=== PATIENT | female | born 1940 | race Caucasian/White ===

== ENCOUNTER 2018-02-14 15:25 | Inpatient (IN) | payer MEDICARE, BC ==
--- OUTSIDE RECORDS SUMMARY | 2018-02-14 15:51 | XMS REPORT ---
:1940 External Reference #:[id number] Author Organization [facility] Address [address] [address] Phone [phone] Care Team Providers Name Role Phone Lizbeth Doshi MD Primary Care Physician Unavailable Payers Type Date Identification Numbers Payment Provider Subscriber Medicare Primary Policy Number: [id number] Medicare Kathi Magana PayID: [id number] [address] [place] [address] Medigap Part B Effective: 2013 Policy Number: BS Facets Kathi Magana [id number] PayID: [id number] [address] [address] [place] [address] Problems Date Description Provider Status Onset: 08/03/2016 Paroxysmal atrial fibrillation Jonel Ugalde M.D., [facility] , Active FASNC Onset: 07/09/2015 Essential hypertension Jonel Ugalde M.D., [facility], Active FASNC Onset: 07/09/2015 Chest pain Jonel Ugalde M.D., [facility], Active FASNC Onset: 11/06/2013 Dyspnea Jonel Ugalde M.D., [facility], Active FASNC Onset: 11/06/2013 Atrial fibrillation Jonel Ugalde M.D., [facility], Active FASNC Family History Date Family Member(s) Problem(s) Comments General Diabetes General Hypertension General Heart Disease General Stroke General Cancer General Rheumatoid Arthritis Social History Type Date Description Comments Marital Status Lives With Alone 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 [employer] Cigarette Use Former Cigarette Smoker 3 Packs 40 years Daily Cigarette Use Quit - Age 56 ETOH Use Denies alcohol use Smoking Patient is a former smoker quit in 1996 Recreational Drug Use Never Used Drugs Daily Caffeine Does Not Consume Caffeine Exercise Type/Frequency Exercises regularly Allergies, Adverse Reactions, Alerts Date Description Reaction Status Severity Comments 11/06/2013 Augmentin Cramps in stomach active per patient 08/03/2016 Levaquin active moderate, abdominal discomfort Medications Medication Date Status Form Strength Qnty SIG Indications Ordering Provider Nebulizer 01/26 Active Kit 1unit 1 unit J47.1 Cecile Kit/Tubing/Mout s nebulization Yina, hpiece every 4- 6 MD hours as needed Acapella 01/26 Active Misc use as J47.1 directed MD Yina Oxygen 01/26 Active Misc 1unit please use R09.02 s o2 at 3l/min Yina, during MD exertion, pls provide pt with portable o2 concentrator Warfarin Sodium Active 3mg 1 by mouth Glenda, daily as tavon Patel MD adjusted by Dr. Doshi Combivent Active Aerosol 20-100mcg 2 puffs 4 Unknown Respimat /0000 /Act times daily prn Ventolin HFA Active Aerosol 108(90Bas 2 puffs by Unknown e) mouth four mcg/Act times a day as needed Fluticasone Active Suspension 50mcg/Act 2 sprays Unknown each nostril daily as needed Advair Diskus Active 2 puffs Unknown twice a day Omeprazole Active Capsules DR 40mg 1 by mouth every day Bisoprolol Active Tablets 10mg Glenda Lizbeth Ayala MD Digoxin Active Tablets 125mcg 1 by mouth Glenda, daily Lizbeth Ayala MD Spironolactone Active Tablets 25mg 1 by mouth Glenda, daily Lizbeth Ayala MD Diltiazem HCL Active Caps ER 360mg Take One Unknown ER 24HR Capsule By Mouth One Time Daily Torsemide Active Tablets 20mg 1 by mouth daily Sodium Chloride Active Tablets 1gm 1 by mouth once a day Hydrocodone-Miller Active Tablets 5-325mg 1-2 by mouth keiry Doshiinophen / daily as Lizbeth Ayala needed Multivitamin Active Tablets Adlt 50+ once a day Unknown Adults 50+ /0000 Doxycycline 01/26 Hx Capsules 100mg 20cap 1 tablet by J44.1 Cecile Monohydrate s mouth every Yina, - 12 hours 02/05 Prednisone 01/26 Hx Tablets 10mg 30tab 30mg daily J44.1 Cecile /2017 s for 1 week, Yina, - 20mg daily 02/05 for 1 week, 10 mg daily for 1 week Keflex 02/11 Hx Capsules 500mg 9caps 1 by mouth Catarino three times D. Parag, - a day for 3 M.D. Sotalol HCL 02/11 Hx Tablets 160mg 180ta 1 tab by Jonel bs mouth twice Mosquera - per day Aftab, 01/25 M.D., FAC, JUAN PABLO Norvasc 01/14 Hx Tablets 2.5mg 90tab Take one 427.31 s tablet per Mosquera - day 01/14 M.D., FAC, JUAN PABLO Lisinopril 11/06 Hx Tablets 40mg 90tab 1/2 tablet s by mouth Mosquera - every day Ugalde, 12/28 M.D., FAC, JUAN PABLO Sotalol HCL 05/07 Hx Tablets 120mg 180ta 1 tab by bs mouth twice Mosquera - a day Ugalde02/11 M.D., FAC, JUAN PABLO Lisinopril Hx Tablets 20mg 1 po qd Unknown /0000 - 11/06 Aspirin Ec Hx Tablets [address] 81mg 100ta 1 po qd Unknown / bs - 01/[address] 40mg 30cap 1 po qd Unknown /0000 s - 08/02 Calcium Hx Tablets 600mg 1 po bid Unknown /0000 - 07/27 Flovent HFA Hx Aerosol 110mcg/Ac 3unit 2 puffs Unknown / t s twice daily - 10/11 Multivitamins Hx Capsules 1 by mouth Unknown /0000 every day - 01/25 Ranitidine HCL Hx Capsules 300mg 1 cap by Unknown /0000 mouth every - night 12/28 Losartan Hx Tablets 100mg 1 by mouth Unknown Potassium /0000 every day - 03/06 Amlodipine Hx Tablets 10mg 1 by mouth Unknown Besylate /0000 every day - 01/25 Jantoven Hx Tablets 3mg 1 tab by Unknown /0000 mouth in in - the morning 02/[address] 81mg 1 by mouth Unknown /0000 every day - 02/05 Vitamin D-3 Hx Capsules 1000Unit 1 by mouth Unknown /0000 every day - 02/05 Medications Administered in Office Medication Date Status Form Strength Qnty SIG Indications Ordering Provider Inj, Administered Injection Jonel Mosquera Regadenoson, 017 Ugalde, 0.1 MG M.D., FACC, FASNC Technetium TC Administered Injection Jonel Mosquera 99M 017 Ugalde, Tetrofosmin, M.D., FACC, Per Unit Dose FASNC Up To 40 Millicuries Inj, Administered Injection Jonel Mosquera Regadenoson, 015 Ugalde, 0.1 MG M.D., FACC, FASNC Technetium TC Administered Injection Jonel Mosquera 99M 015 Ugalde, Tetrofosmin, M.D., FACC, Per Unit Dose FASNC Up To 40 Millicuries Vital Signs Date Vital Result Comment 02/06/2018 Height 67 inches 5'7" Weight 135.00 lb BP Systolic 114 mmHg BP Diastolic 62 mmHg Respiratory Rate 20 /min Body Temperature 97.9 F Pain Level 4 BMI (Body Mass Index) 21.1 kg/m2 01/26/2018 Height 67 inches 5'7" Weight 135.00 lb per pt, at 3 weeks ago Heart Rate 92 /min BP Systolic Sitting 128 mmHg Rue reg cuff BP Diastolic Sitting 74 mmHg Rue reg cuff Respiratory Rate 16 /min O2 % BldC Oximetry 93 % On Ra BMI (Body Mass Index) 21.1 kg/m2 Neck Circumference in inches 14 03/14/2017 Height 67 inches 5'7" Weight 161.00 lb with shoes Heart Rate 84 /min reg with ectopy BP Systolic Sitting 130 mmHg Lue reg cuff BP Diastolic Sitting 70 mmHg Lue reg cuff BP Systolic Standing 124 mmHg Lue reg cuff BP Diastolic Standing 70 mmHg Lue reg cuff Respiratory Rate 14 /min BMI (Body Mass Index) 25.2 kg/m2 Ejection Fraction 60-65% 03/01/2017-echo 12/29/2016 Height 67 inches 5'7" 5'7 Weight 159.00 lb with shoes Heart Rate 80 /min BP Systolic Sitting 176 mmHg Lue reg cuff BP Diastolic Sitting 78 mmHg Lue reg cuff BP Systolic Standing 156 mmHg Lue reg cuff BP Diastolic Standing 76 mmHg Lue reg cuff Respiratory Rate 18 /min pt feels SOB BMI (Body Mass Index) 24.9 kg/m2 Ejection Fraction 60-65% echo 02/20/15 08/03/2016 Height 67 inches 5'7" 5'7 Weight 158.00 lb with shoes Heart Rate 86 /min BP Systolic Sitting 144 mmHg reg cuff Rue BP Diastolic Sitting 80 mmHg reg cuff Rue BP Systolic Standing 144 mmHg " " BP Diastolic Standing 72 mmHg " " Respiratory Rate 16 /min BMI (Body Mass Index) 24.7 kg/m2 Ejection Fraction 60-65% echo 02/20/15 07/28/2015 Height 67 inches 5'7 Weight 177.50 lb with shoes Heart Rate 82 /min BP Systolic Sitting 140 mmHg Ra lg cuff BP Diastolic Sitting 76 mmHg Ra lg cuff BP Systolic Standing 136 mmHg Ra lg cuff BP Diastolic Standing 70 mmHg Ra lg cuff Respiratory Rate 17 /min BMI (Body Mass Index) 27.8 kg/m2 Ejection Fraction 60-65% date 02/20/15 ECHO 07/09/2015 Height 67 inches 5'7" 5 Weight 177.00 lb Heart Rate 76 /min BP Systolic Sitting 138 mmHg left arm, reg cuff BP Diastolic Sitting 84 mmHg left arm, reg cuff BP Systolic Standing 136 mmHg left arm, reg cuff BP Diastolic Standing 78 mmHg left arm, reg cuff Respiratory Rate 16 /min BMI (Body Mass Index) 27.7 kg/m2 Ejection Fraction 60-65% 02/20/15 02/25/2015 Height 67 inches 5'7" 5 Weight 182.00 lb w/shoes Heart Rate 60 /min BP Systolic 138 mmHg LA reg cuff BP Diastolic 74 mmHg LA reg cuff BMI (Body Mass Index) 28.5 kg/m2 Ejection Fraction 60-65 echo 02/20/15 02/18/2015 Height 67 inches 5 Weight 183.00 lb Heart Rate 60 /min BP Systolic Sitting 142 mmHg right arm, reg cuff BP Diastolic Sitting 70 mmHg right arm, reg cuff BP Systolic Standing 140 mmHg right arm, reg cuff BP Diastolic Standing 68 mmHg right arm, reg cuff Respiratory Rate 20 /min BMI (Body Mass Index) 28.7 kg/m2 Ejection Fraction 62% 10/23/13 01/24/2015 Height 67 inches 5'7" Weight 183.00 lb Heart Rate 56 /min BP Systolic Sitting 194 mmHg LA reg cuff BP Diastolic Sitting 94 mmHg LA reg cuff BP Systolic Standing 172 mmHg LA BP Diastolic Standing 80 mmHg LA Respiratory Rate 14 /min BMI (Body Mass Index) 28.7 kg/m2 01/14/2015 Height 67 inches 5'7" Weight 183.00 lb no shoes Heart Rate 56 /min BP Systolic Sitting 162 mmHg Ra, reg cuff BP Diastolic Sitting 74 mmHg Ra, reg cuff BP Systolic Standing 154 mmHg Ra BP Diastolic Standing 78 mmHg Ra Respiratory Rate 16 /min BMI (Body Mass Index) 28.7 kg/m2 01/14/2014 Height 66.25 inches 5'6.25" Weight 178.00 lb Heart Rate 70 /min sitting/ 72 standing BP Systolic Sitting 148 mmHg BP Diastolic Sitting 84 mmHg BP Systolic Standing 154 mmHg BP Diastolic Standing 86 mmHg Respiratory Rate 18 /min BMI (Body Mass Index) 28.5 kg/m2 11/06/2013 Height 66.25 inches 5'6.25" Weight 176.00 lb Heart Rate 66 /min BP Systolic Sitting 174 mmHg left arm, reg cuff BP Diastolic Sitting 90 mmHg left arm, reg cuff BP Systolic Standing 156 mmHg left arm, reg cuff BP Diastolic Standing 84 mmHg left arm, reg cuff Respiratory Rate 16 /min BMI (Body Mass Index) 28.2 kg/m2 Results Test Date Test Result H/L Range Note Laboratory test 09/09/2016 Non-Primary Special Educator Interface SEE RESULT BELOW 1 finding Order Laboratory test 02/18/2015 Troponin I 0.03 ng/mL High <0.03 2, 3 finding Basic Metabolic 02/18/2015 Sodium 135 mmol/L 133-145 2 Panel Potassium 4.8 mmol/L 3.5-5.0 2 Chloride 99 mmol/L Low 101-111 2 Co2 Carbon Dioxide 29 mmol/L 22-32 2 Anion Gap 7 mmol/L 2-11 2 Glucose 96 mg/dL 70-100 2 Blood Urea Nitrogen 16 mg/dL 6-24 2 Creatinine 0.75 mg/dL 0.51-0.95 2 BUN/Creatinine Ratio 21.3 High 8-20 2 Calcium 9.2 mg/dL 8.6-10.3 2 Egfr Non- 75.3 >60 2 Egfr 96.9 >60 2, 4 CBC Auto Diff 02/05/2015 White Blood Count 8.6 10^3/uL 4.8-10.8 Red Blood Count 4.65 10^6/uL 4.0-5.4 Hemoglobin 14.5 g/dL 12.0-16.0 Hematocrit 43 % 35-47 Mean Corpuscular Volume 93 fL 80-97 Mean Corpuscular Hemoglobin 31 pg 27-31 Mean Corpuscular HGB Conc 33 g/dL 31-36 Red Cell Distribution Width 14 % 10.5-15 Platelet Count 285 10^3/uL 150-450 Mean Platelet Volume 9 um3 7.4-10.4 Abs Neutrophils 5.6 10^3/uL 1.5-7.7 Abs Lymphocytes 1.8 10^3/uL 1.0-4.8 Abs Monocytes 1.0 10^3/uL High 0-0.8 Abs Eosinophils 0.1 10^3/uL 0-0.6 Abs Basophils 0.1 10^3/uL 0-0.2 Abs Nucleated RBC 0 10^3/uL Granulocyte % 65.6 % 38-83 Lymphocyte % 21.2 % Low 25-47 Monocyte % 11.4 % High 1-9 Eosinophil % 1.2 % 0-6 Basophil % 0.6 % 0-2 Nucleated Red Blood Cells % 0 Inr/Protime 02/05/2015 Inr 3.26 High 0.78-1.07 Pre Cath Panel 02/05/2015 Activated Partial 45.8 seconds High 26.0-36.3 Thrombo Time Basic Metabolic Panel 02/05/2015 Sodium 135 mmol/L 133-145 Potassium 4.5 mmol/L 3.5-5.0 Chloride 100 mmol/L Low 101-111 Co2 Carbon Dioxide 31 mmol/L 22-32 Anion Gap 4 mmol/L 2-11 Glucose 83 mg/dL 70-100 Blood Urea Nitrogen 14 mg/dL 6-24 Creatinine 0.69 mg/dL 0.51-0.95 BUN/Creatinine Ratio 20.3 High 8-20 Calcium 9.1 mg/dL 8.6-10.3 Egfr Non- 82.9 >60 Egfr 106.7 >60 5 Basic Metabolic Panel 11/13/2013 Sodium 136 mmol/L 133-145 Potassium 4.4 mmol/L 3.5-5.0 Chloride 101 mmol/L 101-111 Co2 Carbon Dioxide 29.0 mmol/L 22-32 Anion Gap 6.0 mmol/L 2-11 Glucose 74 mg/dL 70-100 Blood Urea Nitrogen 14 mg/dL 6-24 Creatinine 0.70 mg/dL 0.50-1.40 BUN/Creatinine Ratio 20.0 8-20 Calcium 9.4 mg/dL 8.1-9.9 Egfr Non- 81.8 >60 Egfr 105.2 >60 6 Inr/Protime 11/13/2013 Inr 2.64 High 0.85-1.06 1 SEE RESULT BELOW Name: KATHI MAGANA : [address]: Abdoul Esteves MD Acct: [id number] Unit: [id number] AGE: 76 Location: THYROID Re09/09/16 SEX: F Status: REG REF SPEC: [id number] NATALI: 09/09/16-914 [facility] DR: Martin Augustin MD REQ: [id number] RECD: 09/09/16-999 STATUS: JUSTINE YAO DR: Abdoul Doshi MD _ ORDERED: FN ASP DEEP, FNA IMMEDIATE S FINAL DIAGNOSIS Thyroid, left inferior, Ultrasound guided, fine needle aspiration: Benign thyroid nodule-involutional (Reading class II). The specimen demonstrates abundant watery proteinaceous fluid, a modest amount of benign appearing follicular epithelium arranged in uniform sheets, medium sized follicles and only occasional small groups. Abundant pigmented and non-pigmented macrophages are seen in the background. No features of papillary carcinoma are seen. In this clinical setting the risk of malignancy is less than 3%. Clinical management of this thyroid nodule should be based on clinical and radiographic features as well as the above findings. THYROID LEFT - US GUIDED FINE NEEDLE ASPIRATION CLINICAL HISTORY Left inferior pole- 1.9x 1.6x 1.6cm CONTINUED ON NEXT PAGE * ML=Testing performed at Main Lab DEPARTMENT OF PATHOLOGY, [address] [place] [address] Kristofer Ferguson M.D. Director [facility] # [id number] RUN DATE: 09/09/16 [facility] LAB LIVE PAGE 2 Patient: KATHI MAGANA [id number] (Continued) IMMEDIATE INTERPRETATION (Continued) IMMEDIATE INTERPRETATION Pass 1-inadequate Pass 2-adequate GROSS DESCRIPTION 8- alcohol fixed slide(s) 2 - passes Signed (signature on file) Kristofer Ferguson MD 0948 END OF REPORT * ML=Testing performed at Main Lab DEPARTMENT OF PATHOLOGY, [address] [place] [address] Kristofer Ferguson M.D. Director [facility] # [id number] 2 today 3 Reference Range and Interpretation: TnI (ng/mL) Interpretation Less Than 0.03 ng/mL Not supportive of diagnosis of DC 0.03 - 0.50 ng/mL Indeterminate: suggest serial studies if clinically indicated. Greater than 0.5 ng/mL Consistent with diagnosis of DC 4 Because ethnic data is not always readily available, this report includes an eGFR for both -Americans and non- Americans. The National Kidney Disease Education Program (NKDEP) does not endorse the use of the MDRD equation for patients that are not between the ages of 18 and 70, are , have extremes of body size, muscle mass, or nutritional status, or are non- or non-. According to the National Kidney Foundation, irrespective of diagnosis, the stage of the disease is based on the level of kidney function: Stage Description GFR(mL/min/1.73 m(2)) 1 Kidney damage with normal or decreased GFR 90 2 Kidney damage with mild decrease in GFR 60-89 3 Moderate decrease in GFR 30-59 4 Severe decrease in GFR 15-29 5 Kidney failure <15 (or dialysis) 5 Because ethnic data is not always readily available, this report includes an eGFR for both -Americans and non- Americans. The National Kidney Disease Education Program (NKDEP) does not endorse the use of the MDRD equation for patients that are not between the ages of 18 and 70, are , have extremes of body size, muscle mass, or nutritional status, or are non- or non-. According to the National Kidney Foundation, irrespective of diagnosis, the stage of the disease is based on the level of kidney function: Stage Description GFR(mL/min/1.73 m(2)) 1 Kidney damage with normal or decreased GFR 90 2 Kidney damage with mild decrease in GFR 60-89 3 Moderate decrease in GFR 30-59 4 Severe decrease in GFR 15-29 5 Kidney failure <15 (or dialysis) 6 Because ethnic data is not always readily available, this report includes an eGFR for both -Americans and non- Americans. The National Kidney Disease Education Program (NKDEP) does not endorse the use of the MDRD equation for patients that are not between the ages of 18 and 70, are , have extremes of body size, muscle mass, or nutritional status, or are non- or non-. According to the National Kidney Foundation, irrespective of diagnosis, the stage of the disease is based on the level of kidney function: Stage Description GFR(mL/min/1.73 m(2)) 1 Kidney damage with normal or decreased GFR 90 2 Kidney damage with mild decrease in GFR 60-89 3 Moderate decrease in GFR 30-59 4 Severe decrease in GFR 15-29 5 Kidney failure <15 (or dialysis) Procedures Date CPT Code Description Status 03/07/2017 97282 Stress Test Completed 03/07/2017 54137 Myocardial Perfusion Imaging Tomographic (Spect) Completed Multiple Studies 03/01/2017 16468 ECHO Transthoracic, Real-Time 2D With Doppler And Color Completed Flow 12/29/2016 02147 EKG Tracing & Interpretation Completed 10/12/2016 84000 Pace Maker Eval W/Iterative Adjment Dual Lead Completed 08/03/2016 55635 EKG Tracing & Interpretation Completed 04/02/2016 74873 Pace Maker Eval W/Iterative Adjment Dual Lead Completed 09/25/2015 93697 Pace Maker Eval W/Iterative Adjment Dual Lead Completed 07/21/2015 44037 Stress Test Completed 07/21/2015 31323 Myocardial Perfusion Imaging Tomographic (Spect) Completed Multiple Studies 03/20/2015 00216 Pace Maker Eval W/Iterative Adjment Dual Lead Completed 02/25/2015 56450 EKG Tracing & Interpretation Completed 02/20/2015 06325 ECHO Transthoracic, Real-Time 2D With Doppler And Color Completed Flow 02/12/2015 67558 EKG, Interpretation Only Completed 02/11/2015 00061 Interrogation Device Eval In Person W/DR Completed Analysis,Single,Dual,Mul 02/11/2015 79962 EKG, Interpretation Only Completed 02/10/2015 95785 EKG, Interpretation Only Completed 02/10/2015 24200 EKG, Interpretation Only Completed 02/10/2015 44273 Perm Pacemaker Av Sequential Atrial And Ventricular Completed 01/14/2015 26054 EKG Tracing & Interpretation Completed 12/04/2013 Mammogram Completed 11/06/2013 73198 EKG Tracing & Interpretation Completed 10/23/2013 17738 ECHO Transthoracic, Real-Time 2D With Doppler And Color Completed Flow Encounters Type Date Location Provider CPT E/M Dx Office Visit 01/26/2018 [place] [address] J44.1 3:00[facility] J90 J47.1 R09.02 Office Visit 03/14/2017 11:45a [facility] [place], 42089 R07.9 Blood Bank Attendant M.Niesha., FACC, FASNC Office Visit 12/29/2016 8:45a [facility] Jonel Ugalde, 36566 I48.0 Blood Bank Attendant Neel.Rufino, FACC, FASNC R07.9 Office Visit 08/03/2016 2:30p [facility] Jonel Ugalde, 80760 I48.0 Blood Bank Attendant M.Rufino, FACC, FASNC Z95.0 Office Visit 07/28/2015 12:15p [facility] Jonel Ugalde, 96348 R07.9 Blood Bank Attendant At [facility].Rufino, FACC, FASNC Office Visit 07/09/2015 11:45a [facility] Jonel Ugalde, 07995 786.50 Blood Bank Attendant At [facility].Rufino, FACC, FASNC 401.9 Office Visit 02/18/2015 1:00p [facility] Catarino Tuttle 11792 427.31 [facility] 786.05 786.50 Office Visit 01/24/2015 2:30p [facility] Catarino Tuttle, 17756 427.31 Luis Alberto Glasgow 427.81 Office Visit 01/14/2015 1:45p [facility] Jonel Ugalde, 76158 427.31 Luis Alberto [place], FAC, FASAR Office Visit 01/14/2014 11:30a [facility] Jonel Ugalde, 66419 427.31 Luis Alberto Glasgow, FAC, FASAR Office Visit 11/06/2013 1:45p [facility] [place], 98836 427.31 [facility] At [facility] Myah, FAC, FASAR 786.05 Plan of Care Future Appointment(s):05/08/2018 1:45 pm - Zacarias Abernathy M.D. at [facility]03/01/2018 11:40 am - Ica Pacer Schedule at [facility]02/20/2018 1:00 pm - Cecile Bran MD at [facility]02/06/2018 - Zacarias Abernathy M.D.S72.001A Fracture of unsp part of neck of right femur, initNew Therapy:Physical XyjalwgX52.641 Presence of right artificial hip joint
--- OUTSIDE RECORDS SUMMARY | 2018-02-14 15:52 | XMS REPORT ---
:1940 External Reference #:[id number] Author Organization [employer] Address [address] [address] Phone [phone] Care Team Providers Name Role Phone Lizbeth Doshi MD Primary Care Physician Unavailable Payers Type Date Identification Numbers Payment Provider Subscriber Medicare Primary Policy Number: [id number] Medicare Kathi Magana PayID: [id number] [address] [place] [address] Medigap Part B Effective: 2013 Policy Number: BS Facets Kathi Magana [id number] PayID: [id number] [address] [address] [place] [address] Problems Date Description Provider Status Onset: 08/03/2016 Paroxysmal atrial fibrillation Jonel Ugalde M.D., [facility] , Active FASNC Onset: 07/09/2015 Essential hypertension Jonel Ugalde M.D., [facility], Active FASNC Onset: 07/09/2015 Chest pain Jonel Ugalde M.D., [facility], Active FASNC Onset: 11/06/2013 Dyspnea Jonel Ugalde M.D., [facility], Active FASNC Onset: 11/06/2013 Atrial fibrillation Jonel Ugalde M.D., [facility], Active FASNC Social History Type Date Description Comments Marital Status Lives With Alone 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 [employer] Cigarette Use Former Cigarette Smoker 3 Packs 40 years Daily Cigarette Use Quit - Age 56 ETOH Use Denies alcohol use Smoking Patient is a former smoker quit in 1996 Recreational Drug Use Never Used Drugs Daily Caffeine Does Not Consume Caffeine Exercise Type/Frequency Exercises rarely Allergies, Adverse Reactions, Alerts Date Description Reaction Status Severity Comments 11/06/2013 Augmentin Cramps in stomach active per patient 08/03/2016 Levaquin active moderate, abdominal discomfort Medications Medication Date Status Form Strength Qnty SIG Indications Ordering Provider Nebulizer 01/26 Active Kit 1unit 1 unit J47.1 Cecile Kit/Tubing/Mout s nebulization Yina hpiece every 4- 6 MD hours as needed Acapella 01/26 Active Misc use as J47.1 Cecile directed MD Yina Doxycycline 01/26 Active Capsules 100mg 20cap 1 tablet by J44.1 Cecile Monohydrate s mouth every Yina, 12 hours Prednisone 01/26 Active Tablets 10mg 30tab 30mg daily J44.1 Cecile s for 1 week, Yina, 20mg daily MD for 1 week, 10 mg daily for 1 week Oxygen 01/26 Active Misc 1unit please use R09.02 s o2 at 3l/min Yina, during MD exertion, pls provide pt with portable o2 concentrator Warfarin Sodium Active 3mg 1 by mouth Glenda, daily as tavon Patel MD adjusted by Dr. Doshi Combivent Active Aerosol 20-100mcg 2 puffs 4 Unknown Respimat /0000 /Act times daily prn Ventolin HFA Active Aerosol 108(90Bas 2 puffs by Unknown /0000 e) mouth four mcg/Act times a day as needed Fluticasone Active Suspension 50mcg/Act 2 sprays Unknown Propionate each nostril daily as needed Advair Diskus Active 2 puffs Unknown /0000 twice a day Omeprazole Active Capsules DR 40mg 1 by mouth Unknown / every day Bisoprolol Active Tablets 10mg Glenda Lizbeth Ayala MD Digoxin Active Tablets 125mcg 1 by mouth Glenda, / daily Lizbeth Ayala MD Spironolactone Active Tablets 25mg 1 by mouth Glenda, daily Lizbeth Ayala MD Diltiazem HCL Active Caps ER 360mg Take One Unknown ER 24HR Capsule By Mouth One Time Daily Torsemide Active Tablets 20mg 1 by mouth Unknown / daily Sodium Chloride Active Tablets 1gm 1 by mouth Unknown once a day Hydrocodone-Miller Active Tablets 5-325mg 1-2 by mouth keiry Doshiinophen daily as Lizbeth Ayala, needed Kestacy 02/11 Hx Capsules 500mg 9caps 1 by mouth Catarino three times D. Brand, - a day for 3 M.D. Sotalol HCL 02/11 Hx Tablets 160mg 180ta 1 tab by Jonel bs mouth twice Mosquera - per day Ugalde, 01/25 M.D., FAC, JUAN PABLO Norvasc 01/14 Hx Tablets 2.5mg 90tab Take one 427.31 s tablet per Mosquera - day Ugalde, 01/14 M.D., FAC, JUAN PABLO Lisinopril 11/06 Hx Tablets 40mg 90tab 1/2 tablet s by mouth Mosquera - every day Ugalde, 12/28 M.D., FAC, JUAN PABLO Sotalol HCL 05/07 Hx Tablets 120mg 180ta 1 tab by bs mouth twice Mosquera - a day Ugalde, 02/11 M.D., [facility], JUAN PABLO Lisinopril Hx Tablets 20mg 1 po qd Unknown / - 11/06 Aspirin Ec Hx Tablets DR 81mg 100ta 1 po qd Unknown / bs - 01/[address] 40mg 30cap 1 po qd Unknown / s - 08/02 Calcium Hx Tablets 600mg 1 po bid Unknown /0000 - 07/27 Flovent HFA Hx Aerosol 110mcg/Ac 3unit 2 puffs Unknown t s twice daily - 10/11 Multivitamins Hx Capsules 1 by mouth Unknown / every day - 01/25 Ranitidine HCL Hx Capsules 300mg 1 cap by Unknown /0000 mouth every - night 12/28 Losartan Hx Tablets 100mg 1 by mouth Unknown Potassium /0000 every day - 03/06 Amlodipine 00/00 Hx Tablets 10mg 1 by mouth Unknown Besylate /0000 every day - 01/25 Medications Administered in Office Medication Date Status Form Strength Qnty SIG Indications Ordering Provider Inj, Administered Injection Jonel Mosquera Regadenoson, 017 Ugalde, 0.1 MG M.D., FACC, FASNC Technetium TC Administered Injection Jonel Mosquera 99M 017 Aftab Tetrofosmin MLizethD., FACC, Per Unit Dose FASNC Up To 40 Millicuries Inj, Administered Injection Jonel Mosquera Regadenoson, 015 Ugalde, 0.1 MG M.D., FACC, FASNC Technetium TC Administered Injection Jonel Mosquera 99M 015 Ugalde, Tetrofosmin, M.D., FACC, Per Unit Dose FASNC Up To 40 Millicuries Vital Signs Date Vital Result Comment 01/26/2018 Height 67 inches 5'7" Weight 135.00 lb per pt, at drLizeth 3 weeks ago Heart Rate 92 /min [...] Result H/L Range Note Laboratory test 09/09/2016 Non-Ruby Developer Interface SEE RESULT BELOW 1 finding Order [...] [address]: Abdoul Esteves MD Acct: [id number] Unit: [id number] AGE: 76 Location: THYROID Re09/09/16 SEX: F Status: REG REF SPEC: [id number] NATALI: 09/09/[address] [facility] [address]: Martin Augustin MD REQ: [id number] RECD: 09/09/16 STATUS: JUSTINE YAO DR: Abdoul Doshi MD _ ORDERED: FN ASP DEEP, FNA IMMEDIATE S FINAL DIAGNOSIS Thyroid, left inferior, Ultrasound guided, fine needle aspiration: Benign thyroid nodule-involutional ([employer] class II). The specimen demonstrates abundant watery [...] performed at Main Lab DEPARTMENT OF PATHOLOGY, [address] [place] [address] Kristofer Ferguson M.D. Director JOCELYN # [id number] RUN DATE: 09/09/16 [facility] LAB LIVE PAGE 2 Patient: KATHI MAGANA Carina [id number] (Continued) IMMEDIATE INTERPRETATION (Continued) IMMEDIATE INTERPRETATION Pass 1-inadequate Pass 2-adequate GROSS DESCRIPTION 8- alcohol fixed slide(s) 2 - passes Signed (signature on file) Kristofer Ferguson MD [id number] END OF REPORT * ML=Testing performed at Main Lab DEPARTMENT OF PATHOLOGY, [facility] [place] [address] Kristofer Ferguson M.D. Director JOCELYN # [id number] 2 today 3 Reference Range and Interpretation: TnI (ng/mL) Interpretation Less Than 0.03 ng/mL Not supportive of diagnosis of [place] 0.03 - 0.50 ng/mL Indeterminate: suggest serial studies if clinically indicated. Greater than 0.5 ng/mL Consistent with diagnosis of [place] 4 Because ethnic data is not always [...] Procedures Date CPT Code Description Status 03/07/2017 17144 Stress Test Completed 03/07/2017 33152 Myocardial Perfusion Imaging Tomographic (Spect) Completed Multiple Studies 03/01/2017 33050 ECHO Transthoracic, Real-Time 2D With Doppler And Color Completed Flow 12/29/2016 07501 EKG Tracing & Interpretation Completed 10/12/2016 14714 Pace Maker Eval W/Iterative Adjment Dual Lead Completed 08/03/2016 05630 EKG Tracing & Interpretation Completed 04/02/2016 02526 Pace Maker Eval W/Iterative Adjment Dual Lead Completed 09/25/2015 47244 Pace Maker Eval W/Iterative Adjment Dual Lead Completed 07/21/2015 98332 Stress Test Completed 07/21/2015 06466 Myocardial Perfusion Imaging Tomographic (Spect) Completed Multiple Studies 03/20/2015 13447 Pace Maker Eval W/Iterative Adjment Dual Lead Completed 02/25/2015 14763 EKG Tracing & Interpretation Completed 02/20/2015 02638 ECHO Transthoracic, Real-Time 2D With Doppler And Color Completed Flow 02/12/2015 84807 EKG, Interpretation Only Completed 02/11/2015 41298 Interrogation Device Eval In Person W/DR Completed Analysis,Single,Dual,Mul 02/11/2015 14658 EKG, Interpretation Only Completed 02/10/2015 14732 EKG, Interpretation Only Completed 02/10/2015 63566 EKG, Interpretation Only Completed 02/10/2015 50732 Perm Pacemaker Av Sequential Atrial And Ventricular Completed 01/14/2015 35791 EKG Tracing & Interpretation Completed 12/04/2013 Mammogram Completed 11/06/2013 56751 EKG Tracing & Interpretation Completed 10/23/2013 49647 ECHO Transthoracic, Real-Time 2D With Doppler And Color Completed Flow Encounters Type Date Location Provider CPT E/M Dx Office Visit 03/14/2017 [facility] Jonel Ugalde, 16884 R07.9 11:45a Luis Alberto Shaikh.Rufino, [facility], FASDC Office Visit 12/29/2016 [facility] Ugal[facility], 06000 I48.0 8:45a Stitch Bonding Machine Operator Neel.Rufino, [facility], FASNC R07.9 Office Visit 08/03/2016 2:30p [facility] Jonel Ugalde, 30203 I48.0 [facility] M.Rufino, [facility], FASDC Z95.0 Office Visit 07/28/2015 12:15p [facility] Jonel Ugalde, 84431 R07.9 [facility], [facility] Office Visit 07/09/2015 11:45a [facility] Jonel Ugalde, 71204 786.50 [facility], [facility] 401.9 Office Visit 02/18/2015 1:00p [facility] Catarino Tuttle, 78445 427.31 [facility] At [facility] 786.05 786.50 Office Visit 01/24/2015 2:30p [facility] Catarino Tuttle, 34721 427.31 [facility].Rufino 427.81 Office Visit 01/14/2015 1:45p [facility] Joenl Ugalde, 82370 427.31 [facility] Neel.Rufino, [facility], FASDC Office Visit 01/14/2014 11:30a [facility] Jonel Ugalde, 03499 427.31 [facility] Myah, [facility], FASDC Office Visit 11/06/2013 1:45p [facility] Jonel Ugalde, 73686 427.31 [facility] At [facility], [facility], [facility] 786.05 Plan of Care Future Appointment(s):02/20/2018 1:00 pm - Cecile Bran MD at [facility]02/06/2018 2:00 pm - Zac[facility] Abern[facility]/2018 - Cecile Bran MDJ44.1 Chronic obstructive pulmonary disease w (acute) exacerbationNew Medication:Doxycycline Monohydrate 100 mgPrednisone 10 mgFollow up:3 qcddaT87 Pleural effusion, not elsewhere classifiedNew Xrays:Chest PA & Lat 2 VWSJ47.1 Bronchiectasis with (acute) exacerbationNew Medication:Nebulizer Kit/Tubing/PodhqhpkrrWrnyaemgD68.02 HypoxemiaNew Medication:Oxygen
[2018-02-14] MEDS ORDERED: Nitroglycerin TAB 0.4 MG* 0.4 MG TAB SL ONE (16:33)
[2018-02-14] MEDS ORDERED: Albuterol/Ipratropium NEB.SOL* Albuterol 2.5 MG/Ipratropium 0.5 MG 3 ML INH ONE (16:33)
[2018-02-14] MEDS ORDERED: Aspirin 81 mg CHEW TAB* 81 MG TAB.CHEW PO ONE (16:33)
--- NOTE | 2018-02-14 16:39 | RAD ---
Indication: Chest pain. Single frontal view of the chest performed at 1615 hours was reviewed. Comparison is made with previous exam dated January 26, 2018. Chronic pleural changes are noted. Peribronchial thickening is noted. There is suggestion of left basilar airspace disease which May represent left lower lobe pneumonia. Pacemaker leads are in place. IMPRESSION: There may BE early airspace disease in the left lower lobe which may represent pneumonia. Chronic interstitial disease is present with chronic pleural changes. IMPRESSION: NO ACTIVE CARDIOPULMONARY DISEASE IS NOTED.
[2018-02-14 16:54] LABS: INR 2.32 (0.77-1.02)
[2018-02-14 17:00] LABS: ABS Basophils 0 10^3/ul (0-0.2); ABS Eosinophils 0.1 10^3/ul (0-0.6); ABS Lymphocytes 1.2 10^3/ul (1.0-4.8); ABS Monocytes 1.3 10^3/ul (0-0.8); ABS Neutrophils 14.6 10^3/ul (1.5-7.7); ABS Nucleated RBC 0 10^3/ul; Eosinophil % 0.6 % (0-6); Hematocrit 37 % (35-47); Hemoglobin 12.7 g/dl (12.0-16.0); Lymphocyte % 7.2 % (25-47); Mean Corpuscular HGB Conc 34 g/dl (31-36); Mean Corpuscular Hemoglobin 30 pg (27-31); Mean Corpuscular Volume 89 fL (80-97); Mean Platelet Volume 8.1 um3 (7.4-10.4); Nucleated Red Blood Cells % 0; Platelet Count 355 10^3/ul (150-450); Red Blood Count 4.18 10^6/ul (4.0-5.4); Red Cell Distribution Width 15 % (10.5-15); White Blood Count 17.3 10^3/ul (3.5-10.8)
[2018-02-14 17:01] LABS: EGFR Non-African American 100.5 (>60)
[2018-02-14] MEDS ORDERED: Iohexol 350* (CONTRAST) 500 ML MDV IV ONE (17:36)
[2018-02-14] MEDS ORDERED: Ondansetron INJ* 2 MG/ML VIAL IV PRN (18:17)
[2018-02-14] MEDS ORDERED: Acetaminophen TAB* 325 MG PO PRN (18:17)
[2018-02-14] MEDS ORDERED: Albuterol 2.5 MG/3 ML NEB.SOL* (0.083%) INH PRN (18:22)
[2018-02-14] MEDS ORDERED: Albuterol HFA INHALER* 8 gm MDI INH PRN (18:23)
[2018-02-14] MEDS ORDERED: HYDROcodone/ACETAMIN 5-325 MG* 1 TAB PO PRN (18:24)
[2018-02-14] MEDS ORDERED: NS 0.9% 1000 ML* 1,000 ML IV SCH (18:30)
[2018-02-14] MEDS ORDERED: Lidocaine 2% VISCOUS* 15 ML UDC PO ONE (18:32)
[2018-02-14] MEDS ORDERED: Al Hydrox/Mg Hydrox/Simet LIQ* 30 ML UDC PO ONE (18:32)
--- NOTE | 2018-02-14 18:58 | RAD ---
Indication: Shortness of breath, chest pain status post right lower lobectomy. Contrast: Administered 80.0 ml of OMNIPAQUE 350 mg/ml CTA of the chest performed after IV contrast administration. Coronal and sagittal reconstructed images were obtained. Comparison is made with previous exam dated January 16, 2016. The pulmonary arterial tree is well opacified. There are no evidence of filling defects present to suggest pulmonary embolus. There are enlarged lymph nodes in the mediastinum. Pretracheal adenopathy measuring up to 10 mm is noted. Left hilar adenopathy measuring up to 18 mm is noted. Subcarinal lymphadenopathy measuring up to 3.2 cm. Bilateral hilar adenopathy measuring up to 15 mm on the right and 12 mm on the left. There is left pleural effusion noted. The trachea and major bronchi appear patent. Dilated bronchiectasis with mucus plugging is noted in the periphery of the right lower lobe. Scarring is noted in the anterior lingula. No alveolar consolidation is noted. IMPRESSION: No evidence of pulmonary embolus is noted. There is increasing mediastinal adenopathy when compared to previous exam. Correlation is suggested. Possibility of sarcoid or lymphoma should be considered. Dilated bronchiectasis with peripheral mucous plugging in the lower lobes bilaterally.. Spiculated density in the left anterior upper lobe is likely postinflammatory and follow-up exam is suggested.
[2018-02-14] MEDS: Sodium Chloride TAB* 1 GM PO SCH (20:03)
[2018-02-14] MEDS: Mometasone/Formoter 100/5 MDI INH SCH (21:33)
--- NOTE | 2018-02-14 21:34 | HP ---
CC: Dr. Doshi* HISTORY AND PHYSICAL: DATE OF ADMISSION: 02/14/18 PRIMARY CARE PROVIDER: Dr. Doshi. ATTENDING PHYSICIAN WHILE IN THE HOSPITAL: Lizbeth South MD* (report dictated by Paul Jiménez NP). CHIEF COMPLAINT: Chest pain. HISTORY OF PRESENT ILLNESS: Mrs. Magana is a 77-year-old female patient coming into the ED today with complaints of chest discomfort since actually Tuesday. She states she has recently been following with Dr. Bran due to a history of significant COPD. In addition to this, also recent thoracentesis done in October back in [place] of this year and frequent pneumonias. She carries a history of COPD. 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 She has been recently seen by Dr. Bran, was felt to have a COPD exacerbation, was started on medications. In addition to this, also started on presumably hypertonic saline. The patient states she took a dose of the hypertonic saline on the Tuesday and she had a burning chest pressure discomfort in the epigastric area that felt similar to when she took her sodium pills for her hyponatremia. She said the pain had been got better. She took her another dose on Tuesday, then the pain came right back and she has had the discomfort ever since then on Tuesday pretty severe. She states it has actually gone now. She describes it as a burning discomfort. She states it was nonexertional. She said she did not feel anymore short of breath and she states her breathing has improved. She still is coughing up sputum that is greenish colored, but she has finished her antibiotics and continuing her steroid taper per the directions of Dr. Bran. She states that she has not had a new nausea or vomiting. Of note, she was recently admitted into initially hospital in [place] for a hip fracture. She was down there for her brother's wake and services. She broke her hip there, was admitted to the hospital, initially found to be hyponatremic, also found to have pneumonia, this was treated some and the hip was fixed. Three weeks after in rehab, she was short of breath again, coughing, she went back, ultimately had a thoracentesis. They drained off about 2 L according to the patient. Dr. Bran's note says that they drained off about a liter and a half , and ultimately did not grow back anything, and she had been following with Dr. Bran for this. She has seen the patient once. The patient though today is coming back to the hospital because of chest pain. There has been again no recent fevers reported and she states her breathing is feeling better, but the chest pain was concerning. PAST MEDICAL HISTORY: Significant for: 1. 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 2. AFib. 3. COPD. 4. GERD. 5. Chronic pain. 6. CHF. 7. History of lung abscess. 8. Thoracentesis recently for pleural effusion. 9. Hypertension. PAST SURGICAL HISTORY: 1. She has had a hip fracture with a status post ORIF. 2. Wedge resection. 3. Pacemaker placement. 4. Parathyroid surgery. 5. Cataract extraction. 6. Ablation. MEDICATIONS: Home meds include: 1. Prednisone 10 mg daily. She is on this for 2 more days. 2. Sodium chloride 1 g p.o. b.i.d. 3. Arvin 1 to 2 tablets p.o. daily as needed. 4. Demadex 20 mg daily. 5. Diltiazem 360 mg daily. 6. Aldactone 25 mg daily. 7. Digoxin 0.125 mg p.o. daily. 8. Warfarin 3 mg daily. 9. Zebeta 20 mg daily. 10. Prilosec 20 mg daily. 11. Advair 1 puff inhaled b.i.d. 12. Ventolin 1 puff inhaled every 6 hours as needed. 13. Combivent 2 puffs inhaled q.i.d. as needed. ALLERGIES TO MEDICATIONS: Include AUGMENTIN and LEVAQUIN. FAMILY HISTORY: Her mother had a history of [place]. Father had a history of breast cancer. SOCIAL HISTORY: She is a former smoker. She quit about 20 years ago. She was a 3- pack a day smoker. She does not drink alcohol. Surrogate decision maker is her son, Geo. REVIEW OF SYSTEMS: There is no documented fever. She denies any significant weight change. There is no double vision. She denies having any ear discharge. She denied having any rhinorrhea. There is no sore throat. No thyroid enlargement. Chest pain per my HPI. There is no abdominal pain. There is no nausea. There is no vomiting. There is no dysuria, no frequency. There is no seizure, no loss of consciousness, no pruritus, and no skin ulcerations. Review of 14 systems completed, all others negative. PHYSICAL EXAMINATION GENERAL: At this time, Mrs. Magana is a 77-year-old female patient. She is sitting in the ED stretcher. She does not appear to be in any acute distress. VITAL SIGNS: Blood pressure 113/56, pulse 67, respirations 20, O2 saturation 99 %, temperature 97.8. HEENT: Head: Atraumatic, normocephalic. Eyes: EOMs are intact. Sclerae anicteric, not pale. Throat: Oral mucosa appears to be dry. No oropharyngeal erythema. NECK: Supple. LUNGS: Diminished in the bases. She had no wheezes, no rales or rhonchi at this point. There was some crackles in the left base. She had equal diaphragmatic expansion. HEART: Sounds S1, S2. Regular rate and rhythm. No murmurs, rubs, or gallops. ABDOMEN: Soft, flat, nontender. Bowel sounds were present. EXTREMITIES: Pulses were 2+ throughout. She is moving all 4 extremities with 5 /5 strength. She had no peripheral edema. NEUROLOGIC: The patient is awake. She is alert. She is oriented x3. Tongue midline. Coal Conveyor Operator were equal. She had no gross focal deficits. SKIN: Grossly intact. DIAGNOSTIC STUDIES/LAB DATA: WBC of 17.3, RBC of 4.18, hemoglobin 12.7, hematocrit 31.7, platelet count of 355. The INR was 2.32, the PTT was 32.6. The sodium was 123 and her last sodium was 133. According to the patient, she was in the 120s in [place]. Next, she had a bicarb of 33, BUN 12, creatinine 0.58, glucose 101, lactate 1.6, calcium 8.9. Total bili 0.4, AST 19, ALT 14, alk phos 45. Troponin 0.01. Albumin of 3.2. She did have an EKG obtained today. EKG today shows AFib with ventricular paced complexes. She appears to have a left bundle-branch block underlying her p[place] rhythm. Last EKG from 3 years ago appears that the last EKGs were all paced. No recent EKG for comparison. She did have a stress test done about a year ago, which was negative. She had a chest x-ray obtained today again, impression: No active cardiopulmonary disease. Old medical records were reviewed. ASSESSMENT AND PLAN: Mrs. Magana is a 77-year-old female patient coming into the emergency department today with complaints of chest discomfort. We were asked to evaluate for admission. She will be admitted under observation status for: 1. Chest pain. At this point again the chest pain is atypical, it has been going on constantly since Tuesday and initial troponin was negative, which is reassuring. I am going to get 2 more troponins and EKG in the morning. I do think she deserves a stress test. Her CHA score is 3 and I ordered a Lexiscan stress test for her. We will place her on telemetry. I will start aspirin therapy, was given here in the ED. We will continue to follow. 2. History of atrial fibrillation. Continue with her rate controlling agents. I am checking her digoxin level and we will continue her warfarin. 3. History of atrial thrombus. Again, continue her warfarin. 4. Leukocytosis. This is probably secondary to the prednisone, but I am panculturing her. If she spikes a fever, I will start antibiotics. 5. History of chronic obstructive pulmonary disease. She does not appear to be in exacerbation at this point. I will continue her meds as prescribed. 6. Gastroesophageal reflux disease. Continue PPI therapy. I suspect the pain she had today is probably related to gastroesophageal reflux disease. I will give her a GI cocktail. 7. Chronic pain. Continue meds as prescribed. 8. History of congestive heart failure. I am going to hold her diuretics. We will diurese as needed. 9. Hyponatremia. I suspect this is probably from medications. In addition to this, she does appear to be mildly dehydrated. I am going to give her normal saline at 100 an hour. I will repeat the BNP at midnight to night just to follow this to make sure she is correcting appropriately. 10. Recent thoracentesis with lung abscess. She can continue to follow with Dr. Bran. We are getting a CTA of the chest to reevaluate. Also because of the hyponatremia, we are going to make sure she does not have a mass effect. 11. Hyponatremia. I am checking urinalysis, serum osmol, TSH, and cortisol. 12. Hypertension. Continue meds as prescribed. 13. DVT prophylaxis: Her INR is therapeutic, so we will continue with her warfarin. 14. Code status: She wishes to be a full code. 15. Fluids, electrolytes, nutrition: She can have a heart-healthy diet. TIME SPENT: On admission was 60 minutes, greater than half the time was spent face- to-face with the patient obtaining my history and physical, other half of the time was spent going over the plan of care with the patient and implementing the plan of care. I discussed the plan of care with my attending, Dr. South; she is in agreement. PAUL JIMÉNEZ NP ADDENDUM TO HISTORY AND PHYSICAL: I did just review the CTA chest results on Mrs. Magana and it does appear that the patient has no evidence of PE, but there is increasing mediastinal adenopathy when compared to previous exam. In addition to this, possibility of sarcoid or other formation should be considered and there is dilated bronchiectasis with peripheral mucus plugging in the lower lobes bilaterally. There is a spiculated density in the left anterior lobe, likely postinflammatory and followup exam is suggested. Due to the CTA findings, I am going to go ahead and cancel the stress test as her symptoms were atypical for acute coronary syndrome. I do think that we should probably touch base with Pulmonology in the morning as the patient may need bronchoscope. We may need to get biopsy of this lymph node to rule out underlying malignancy. At this point, I am holding off on a stress test in the patient. She had a stress test in February 2017 just about a year ago that was negative. Three troponins have been negative thus far and the symptoms are now resolved. I will repeat the EKG and again I will cancel the stress test for the time being to further work up the adenopathy and this lung density for the time being. PAUL JIMÉNEZ NP [id number]/CPS #: [id number] #: [id number] [facility] CENTERNiesha
--- NOTE | 2018-02-14 22:33 | HP ---
HISTORY AND PHYSICAL: ADDENDUM: I did just review the CTA chest results on Mrs. Magana and it does appear that the patient has no evidence of PE, but there is increasing mediastinal adenopathy when compared to previous exam . In addition to this, possibility of sarcoid or other formation should be considered and there is d ilated bronchiectasis with peripheral mucus plugging in the lower lobes bilaterally. There is a spic ulated density in the left anterior lobe, likely postinflammatory and followup exam is suggested. Du e to the CTA findings, I am going to go ahead and cancel the stress test as her symptoms were atypica l for acute coronary syndrome. I do think that we should probably touch base with Pulmonology in the morning as the patient may need bronchoscope. We may need to get biopsy of this lymph node to rule out underlying malignancy. At this point, I am holding off on a stress test in the patient. She had a stress test in February 2017 just about a year ago that was negative. Three troponins have been negati ve thus far and the symptoms are now resolved. I will repeat the EKG and again I will cancel the str ess test for the time being to further work up the adenopathy and this lung density for the time orin saravia TYRA MANLEY, ELSIE [id number]/[facility] #: [id number]
[2018-02-15 01:16] LABS: EGFR Non-African American 82.3 (>60)
[2018-02-15] MEDS: Mometasone/Formoter 100/5 MDI INH SCH ×2 (08:29→20:40)
[2018-02-15] MEDS ORDERED: guaiFENesin ER TAB 600 MG PO SCH (09:00)
[2018-02-15] MEDS ORDERED: Bisoprolol TAB* 5 MG PO SCH (09:00)
[2018-02-15] MEDS: Omeprazole CAP* 20 MG PO SCH (10:05)
[2018-02-15] MEDS: Diltiazem CD CAP* 180 MG PO SCH (10:05)
[2018-02-15] MEDS: Digoxin TAB* 0.125 MG PO SCH (10:06)
[2018-02-15] MEDS: Sodium Chloride TAB* 1 GM PO SCH ×2 (10:08→20:39)
[2018-02-15] MEDS: Aspirin 81 mg CHEW TAB* 81 MG TAB.CHEW PO SCH (10:08)
[2018-02-15] MEDS: predniSONE TAB* 10 MG PO SCH (10:08)
[2018-02-15 10:46] LABS: ABS Basophils 0.1 10^3/ul (0-0.2); ABS Eosinophils 0.1 10^3/ul (0-0.6); ABS Lymphocytes 0.8 10^3/ul (1.0-4.8); ABS Monocytes 1.2 10^3/ul (0-0.8); ABS Neutrophils 12.1 10^3/ul (1.5-7.7); ABS Nucleated RBC 0 10^3/ul; Eosinophil % 0.5 % (0-6); Hematocrit 37 % (35-47); Hemoglobin 12.3 g/dl (12.0-16.0); Lymphocyte % 5.3 % (25-47); Mean Corpuscular HGB Conc 33 g/dl (31-36); Mean Corpuscular Hemoglobin 30 pg (27-31); Mean Corpuscular Volume 90 fL (80-97); Mean Platelet Volume 7.5 um3 (7.4-10.4); Nucleated Red Blood Cells % 0; Platelet Count 351 10^3/ul (150-450); Red Blood Count 4.11 10^6/ul (4.0-5.4); Red Cell Distribution Width 16 % (10.5-15); White Blood Count 14.2 10^3/ul (3.5-10.8)
[2018-02-15 11:05] LABS: EGFR Non-African American 104.7 (>60)
--- NOTE | 2018-02-15 15:14 | PN ---
Subjective Date of Service: 02/15/18 Interval History: No more chest pain. She coughed for a week, ? if unusual for her. Cough was productive of dark sputum. Objective Active Medications: Acetaminophen (Tylenol Tab*) 650 mg PO Q4H PRN PRN Reason: FEVER/PAIN Hydrocodone Bitart/Acetaminophen ([place] 5-325 Tab*) 1 tab PO DAILY PRN PRN Reason: PAIN Albuterol (Ventolin 2.5 Mg/3 Ml Neb.Marni*) 2.5 mg INH Q2H PRN PRN Reason: SOB/WHEEZING Albuterol (Ventolin Hfa Inhaler*) 1 puff INH Q6H PRN PRN Reason: SOB/WHEEZING Aspirin (Aspirin 81 Mg Chew Tab*) 81 mg PO DAILY [facility] Last Admin: 02/15/18 10:08 Dose: 81 mg Bisoprolol Fumarate (Zebeta Tab*) 20 mg PO DAILY [facility] Last Admin: 02/15/18 10:06 Dose: 20 mg Demeclocycline HCl (Declomycin Tab*) 150 mg PO TID [facility] Digoxin (Lanoxin Tab*) 0.125 mg PO DAILY [facility] Last Admin: 02/15/18 10:06 Dose: 0.125 mg Diltiazem HCl (Cardizem Cd Cap*) 360 mg PO DAILY [facility] Last Admin: 02/15/18 10:05 Dose: 360 mg Guaifenesin (Mucinex*) 600 mg PO BID [facility] Last Admin: 02/15/18 10:06 Dose: 600 mg Mometasone Furoate/Formoterol Fumar (Dulera 100/5 Mdi*) 2 puff INH BID [facility] Last Admin: 02/15/18 08:29 Dose: 2 puff Omeprazole (Prilosec Cap*) 20 mg PO DAILY [facility] Last Admin: 02/15/18 10:05 Dose: 20 mg Ondansetron HCl (Zofran Inj*) 4 mg IV Q6H PRN PRN Reason: NAUSEA Prednisone (Deltasone Tab*) 10 mg PO DAILY [facility] Stop: 02/16/18 09:00 Last Admin: 02/15/18 10:08 Dose: 10 mg Sodium Chloride (Sodium Chloride Tab*) 1 gm PO BID [facility] Last Admin: 02/15/18 10:08 Dose: 1 gm Warfarin Sodium (Coumadin Tab(*)) 3 mg PO DAILY@1700 [facility] PRN Reason: Protocol Vital Signs - 8 hr 02/15/18 02/15/18 02/15/18 07:18 08:00 08:20 Temperature 97.9 F Pulse Rate 74 95 Respiratory 20 16 84 Rate Blood Pressure 116/37 (mmHg) O2 Sat by Pulse 100 20 Oximetry 02/15/18 02/15/18 02/15/18 08:23 10:06 11:03 Temperature 99.4 F Pulse Rate 84 100 78 Respiratory 20 20 Rate Blood Pressure 103/41 (mmHg) O2 Sat by Pulse 95 99 Oximetry 02/15/18 13:48 Temperature 98.4 F Pulse Rate 68 Respiratory Rate Blood Pressure 102/39 (mmHg) O2 Sat by Pulse 99 Oximetry Oxygen Devices in Use Now: Nasal Cannula Appearance: Alert, sitting up in bed. In good spirits. Tachypneic but otherwise looks comfortable. Eyes: No Scleral Icterus Neck: NL Appearance and Movements; NL JVP, No Thyroid Enlargement, Masses Respiratory: Symmetrical Chest Expansion and Respiratory Effort, Clear to Percussion, - - diminished BS BL Cardiovascular: NL Sounds; No Murmurs; No JVD, RRR, No Edema, - Extremities: No Edema, No Clubbing, Cyanosis, - Skin: No Rash or Ulcers, No Nodules or Sclerosis, - Neurological: Alert and Oriented x 3, NL Sensation Result Diagrams: 02/15/18 10:27 02/15/18 10:27 Microbiology and Other Data: Microbiology 02/14/18 20:10 Legionella Urinary Antigen - Final Urine Negative Legionella Antigen Streptococcus pneumoniae Ag Screen - Final Negative S. pneumo Antigen 02/14/18 18:50 Influenza Types A,B Antigen (MILLIE) - Final Nasopharyngeal Specimen received for Influenza A/B Molecular testing Assess/Plan/Problems-Billing Assessment: - Patient Problems (1) Chest pain Current Visit: Yes Status: Acute Code(s): R07.9 - CHEST PAIN, UNSPECIFIED SNOMED Code(s): 62399508 Comment: Atypical, but pt limited in her exercise capacity by advanced COPD. Chemical stress test 02/16. (2) Mediastinal adenopathy Current Visit: Yes Status: Acute Code(s): R59.0 - LOCALIZED ENLARGED LYMPH NODES SNOMED Code(s): 79952381 Comment: Dr. Bran to evaluate this as well as the lung nodule. (3) Hyponatremia Current Visit: Yes Status: Acute Code(s): E87.1 - HYPO-OSMOLALITY AND HYPONATREMIA SNOMED Code(s): 08276221 Comment: Patient does not seem to be a high-volume drinker. I advised her to moderate her fluid intake. Strict I&O's requested. Start demeclocycline, 2 doses 02/15. BMP 02/16. Avoid diuretic for now unless edema is significant ( none at all 02/15). Sister afraid of stopping the NaCl tablets. (4) COPD (chronic obstructive pulmonary disease) Current Visit: No Status: Chronic Code(s): J44.9 - CHRONIC OBSTRUCTIVE PULMONARY DISEASE, UNSPECIFIED SNOMED Code(s): 65221420 Comment: Continue nebulized meds, mometasone/formoterol, prednisone. (5) Atrial fibrillation Current Visit: Yes Status: Acute Code(s): I48.91 - UNSPECIFIED ATRIAL FIBRILLATION SNOMED Code(s): 54445732 Comment: Continue warfarin, diltiazem. INR 02/16. (6) Hypertension Current Visit: No Status: Chronic Code(s): I10 - ESSENTIAL (PRIMARY) HYPERTENSION SNOMED Code(s): 86290311 Comment: Reduce bisoprolol to 10 mg start 02/16.
[2018-02-15] MEDS: Demeclocycline TAB* 150 MG PO SCH ×2 (16:17→20:39)
[2018-02-15] MEDS ORDERED: Acetylcysteine INHALATION SOL* 200 MG/ML NEB.SOLN 10 ML INH PRN (16:19)
[2018-02-15] MEDS: Warfarin TAB(*) 3 MG PO SCH (17:01)
[2018-02-15] MEDS: NS 0.9% 1000 ML* 1,000 ML IV SCH (18:05)
[2018-02-15] MEDS: Albuterol/Ipratropium NEB.SOL* Albuterol 2.5 MG/Ipratropium 0.5 MG 3 ML INH SCH (18:14)
[2018-02-15] MEDS: Sodium Chloride(INHALANT) 3%* 4 ML NEB.SOLN INH SCH ×4 (18:14→23:56)
--- NOTE | 2018-02-15 19:10 | CONS ---
PULMONARY CONSULTATION REPORT: DATE OF CONSULT: 02/15/18 CONSULTATION REQUESTED BY: Dr. Nicole. REASON FOR CONSULT: Evaluation of abnormal CT chest. HISTORY OF PRESENT ILLNESS: The patient is a 77-year-old female with history of bronchiectasis, COPD, known to me from recent outpatient evaluation. The patient was recently admitted to hospital in [place], was treated for pneumonia and acute COPD exacerbation. The patient also was treated for hyponatremia. She is on hydrochlorothiazide that might be causing hyponatremia. SIADH was also considered. The patient has pleural effusion on the left side, had thoracentesis with removal of 1.5 L of dark yellow fluid, cytology showed atypical cells; however, were not enough cells to ascertain the diagnosis. Cells were considered to be of neuroendocrine origin. The patient continued to have significant cough and sputum production and worsening dyspnea on exertion. She was recently started on saline nebulization with improvement in symptoms, has felt her best until past 3 to 4 days when she started having chest pain retrosternally radiating to the back of the throat. The patient attributed symptoms to heartburn. Symptoms were not improving and she was concerned and brought in to the emergency room for further evaluation of chest pain. The patient was seen and examined at bedside today. The patient reports slight improvement in chest discomfort. The patient continues to have significant cough and sputum production. The patient had CT scan of the chest. I have personally reviewed CT scan of the chest images. The patient noted to have significant mediastinal and hilar adenopathy, significantly increased from prior CT from June of last year. The patient also noted to have bronchiectasis bilaterally with mucus plugging. The patient also noted to have spiculated mass in left lung that is hazy and unclear if infectious or inflammatory or neoplastic. The patient is on O2 supplementation at 3 L per minute, which is at her baseline. She did have elevated white count. Does not have significant hypercapnia. Troponins are within normal limits. The patient was started on neb treatments. The patient was also started on GERD therapy. The patient is scheduled to have stress test tomorrow. The patient was also continued on low-dose prednisone. 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 2. AFib. 3. COPD. 4. GERD. 5. Chronic pain. 6. CHF. 7. History of lung abscess, status post wedge resection in 2011. 8. Recent thoracentesis in [place], some atypical cells of neuroendocrine origin were seen. 9. Hypertension. PAST SURGICAL HISTORY: 1. Hip fracture, status post ORIF. 2. Wedge resection. 3. Pacemaker placement. 4. Parathyroid surgery. 5. Cataract extraction. 6. Ablation. MEDICATIONS: 1. Prednisone 10 mg daily. 2. Sodium chloride tablet 1 g b.i.d. 3. [place] 1 to 2 tablets as needed. 4. Demadex 20 mg daily. 5. Diltiazem 360 mg. 6. Aldactone 25 mg. 7. Digoxin 0.125 mg. 8. Warfarin 3 mg. 9. Zebeta 20 mg. 10. Prilosec 20 mg daily. 11. Advair 1 puff b.i.d. 12. Ventolin 1 puff q.6 hours. 13. Combivent 2 puffs four times a day. ALLERGIES: AUGMENTIN and LEVAQUIN. FAMILY HISTORY: Mother with [place]. Father with breast cancer. SOCIAL HISTORY: Former smoker, quit 20 years ago, 3-tkmk-ovc-day smoker prior to that. Does not drink alcohol. REVIEW OF SYSTEMS: All 14 systems reviewed and as per HPI. PHYSICAL EXAM: The patient in bed, in no apparent distress, coughing intermittently during the interview. Vital Signs: Temperature 98.1, heart rate 67 beats per minute, respiratory rate 20 per minute, O2 sat 99% on 3 L, blood pressure 100/50. HEENT: Pupils are equal and reactive to light, mucous membranes moist. Lungs: Diminished air entry bilaterally, crackles in bases. Cardiovascular: S1, S2 present and regular. Abdomen: Soft, nontender, nondistended. Bowel sounds present. Extremities: Normal range of motion. Skin: No rash or bruises. Neuro: No focal deficits. DIAGNOSTIC STUDIES/LAB DATA: WBC count 14.2, hemoglobin 12.3, hematocrit 37, platelet count 351. Sodium 125, potassium 4.1, chloride 87, bicarb 32, BUN 12, creatinine 0.56. Troponins within normal limits. Influenza A and B negative. CT scan of the chest performed on admission was personally reviewed by me - emphysematous changes bilaterally, bronchiectasis bilaterally with inspissated mucus. The patient with significantly enlarged mediastinal and hilar nodes, subcarinal node is significantly enlarged. The patient with small left pleural effusion. The patient also with nonspecific spiculated density in the left lung. IMPRESSION AND RECOMMENDATIONS: 77-year-old female with significant smoking history with history of bronchiectasis with recurrent pneumonias, evidence of hyponatremia, Syndrome of inappropriate secretion of antidiuretic hormone is a possibility with evidence of significant mediastinal and hilar adenopathy and spiculated lung nodule concerning for malignancy, the patient had atypical cells on thoracentesis performed in [place] recently. Given significant mediastinal adenopathy, small cell is in the differential. Syndrome of inappropriate secretion of antidiuretic hormone is also commonly seen in small cell lung cancer. The patient will need bronchoscopy, EBUS for evaluation of lymph nodes. Procedure was discussed in detail with the patient. Associated risks and benefits were thoroughly explained. The patient is agreeable to the procedure. The patient to have a stress test tomorrow for evaluation of chest pain. Management of hyponatremia- strict I's and O's, fluid restriction, diuretic is being held. The patient to be started on demeclocycline for syndrome of inappropriate secretion of antidiuretic hormone. She is currently taking salt tablets. The patient still has significant mucus plugging and thick phlegm. The patient having significant heartburn with saline nebulizations, ordered Mucomyst nebulization. The patient has history of atrial fibrillation, is on diltiazem, digoxin, and Coumadin, rate controlled currently. The patient is high risk for general anesthesia; however, given the mediastinal adenopathy, she will definitively benefit from the procedure. The patient understands the risks associated with her procedure. Will arrange procedure as out patient Thank you for allowing me to participate in the care of your patient. Will follow up with you. [id number]/[facility] #: [id number] ELVIS
[2018-02-15] MEDS: Nystatin SUSPENSION* 100000 UNITS/ML 5 ML UDC PO SCH (20:39)
[2018-02-15] MEDS: guaiFENesin ER TAB 600 MG PO SCH (20:39)
[2018-02-16] MEDS: Sodium Chloride(INHALANT) 3%* 4 ML NEB.SOLN INH SCH ×4 (01:39→18:38)
[2018-02-16] MEDS: Albuterol/Ipratropium NEB.SOL* Albuterol 2.5 MG/Ipratropium 0.5 MG 3 ML INH SCH ×4 (01:40→18:38)
[2018-02-16] MEDS ORDERED: Sodium Chloride(INHALANT) 3%* 4 ML NEB.SOLN INH SCH ×2 (03:09→04:00)
[2018-02-16 06:35] LABS: INR 1.37 (0.77-1.02)
[2018-02-16] MEDS: NS 0.9% 1000 ML* 1,000 ML IV SCH (07:46)
[2018-02-16] MEDS: Mometasone/Formoter 100/5 MDI INH SCH ×3 (08:39→20:35)
[2018-02-16] MEDS: Bisoprolol TAB* 5 MG PO SCH (09:21)
[2018-02-16] MEDS: Demeclocycline TAB* 150 MG PO SCH ×4 (09:31→20:36)
[2018-02-16] MEDS: Diltiazem CD CAP* 180 MG PO SCH (09:31)
[2018-02-16] MEDS: Aspirin 81 mg CHEW TAB* 81 MG TAB.CHEW PO SCH (09:31)
[2018-02-16] MEDS: guaiFENesin ER TAB 600 MG PO SCH ×2 (09:31→20:36)
[2018-02-16] MEDS: Omeprazole CAP* 20 MG PO SCH (09:31)
[2018-02-16] MEDS: predniSONE TAB* 10 MG PO SCH (09:31)
[2018-02-16] MEDS: Digoxin TAB* 0.125 MG PO SCH (09:31)
[2018-02-16] MEDS: Sodium Chloride TAB* 1 GM PO SCH ×2 (09:31→20:36)
[2018-02-16] MEDS: Nystatin SUSPENSION* 100000 UNITS/ML 5 ML UDC PO SCH ×4 (09:32→20:36)
[2018-02-16] MEDS ORDERED: Regadenoson* 0.4 MG/5 ML SYRINGE ONE (11:27)
[2018-02-16] MEDS ORDERED: Aminophylline IV* 25 MG/ML 10 ML VIAL ONE (11:28)
--- NOTE | 2018-02-16 13:48 | ED ---
Chun Pardo Stephanie, scribed for Eduardo Hooper MD on 02/14/18 at 1635 . HPI Chest Pain - HPI Summary HPI Summary: The pt is a 77 y/o F presenting to the ED with c/o chest pain that began on 02/10. The pt states she had epigastric burning last night. Symptoms include productive cough with green sputum. She took Tylenol and was able to sleep a few hours throughout the night. The pt states she received a nebulizer treatment on 02/10/18 and one hour after the treatment she developed CP and heart burn. The pain radiates into her neck and lower jaw. Her CP has been constant since onset. The pt is getting over a recent bout of PNA. Her pain is rated as a 2 in severity. The pain is described as a burning sensation. The pt just finished taking doxycycline. - History of Current Complaint Chief Complaint: EDChestPainROMI Time Seen by Provider: 02/14/18 15:38 Hx Obtained From: Patient Onset/Duration: Started Days Ago - 4, Still Present Timing: Constant Current Severity: Mild Pain Intensity: 2 Pain Scale Used: 0-10 Numeric Chest Pain Location: Diffuse Chest Pain Radiates: Yes Chest Pain Radiates To:: Jaw, Neck Character: Burning Aggravating Factor(s): Deep Breaths Alleviating Factor(s): Nothing Associated Signs and Symptoms: Positive: Productive Cough - Allergy/Home Medications Allergies/Adverse Reactions: Allergies Allergy/AdvReac Type Severity Reaction Status Date / Time amoxicillin Allergy Stomach Verified 02/14/18 16:47 Cramps clavulanic acid Allergy Stomach Verified 02/14/18 16:47 Cramps levofloxacin Allergy GI Upset Verified 02/14/18 16:47 Home Medications: Home Medications Albuterol HFA INHALER* [Ventolin HFA Inhaler*] 1 puff INH Q6H PRN 02/14/18 [ History Confirmed 02/14/18] Albuterol/Ipratropium RESP(NF) [Combivent Respimat(NF)] 2 puff INH QID PRN 02/14 [History Confirmed 02/14/18] Bisoprolol TAB* [Zebeta TAB*] 20 mg PO DAILY 02/14/18 [History Confirmed ] Digoxin TAB* [Lanoxin TAB*] 0.125 mg PO DAILY 02/14/18 [History Confirmed ] Diltiazem CD CAP* [Cardizem CD CAP*] 360 mg PO DAILY 02/14/18 [History Confirmed 02/14/18] Fluticasone-Salmeterol 100-50* [Advair Diskus 100-50*] 1 puff INH BID 02/14/18 [ History Confirmed 02/14/18] HYDROcodone/ACETAMIN 5-325 MG* [[place] 5-325 TAB*] 1 - 2 tab PO DAILY PRN [History Confirmed 02/14/18] Omeprazole CAP* [Prilosec CAP* 20 MG] 20 mg PO DAILY 02/14/18 [History Confirmed 02/14/18] Sodium Chloride TAB* 1 gm PO BID 02/14/18 [History Confirmed 02/14/18] Spironolactone TAB* [Aldactone TAB*] 25 mg PO DAILY 02/14/18 [History Confirmed 02/14/18] Torsemide TAB* [Demadex*] 20 mg PO DAILY 02/14/18 [History Confirmed 02/14/18] Warfarin TAB(*) [Coumadin TAB(*)] 3 mg PO DAILY 02/14/18 [History Confirmed ] predniSONE TAB* [Deltasone TAB*] 10 mg PO DAILY 02/14/18 [History Confirmed ] PMH/Surg Hx/FS Hx/Imm Hx Endocrine/Hematology History: Reports: Other Endocrine/Hematological Disorders - hyperparathyroidism Denies: Hx Diabetes, Hx Systemic Lupus Erythematosus, Hx Anemia Cardiovascular History: Reports: Hx Pacemaker/ICD Denies: Hx Congestive Heart Failure, Hx Hypertension Respiratory History: Reports: Hx Asthma, Hx Chronic Obstructive Pulmonary Disease (COPD) GI History: Denies: Hx Jaundice History: Denies: Hx Renal Disease Musculoskeletal History: Reports: Hx Osteoporosis Denies: Hx Rheumatoid Arthritis Sensory History: Reports: Hx Contacts or Glasses, Hx Hearing Aid Opthamlomology History: Reports: Hx Contacts or Glasses Neurological History: Reports: Hx Headaches, Hx Migraine - Cancer History Hx Chemotherapy: No Hx Radiation Therapy: No - Surgical History Surgery Procedure, Year, and Place: Right lower lobectomy, 01/2002, [facility]. Parathyroidectomy, 07/2002, [facility]. DVT in left arm removed, 2011, [employer] in [place] Infectious Disease History: Denies: Traveled Outside the [place] in Last 30 Days - Family History Known Family History: Negative: Renal Disease - Social History Occupation: Retired Lives: With Family Alcohol Use: Rare Hx Substance Use: No Substance Use Type: Reports: None Hx Tobacco Use: Yes Smoking Status (MU): Former Smoker Review of Systems Negative: Fever, Chills Negative: Erythema Negative: Sore Throat Positive: Chest Pain Positive: Cough. Negative: Shortness Of Breath Negative: Abdominal Pain, Vomiting, Nausea Negative: dysuria, hematuria Negative: Myalgia, Edema Skin: Negative - dizziness Negative: Rash All Other Systems Reviewed And Are Negative: Yes Physical Exam - Summary Physical Exam Summary: Constitutional: Well-developed, Well-nourished, Alert. (-) Distressed Skin: Warm, Dry HENT: Normocephalic; Atraumatic Eyes: Conjunctiva normal Neck: Musculoskeletal ROM normal neck. (-) JVD, (-) Stridor, (-) Tracheal deviation Cardio: Rhythm regular, rate normal, Heart sounds normal; Intact distal pulses; The pedal pulses are 2+ and symmetric. Radial pulses are 2+ and symmetric. (-) Murmur Pulmonary/Chest wall: Effort normal. (-) Respiratory distress, (-) Wheezes, bi- basilar rales Abd: Soft, (-) Tenderness, (-) Distension, (-) Guarding, (-) Rebound Musculoskeletal: (-) Edema Lymph: (-) Cervical adenopathy Neuro: Alert, Oriented x3 Psych: Mood and affect Normal Triage Information Reviewed: Yes Vital Signs On Initial Exam: Initial Vitals Temp Pulse Resp BP Pulse Ox 97.8 F 69 24 136/68 98 02/14/18 16:04 02/14/18 16:04 02/14/18 16:04 02/14/18 16:04 02/14/18 16:04 Vital Signs Reviewed: Yes Diagnostics - Vital Signs Vital Signs Temp Pulse Resp BP Pulse Ox 02/14/18 16:04 97.8 F 69 24 136/68 98 - Laboratory Result Diagrams: 02/14/18 16:28 02/14/18 16:28 Lab Statement: Any lab studies that have been ordered have been reviewed, and results considered in the medical decision making process. - Radiology CXR Xray Interpretation: Positive (See Comments) Radiology Interpretation Completed By: ED Physician - Bi-basilar infiltrates, Radiologist - There may BE early airspace disease in the left lower lobe which may represent pneumonia. Chronic interstitial disease is present with chronic pleural changes. NO ACTIVE CARDIOPULMONARY DISEASE IS NOTED. - EKG 15:25 Cardiac Rate: NL EKG Interpretation: Paced, 80 BPM Re-Evaluation - Re-Evaluation First Eval Re-Evaluation Time: 17:18 Change: Unchanged - No change with nitro. Chest Pain Course/Dx - Course Course Of Treatment: At 17:15, the pt was accepted by Dr. South into the hospital. - Diagnoses Provider Diagnoses: Chest pain, unspecified - Provider Notifications Discussed Care Of Patient With: Lizbeth South Time Discussed With Above Provider: 17:15 Instructed by Provider To: Admit As Inpatient Discharge - Sign-Out/Discharge Documenting (check all that apply): Discharge/Admit/Transfer - Admit - Discharge Plan Condition: Stable Disposition: ADMITTED TO [facility] Referrals: Lizbeth Lorenzo MD [Primary Care Provider] - The documentation as recorded by the Chun teresa Stephanie accurately reflects the service I personally performed and the decisions made by , Eduardo Hooper MD.
--- NOTE | 2018-02-16 14:22 | RAD ---
Indication: Chest pain. Myocardial perfusion scan was performed utilizing 1 day protocol. 10.8 mCi of technetium 99m tetrofosmin was injected for the rest portion of the study. Pharmacological stress was applied and 25.7 mCi of technetium 99m tetrofosmin was injected for the stress portion of the study. There is inferior wall defect which likely corrects on the attenuation correction images. There is no definite fixed or reversible perfusion defect identified. The ejection fraction at stress is 82%. Evaluation of wall motion demonstrates no focal wall motion abnormality. There is a left pleural effusion noted. The transit ischemic dilatation ratio is 1.33. The exact significance of this in a background of normal EKG is unclear. IMPRESSION: Inferior wall defect which appears to correct on the attenuation correction images on both rest and stress images. T.I.D. is 1.33 suggestive of transient ischemic dilatation, although exact clinical significance of this with a normal EKG is unknown. ASSESSMENT: Low risk Based on imaging criteria from ACC/AHA 2002 Guideline Update for the Management of Patients With Chronic Stable Angina Table 23. Noninvasive Risk Stratification.
--- NOTE | 2018-02-16 14:48 | PN ---
Subjective Date of Service: 02/16/18 Interval History: Still some chest/neck discomfort at times. Some dark sputum. Overall feels better. Objective Active Medications: Acetaminophen (Tylenol Tab*) 650 mg PO Q4H PRN PRN Reason: FEVER/PAIN Hydrocodone Bitart/Acetaminophen (Moore 5-325 Tab*) 1 tab PO DAILY PRN PRN Reason: PAIN Last Admin: 02/16/18 13:24 Dose: 1 tab Acetylcysteine (Mucomyst Inhalation Marni*) 400 mg INH [id number] AWAKE PRN PRN Reason: CONGESTION Albuterol (Ventolin Hfa Inhaler*) 1 puff INH Q6H PRN PRN Reason: SOB/WHEEZING Albuterol/Ipratropium (Duoneb (Albuterol 2.5 Mg/Ipratropium 0.5 Mg)) 1 neb INH [id number] AWAKE [facility] Last Admin: 02/16/18 13:20 Dose: 1 neb Aspirin (Aspirin 81 Mg Chew Tab*) 81 mg PO DAILY [facility] Last Admin: 02/16/18 09:31 Dose: 81 mg Bisoprolol Fumarate (Zebeta Tab*) 10 mg PO DAILY [facility] Last Admin: 02/16/18 09:21 Dose: Not Given Demeclocycline HCl (Declomycin Tab*) 300 mg PO TID [facility] Digoxin (Lanoxin Tab*) 0.125 mg PO DAILY [facility] Last Admin: 02/16/18 09:31 Dose: 0.125 mg Diltiazem HCl (Cardizem Cd Cap*) 360 mg PO DAILY [facility] Last Admin: 02/16/18 09:31 Dose: 360 mg Guaifenesin (Mucinex*) 1,200 mg PO BID [facility] Last Admin: 02/16/18 09:31 Dose: 1,200 mg Mometasone Furoate/Formoterol Fumar (Dulera 100/5 Mdi*) 2 puff INH BID [facility] Last Admin: 02/16/18 08:39 Dose: 2 puff Nystatin (Nystatin Suspension*) 200,000 units PO QID [facility] Last Admin: 02/16/18 09:32 Dose: 200,000 units Omeprazole (Prilosec Cap*) 20 mg PO DAILY [facility] Last Admin: 02/16/18 09:31 Dose: 20 mg Ondansetron HCl (Zofran Inj*) 4 mg IV Q6H PRN PRN Reason: NAUSEA Sodium Chloride (Sodium Chloride Tab*) 1 gm PO BID [facility] Last Admin: 02/16/18 09:31 Dose: 1 gm Sodium Chloride (Sodium Chloride(Inhalant) 3%*) 3 ml INH [id number] AWAKE [facility] Last Admin: 02/16/18 13:20 Dose: Not Given Warfarin Sodium (Coumadin Tab(*)) 3 mg PO DAILY@1700 [facility] PRN Reason: Protocol Last Admin: 02/15/18 17:01 Dose: 3 mg Vital Signs - 8 hr 02/16/18 02/16/18 02/16/18 08:00 08:31 09:31 Temperature 98.1 F Pulse Rate 66 88 80 Respiratory 20 Rate Blood Pressure 111/46 (mmHg) O2 Sat by Pulse 100 Oximetry 02/16/18 02/16/18 13:20 13:24 Temperature Pulse Rate 88 Respiratory 18 Rate Blood Pressure (mmHg) O2 Sat by Pulse Oximetry Oxygen Devices in Use Now: Nasal Cannula Appearance: Alert, partly up in bed. In good spirits. Looks comfortable. No cough during my visit. Eyes: No Scleral Icterus Neck: NL Appearance and Movements; NL JVP, No Thyroid Enlargement, Masses Respiratory: Symmetrical Chest Expansion and Respiratory Effort, Clear to Auscultation, - - Mild rhonchi BL, diminished BS BL Cardiovascular: NL Sounds; No Murmurs; No JVD, RRR, No Edema, - Extremities: No Edema, No Clubbing, Cyanosis, - Skin: No Rash or Ulcers, No Nodules or Sclerosis, - Neurological: Alert and Oriented x 3, NL Sensation Result Diagrams: 02/15/18 10:27 02/16/18 05:49 Microbiology and Other Data: Microbiology 02/14/18 20:10 Legionella Urinary Antigen - Final Urine Negative Legionella Antigen Streptococcus pneumoniae Ag Screen - Final Negative S. pneumo Antigen 02/14/18 18:50 Influenza Types A,B Antigen (MILLIE) - Final Nasopharyngeal Specimen received for Influenza A/B Molecular testing Assess/Plan/Problems-Billing Assessment: - Patient Problems (1) Chest pain Current Visit: Yes Status: Acute Code(s): R07.9 - CHEST PAIN, UNSPECIFIED SNOMED Code(s): 22886884 Comment: Atypical, but pt limited in her exercise capacity by advanced COPD. Chemical stress test 02/16 was negativ. D/C tele. (2) Mediastinal adenopathy Current Visit: Yes Status: Acute Code(s): R59.0 - LOCALIZED ENLARGED LYMPH NODES SNOMED Code(s): 64388031 Comment: Dr. Bran will do outpt bronchoscopy to evauate this and the lung nodule. (3) Hyponatremia Current Visit: Yes Status: Acute Code(s): E87.1 - HYPO-OSMOLALITY AND HYPONATREMIA SNOMED Code(s): 93192809 Comment: Patient does not seem to be a high-volume drinker. I advised her to moderate her fluid intake. Strict I&O's requested. Start demeclocycline, 2 doses 02/15. BMP 02/16. Avoid diuretic for now unless edema is significant ( none at all 02/15). Sister afraid of stopping the NaCl tablets. Increase demeclocycline to 300 mg tid (extra 150 mg 02/16 to make 2 doses at 300 mg that day), BMP 02/17, should repeat on 02/20. (4) COPD (chronic obstructive pulmonary disease) Current Visit: No Status: Chronic Code(s): J44.9 - CHRONIC OBSTRUCTIVE PULMONARY DISEASE, UNSPECIFIED SNOMED Code(s): 24272059 Comment: Continue nebulized meds, mometasone/formoterol. Finished prednisone. (5) Atrial fibrillation Current Visit: Yes Status: Acute Code(s): I48.91 - UNSPECIFIED ATRIAL FIBRILLATION SNOMED Code(s): 63226024 Comment: Continue warfarin, diltiazem. INR 02/17. (6) Hypertension Current Visit: No Status: Chronic Code(s): I10 - ESSENTIAL (PRIMARY) HYPERTENSION SNOMED Code(s): 01509889 Comment: Reduce bisoprolol to 10 mg start 02/16.
[2018-02-16] MEDS ORDERED: Demeclocycline TAB* 150 MG PO ONE (15:00)
[2018-02-16] MEDS: Warfarin TAB(*) 3 MG PO SCH (17:20)
--- NOTE | 2018-02-16 18:14 | PN ---
Progress Note - Progress Note Date of Service: 02/16/18 - Pulm f/u note Note: Pt seen and examined at bedside. pt reprots feelign better today. Is able to expectorate phleghm with nebs and mucomyst. had stress test today Active Medications Generic Name Dose Route Start Last Admin Trade Name Freq PRN Reason Stop Dose Admin Acetaminophen 650 mg 02/14/18 18:17 Tylenol Tab* PO Q4H PRN FEVER/PAIN Hydrocodone Bitart/Acetaminophen 1 tab 02/14/18 18:24 02/16/18 13:24 Lawley 5-325 Tab* PO 1 tab DAILY PRN Administration PAIN Acetylcysteine 400 mg 02/15/18 16:19 Mucomyst Inhalation Marni* INH [id number] AWAKE PRN CONGESTION Albuterol 1 puff 02/14/18 18:23 Ventolin Hfa Inhaler* INH Q6H PRN SOB/WHEEZING Albuterol/Ipratropium 1 neb 02/15/18 19:00 02/16/18 13:20 Duoneb (Albuterol 2.5 Mg/Ipratropium 0.5 Mg) INH 1 neb [id number] AWAKE [facility] Administration Aspirin 81 mg 02/15/18 09:00 02/16/18 09:31 Aspirin 81 Mg Chew Tab* PO 81 mg DAILY [facility] Administration Bisoprolol Fumarate 10 mg 02/15/18 15:25 02/16/18 09:21 Zebeta Tab* PO Not Given DAILY [facility] Demeclocycline HCl 300 mg 02/16/18 15:00 02/16/18 14:49 Declomycin Tab* PO 300 mg TID [facility] Administration Digoxin 0.125 mg 02/15/18 09:00 02/16/18 09:31 Lanoxin Tab* PO 0.125 mg DAILY [facility] Administration Diltiazem HCl 360 mg 02/15/18 09:00 02/16/18 09:31 Cardizem Cd Cap* PO 360 mg DAILY [facility] Administration Guaifenesin 1,200 mg 02/15/18 17:43 02/16/18 09:31 Mucinex* PO 1,200 mg BID [facility] Administration Mometasone Furoate/Formoterol Fumar 2 puff 02/14/18 21:00 02/16/18 08:39 Dulera 100/5 Mdi* INH 2 puff BID [facility] Administration Nystatin 200,000 units 02/15/18 21:00 02/16/18 14:51 Nystatin Suspension* PO 200,000 units QID [facility] Administration Omeprazole 20 mg 02/15/18 09:00 02/16/18 09:31 Prilosec Cap* PO 20 mg DAILY [facility] Administration Ondansetron HCl 4 mg 02/14/18 18:17 Zofran Inj* IV Q6H PRN NAUSEA Sodium Chloride 1 gm 02/14/18 21:00 02/16/18 09:31 Sodium Chloride Tab* PO 1 gm BID [facility] Administration Sodium Chloride 3 ml 02/16/18 07:00 02/16/18 13:20 Sodium Chloride(Inhalant) 3%* INH Not Given [id number] AWAKE [facility] Warfarin Sodium 3 mg 02/15/18 17:00 02/16/18 17:20 Coumadin Tab(*) PO 3 mg DAILY@1700 [facility] Administration Protocol Vital Signs Temp Pulse Resp BP Pulse Ox 97.3 F 68 20 110/51 100 02/16/18 15:59 02/16/18 15:59 02/16/18 16:08 02/16/18 15:59 02/16/18 15:59 O/E: Pt in NAD, thin female HEENT: PERRLA, No JVD Lungs: Diminished air entry b/l, scaterred wheeze+ CVS: S1, S2+, regular Abd: Soft, BS+, NT Ext: Normal ROM Skin: No rash or bruise Neuro: No focal defecits Laboratory Results - last 24 hr 02/16/18 02/16/18 05:49 05:49 INR (Anticoag Therapy) 1.37 H Sodium 122 L Potassium 3.6 Chloride 89 L Carbon Dioxide 27 Anion Gap 6 BUN 12 Creatinine 0.39 L Est GFR ( Amer) 204.4 Est GFR (Non-Af Amer) 159.0 BUN/Creatinine Ratio 30.8 H Glucose 94 Calcium 8.4 L I/R: 77 y o f former smoker with signficant smoking history with h/o COPD, recent PNA, pl effusion s/p thoracentesis, few atypical cells noted, who was a/ f evaluation of chest pain and tightness CT chest showed worsening mediastinal and hilar adenopathy, spiculated left lung density, bronchiectasis, mucus plugging and emphysematous changes Pt was started on mucomyst, hypersal nebs with mobilization of mucus She has been compliant with flutter usage Stress test didnot show concern for ischemia Overall feeling better today Scheduled for bronchoscopy/EBUS 03/01 @1 pm Procedure and associated complications were reviewed Pt to hold coumadin 3 days prior to procedure Pt to be d/norma home tomorrow
[2018-02-17] MEDS: Sodium Chloride(INHALANT) 3%* 4 ML NEB.SOLN INH SCH ×3 (01:43→12:49)
[2018-02-17] MEDS: Albuterol/Ipratropium NEB.SOL* Albuterol 2.5 MG/Ipratropium 0.5 MG 3 ML INH SCH ×3 (01:43→13:01)
[2018-02-17] MEDS: Mometasone/Formoter 100/5 MDI INH SCH ×2 (06:10→07:16)
[2018-02-17 06:34] LABS: INR 1.7 (0.77-1.02)
[2018-02-17 06:40] LABS: EGFR Non-African American 134.8 (>60)
[2018-02-17] MEDS: Demeclocycline TAB* 150 MG PO SCH (08:41)
[2018-02-17] MEDS: guaiFENesin ER TAB 600 MG PO SCH (08:42)
[2018-02-17] MEDS: Sodium Chloride TAB* 1 GM PO SCH (08:42)
[2018-02-17] MEDS: Omeprazole CAP* 20 MG PO SCH (08:42)
[2018-02-17] MEDS: Bisoprolol TAB* 5 MG PO SCH (08:43)
[2018-02-17] MEDS: Diltiazem CD CAP* 180 MG PO SCH (08:43)
[2018-02-17] MEDS: Nystatin SUSPENSION* 100000 UNITS/ML 5 ML UDC PO SCH (08:44)
[2018-02-17] MEDS: Digoxin TAB* 0.125 MG PO SCH (08:44)
[2018-02-17] MEDS: Aspirin 81 mg CHEW TAB* 81 MG TAB.CHEW PO SCH (08:46)
[2018-02-17 12:45] VITALS: BP 104/56
== END 2018-02-17 14:06 | disposition home or self-care (01) | DRG 313 ==
LOC: ED 15:25 → MEDTELE 17:42 → OBSVTOIN 02-16 16:49
PROVIDERS: ADMIT Internal Medicine; ATTEND Internal Medicine
DX: R07.89 Other chest pain (principal); E22.2 Syndrome of inappropriate secretion of antidiuretic hormone; J44.9 Chronic obstructive pulmonary disease, unspecified; M81.0 Age-related osteoporosis without current pathological fracture; G43.909 Migraine, unspecified, not intractable, without status migrainosus; K21.9 Gastro-esophageal reflux disease without esophagitis; G89.29 Other chronic pain; D72.829 Elevated white blood cell count, unspecified; I11.0 Hypertensive heart disease with heart failure; I48.91 Unspecified atrial fibrillation; I50.9 Heart failure, unspecified; J47.9 Bronchiectasis, uncomplicated; T17.990A Other foreign object in respiratory tract, part unspecified in causing asphyxiation, initial encounter; R59.0 Localized enlarged lymph nodes; E89.2 Postprocedural hypoparathyroidism; R91.1 Solitary pulmonary nodule; Z88.1 Allergy status to other antibiotic agents; Z97.4 Presence of external hearing-aid; Z84.1 Family history of disorders of kidney and ureter; Z87.891 Personal history of nicotine dependence; Z82.49 Family history of ischemic heart disease and other diseases of the circulatory system; Z72.89 Other problems related to lifestyle; Z86.718 Personal history of other venous thrombosis and embolism; Z98.49 Cataract extraction status, unspecified eye; Z95.0 Presence of cardiac pacemaker; Z80.3 Family history of malignant neoplasm of breast; Z99.81 Dependence on supplemental oxygen
CPT/HCPCS: 36415; 71045; 71275; 78452; 80048; 80053; 80061; 80162; 82164; 82533; 83036; 83605; 83930; 83935; 84300; 84443; 84484; 85025; 85610; 85730; 87040; 87502; 87899; 93005; 93017; 94640; 94760; 99284; A9270-GY; A9502; G0378; J0280; J2785; J7512; Q9967

== ENCOUNTER 2018-02-22 12:52 | Inpatient (IN) | payer MEDICARE, BC ==
[2018-02-22] MEDS ORDERED: Furosemide IV* 10 MG/ML 10 ML VIAL (100 MG) IV ONE (13:26)
[2018-02-22] MEDS ORDERED: Diltiazem DRIP* 100 MG/100 ML ADDV.BAG IVPB ONE (13:26)
[2018-02-22] MEDS ORDERED: Diltiazem IV* 5 MG/ML 5 ML VIAL (for loading dose/IV Push) (25 MG) IV SLOW PU ONE (13:26)
[2018-02-22 13:59] LABS: INR 2.22 (0.77-1.02)
[2018-02-22 14:03] LABS: ABS Basophils 0.1 10^3/ul (0-0.2); ABS Eosinophils 0.1 10^3/ul (0-0.6); ABS Lymphocytes 0.9 10^3/ul (1.0-4.8); ABS Monocytes 1.2 10^3/ul (0-0.8); ABS Neutrophils 9.6 10^3/ul (1.5-7.7); ABS Nucleated RBC 0 10^3/ul; Eosinophil % 0.6 % (0-6); Hematocrit 37 % (35-47); Hemoglobin 12.2 g/dl (12.0-16.0); Lymphocyte % 7.9 % (25-47); Mean Corpuscular HGB Conc 33 g/dl (31-36); Mean Corpuscular Hemoglobin 30 pg (27-31); Mean Corpuscular Volume 90 fL (80-97); Mean Platelet Volume 7.5 um3 (7.4-10.4); Nucleated Red Blood Cells % 0; Platelet Count 424 10^3/ul (150-450); Red Blood Count 4.08 10^6/ul (4.0-5.4); Red Cell Distribution Width 16 % (10.5-15); White Blood Count 11.8 10^3/ul (3.5-10.8)
--- NOTE | 2018-02-22 14:03 | RAD ---
HISTORY: Shortness of breath COMPARISONS: February 14, 2013 VIEWS: 4: Frontal dual-energy and lateral views of the chest. FINDINGS: CARDIOMEDIASTINAL SILHOUETTE: The cardiomediastinal silhouette is normal. MELISSA: The melissa are normal. PLEURA: There are small bilateral pleural effusions. LUNG PARENCHYMA: There is hyperinflation with flattening of the diaphragm and expansion of the AP diameter of the chest. There are subpleural fibrotic changes. ABDOMEN: The upper abdomen is clear. There is no subphrenic gas. BONES AND SOFT TISSUES: There is diffuse osteopenia. Degenerative changes are noted. OTHER: A left-sided pacemaker is noted. IMPRESSION: 1. COPD WITH ASSOCIATED FIBROTIC CHANGES. 2. SMALL BILATERAL PLEURAL EFFUSIONS.
[2018-02-22 14:11] LABS: EGFR Non-African American 93.1 (>60)
[2018-02-22] MEDS ORDERED: predniSONE TAB* 20 MG PO ONE (14:32)
[2018-02-22] MEDS ORDERED: Azithromycin IV(*) 500 MG in NS 0.9% 250 ML* 250 ML IVPB ONE (14:34)
[2018-02-22] MEDS ORDERED: Albuterol/Ipratropium NEB.SOL* Albuterol 2.5 MG/Ipratropium 0.5 MG 3 ML INH PRN (16:25)
[2018-02-22] MEDS ORDERED: Magnesium Sulfate IV* 3 GM in NS 0.9% 100 ML* 100 ML IVPB ONE (16:51)
[2018-02-22] MEDS ORDERED: NS 0.9% 100 ML* 100 ML ONE (17:23)
--- NOTE | 2018-02-22 18:25 | ED ---
Ramon Pardo Angela, scribed for Judson Acosta MD on 02/22/18 at 1331 . Shortness of Breath - HPI Summary HPI Summary: This pt is a 77 y/o female presenting [place] [facility] c/o SOB and weight gain for one week now. She additionally describes productive cough with mucous-y sputum. Pt reports she was admitted to [facility] last Tuesday (02/14/18) and was taken off Lasix due to hyponatremia. She states she went to her PCP's office (Dr. Lorenzo) and noticed she had gained weight, from 128 lbs to 145 lbs, in a couple of days. She reports her PCP prescribed 2 days of Lasix. Today she denies chest pain. Pt states her oxygen is usually 94-95% on 3 L of O2 at home. Today pt presented to the ED saturating at 86% on 3 L of O2. She had a stress test last week, which resulted normal. Pt is a former smoker. PMHx includes atrial fibrillation, COPD, lymph nodes in lungs. Pt is currently on Digoxin. Allergies to Augmentin and Levaquin. - History of Current Complaint Chief Complaint: EDShortnessOfBreath Time Seen by Provider: 02/22/18 13:14 Hx Obtained From: Patient Onset/Duration: Lasting Days, Still Present Timing: Constant Current Severity: Moderate Dyspnea At: Rest Aggrevating Factors: Nothing Alleviating Factors: Other - more oxygen Associated Signs & Symptoms: Cough (Productive), Edema - Allergy/Home Medications Allergies/Adverse Reactions: Allergies Allergy/AdvReac Type Severity Reaction Status Date / Time amoxicillin Allergy Stomach Verified 02/14/18 16:47 Cramps clavulanic acid Allergy Stomach Verified 02/14/18 16:47 Cramps levofloxacin Allergy GI Upset Verified 02/14/18 16:47 PMH/Surg Hx/FS Hx/Imm Hx Endocrine/Hematology History: Reports: Other Endocrine/Hematological Disorders - hyperparathyroidism Denies: Hx Diabetes, Hx Systemic Lupus Erythematosus, Hx Anemia Cardiovascular History: Reports: Hx Angina, Hx Pacemaker/ICD Denies: Hx Congestive Heart Failure, Hx Hypertension Respiratory History: Reports: Hx Asthma, Hx Chronic Obstructive Pulmonary Disease (COPD) GI History: Denies: Hx Jaundice History: Denies: Hx Renal Disease Musculoskeletal History: Reports: Hx Osteoporosis Denies: Hx Rheumatoid Arthritis Sensory History: Reports: Hx Contacts or Glasses, Hx Hearing Aid Opthamlomology History: Reports: Hx Contacts or Glasses Neurological History: Reports: Hx Headaches, Hx Migraine - Cancer History Hx Chemotherapy: No Hx Radiation Therapy: No - Surgical History Surgery Procedure, Year, and Place: Right [place], [place], [facility], 07/2002, [facility] DVT in left arm removed, 2011, [facility] [place] Infectious Disease History: No Infectious Disease History: Denies: Traveled Outside the [place] in Last 30 Days - Family History Known Family History: Negative: Renal Disease - Social History Alcohol Use: Rare Hx Substance Use: No Substance Use Type: Reports: None Hx Tobacco Use: Yes Smoking Status (MU): Former Smoker Review of Systems Constitutional: Other - weight gain Negative: Fever Negative: Chest Pain Positive: Shortness Of Breath, Cough Positive: Edema Skin: Negative Neurological: Negative All Other Systems Reviewed And Are Negative: Yes Physical Exam - Summary Physical Exam Summary: Appearance: Well appearing, no pain distress Skin: warm, dry, reflects adequate perfusion Head/face: normal Eyes: EOMI, JAYLON ENT: tacky mucous membranes Neck: supple, non-tender. No JVD. Respiratory: a little diminished at the bases. Cardiovascular: Irregularly irregular and tachycardic, pulses symmetrical Abdomen: non-tender, soft Bowel: present Musculoskeletal: strength/ROM intact. 2+ lower extremity pitting edema bilaterally. Neuro: normal, sensory motor intact, A&Ox3 Triage Information Reviewed: Yes Vital Signs On Initial Exam: Initial Vitals Temp Pulse Resp BP Pulse Ox 98.1 F 105 18 117/49 84 02/22/18 13:00 02/22/18 13:00 02/22/18 13:00 02/22/18 13:00 02/22/18 13:00 Vital Signs Reviewed: Yes Diagnostics - Vital Signs Vital Signs Temp Pulse Resp BP Pulse Ox 02/22/18 13:20 89 26 99 02/22/18 13:00 98.1 F 105 18 117/49 84 - Laboratory Lab Results: Lab Results 02/22/18 02/22/18 02/22/18 Range/Units 13:36 13:36 13:36 WBC 11.8 H (3.5-10.8) 10^3/ul RBC 4.08 (4.0-5.4) 10^6/ul Hgb 12.2 (12.0-16.0) g/dl Hct 37 (35-47) % MCV 90 (80-97) fL MCH 30 (27-31) pg MCHC 33 (31-36) g/dl RDW 16 H (10.5-15) % Plt Count 424 (150-450) 10^3/ul MPV 7.5 (7.4-10.4) um3 Neut % (Auto) 80.9 (38-83) % Lymph % (Auto) 7.9 L (25-47) % Ogle % (Auto) 10.1 H (0-7) % Eos % (Auto) 0.6 (0-6) % Baso % (Auto) 0.5 (0-2) % Absolute Neuts (auto) 9.6 H (1.5-7.7) 10^3/ul Absolute Lymphs (auto) 0.9 L (1.0-4.8) 10^3/ul Absolute Monos (auto) 1.2 H (0-0.8) 10^3/ul Absolute Eos (auto) 0.1 (0-0.6) 10^3/ul Absolute Basos (auto) 0.1 (0-0.2) 10^3/ul Absolute Nucleated RBC 0 10^3/ul Nucleated RBC % 0 INR (Anticoag Therapy) 2.22 H (0.77-1.02) Sodium 132 L (139-145) mmol/L Potassium 3.7 (3.5-5.0) mmol/L Chloride 91 L (101-111) mmol/L Carbon Dioxide 32 (22-32) mmol/L Anion Gap 9 (2-11) mmol/L BUN 10 (6-24) mg/dL Creatinine 0.62 (0.51-0.95) mg/dL Est GFR ( Amer) 119.7 (>60) Est GFR (Non-Af Amer) 93.1 (>60) BUN/Creatinine Ratio 16.1 (8-20) Glucose 111 H (70-100) mg/dL Lactic Acid (0.5-2.0) mmol/L Calcium 9.1 (8.6-10.3) mg/dL Magnesium 1.5 L (1.9-2.7) mg/dL Total Bilirubin 0.40 (0.2-1.0) mg/dL AST 22 (13-39) U/L ALT 14 (7-52) U/L Alkaline Phosphatase 50 (34-104) U/L Troponin I 0.00 (<0.04) ng/mL B-Natriuretic Peptide ( - 100) pg/mL Total Protein 7.1 (6.4-8.9) g/dL Albumin 3.1 L (3.2-5.2) g/dL Globulin 4.0 (2-4) g/dL Albumin/Globulin Ratio 0.8 L (1-3) TSH 0.42 (0.34-5.60) mcIU/mL Digoxin 0.9 (0.8-2.0) ng/ml 02/22/18 02/22/18 Range/Units 13:36 13:36 WBC (3.5-10.8) 10^3/ul RBC (4.0-5.4) 10^6/ul Hgb (12.0-16.0) g/dl Hct (35-47) % MCV (80-97) fL MCH (27-31) pg MCHC (31-36) g/dl RDW (10.5-15) % Plt Count (150-450) 10^3/ul MPV (7.4-10.4) um3 Neut % (Auto) (38-83) % Lymph % (Auto) (25-47) % Ogle % (Auto) (0-7) % Eos % (Auto) (0-6) % Baso % (Auto) (0-2) % Absolute Neuts (auto) (1.5-7.7) 10^3/ul Absolute Lymphs (auto) (1.0-4.8) 10^3/ul Absolute Monos (auto) (0-0.8) 10^3/ul Absolute Eos (auto) (0-0.6) 10^3/ul Absolute Basos (auto) (0-0.2) 10^3/ul Absolute Nucleated RBC 10^3/ul Nucleated RBC % INR (Anticoag Therapy) (0.77-1.02) Sodium (139-145) mmol/L Potassium (3.5-5.0) mmol/L Chloride (101-111) mmol/L Carbon Dioxide (22-32) mmol/L Anion Gap (2-11) mmol/L BUN (6-24) mg/dL Creatinine (0.51-0.95) mg/dL Est GFR ( Amer) (>60) Est GFR (Non-Af Amer) (>60) BUN/Creatinine Ratio (8-20) Glucose (70-100) mg/dL Lactic Acid 1.5 (0.5-2.0) mmol/L Calcium (8.6-10.3) mg/dL Magnesium (1.9-2.7) mg/dL Total Bilirubin (0.2-1.0) mg/dL AST (13-39) U/L ALT (7-52) U/L Alkaline Phosphatase (34-104) U/L Troponin I (<0.04) ng/mL B-Natriuretic Peptide 153 H ( - 100) pg/mL Total Protein (6.4-8.9) g/dL Albumin (3.2-5.2) g/dL Globulin (2-4) g/dL Albumin/Globulin Ratio (1-3) TSH (0.34-5.60) mcIU/mL Digoxin (0.8-2.0) ng/ml Result Diagrams: 02/22/18 13:36 02/22/18 13:36 Lab Statement: Any lab studies that have been ordered have been reviewed, and results considered in the medical decision making process. - Radiology Chest XR Xray Interpretation: Positive (See Comments) - IMPRESSION: 1. COPD with associated fibrotic changes. 2. Small bilateral pleural effusions. Dr. Acosta has reviewed this radiology report. Radiology Interpretation Completed By: Radiologist - EKG 13:31 Cardiac Rate: NL - at 95 bpm EKG Rhythm: Atrial Fibrillation ST Segment: Non-Specific EKG Interpretation: Right bundle branch block. Left axis. Course/Dx - Course Course Of Treatment: Patient with history of COPD and CHF with some exacerbation of her breathing status. She is also found to be in rapid atrial fibrillation. This was controlled with some diltiazem. I withheld further breathing treatments given her rapid atrial fibrillation but did load her on steroids. He also has some CHF which will require gentle diuresis. There are small pleural effusion seen on x-ray. I discussed this case with the hospitalist who have evaluated her at the bedside and admitted her. - Diagnoses Differential Diagnosis/HQI/PQRI: Positive: Asthma, Bronchitis, CHF, Pneumonia, Pulmonary Embolism, Pulmonary Edema Provider Diagnoses: Rapid atrial fibrillation, COPD exacerbation, CHF (congestive heart failure) - Physician Notifications Discussed Care of Patient With: Darrian Looney Time Discussed With Above Provider: 14:32 Instructed by Provider To: Other - I discussed pt care with Dr. Looney, hospitalist, who has agreed to admit the pt. - Critical Care Time Critical Care Time: 30-74 min - 30 minutes - CCT is EXCLUSIVE of separately billable procedures Discharge - Sign-Out/Discharge Documenting (check all that apply): Discharge/Admit/Transfer - [place] [facility] [place] Discharge Plan Condition: Fair Disposition: ADMITTED TO [facility] - Billing Disposition and Condition Condition: FAIR Disposition: [facility] The documentation as recorded by the Ramon teresa Angela accurately reflects the service I personally performed and the decisions made by Dave nick Kirk, MD.
[2018-02-22] MEDS: Demeclocycline TAB* 150 MG PO SCH ×2 (18:41→21:01)
[2018-02-22] MEDS: predniSONE TAB* 10 MG PO SCH (18:42)
[2018-02-22] MEDS: Warfarin TAB(*) 3 MG PO SCH (18:42)
[2018-02-22] MEDS: Diltiazem TAB* 60 MG PO SCH ×2 (18:42→23:22)
[2018-02-22] MEDS: Digoxin TAB* 0.125 MG PO SCH (18:42)
[2018-02-22] MEDS: Bisoprolol TAB* 5 MG PO SCH (18:43)
[2018-02-22] MEDS: Sodium Chloride TAB* 1 GM PO SCH (21:00)
[2018-02-22] MEDS: Furosemide IV* 10 MG/ML 10 ML VIAL (100 MG) IV SCH (21:06)
[2018-02-22] MEDS: Mometasone/Formoter 100/5 MDI INH SCH (21:28)
--- NOTE | 2018-02-22 22:20 | HP ---
HISTORY AND PHYSICAL: DATE OF ADMISSION: 02/22/18 ADMITTING PROVIDER: Darrina Looney MD PRIMARY CARE PROVIDER: Dr. Lizbeth Doshi. OUTPATIENT MAIL PROCESSING EQUIPMENT MECHANIC: Dr. Bran. OUTPATIENT COMPUTER SUPPORT SPECIALIST: Dr. Ugalde. CHIEF COMPLAINT: Increasing edema, shortness of breath, sent in by PCP. 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 Bran, 03/01/18; hypertension; recent thoracentesis of 2 L back in November after hip fracture in October. She was recently admitted to [facility] with chest discomfort on 02/14/18 where this mediastinal lymphadenopathy was discovered on chest x-ray along with a spiculated nodule. She had a stress test with EF of 82%, low-risk study. Her sodium levels at that time were 123 and she was started on demeclocycline then and also her torsemide 20 mg was held and not continued on discharge. She presents now with rapid increase in weight and swelling and progressive shortness of breath. She attests she weighed 128 pounds on 02/14/18 and then 145 pounds at PCP's office on 02/20/18. Dr. Doshi referred her for IV diuretic therapy for acute CHF exacerbation. She has also been noted to be in atrial fibrillation in the emergency room, got some diltiazem IV. She attests she has missed all her medications that she usually takes in the morning. Her BNP was elevated at 153. Her chest x-ray shows COPD and small bilateral pleural effusions. She has heart rates in the low 100s, preserved blood pressures. She is satting 97% on 3 L. She is afebrile. Discharge summary is not found from previous hospitalization. History inferred from progress, consultation notes, and patient history. PAST MEDICAL HISTORY: Atrial thrombus; AFib, on Coumadin; COPD, severe; chronic hypoxic respiratory failure, 3 L; GERD; chronic pain; CHF; lung abscess; recent thoracentesis for pleural effusion, 2 L in November; hypertension; recent hip fracture in October. PAST SURGICAL HISTORY: Hip fracture, status post ORIF; wedge resection in the lung; pacemaker placement; parathyroid surgery; cataract extraction; AFib ablation, which worked for about a year before returning in October 2017 with the hip fracture. MEDICATIONS: Current medications include: 1. Bisoprolol 20 mg p.o. daily. 2. Demeclocycline 300 mg p.o. t.i.d. 3. Advair 1 puff inhaled b.i.d. 4. Diltiazem 360 mg p.o. daily. 5. Digoxin 0.125 mg p.o. daily. 6. Sodium chloride tabs 1 g p.o. b.i.d. 7. Omeprazole 20 mg p.o. daily. 8. [place] 5/325 one to two tabs p.o. daily p.r.n. 9. Prednisone 10 mg daily. 10. Guaifenesin 600 mg p.o. b.i.d. 11. Warfarin 3 mg p.o. daily. 12. Combivent 2 puffs inhaled four times a day p.r.n. 13. Albuterol HFA 1 puff inhaled q.6 hours p.r.n. ALLERGIES: Include AUGMENTIN and LEVAQUIN, which gave GI upset and cramps. FAMILY HISTORY: Mother of bad heart at age 93. Father had bone cancer at age 77. SOCIAL HISTORY: The patient is a former heavy smoker up to 3 packs a day, quit 21 years ago. 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 She desires to be full code. Her medical surrogate is son, Geo Somers. REVIEW OF SYSTEMS: Complete 14-point review of systems is negative, except as per HPI. She denies any chest pain or pressure, abdominal pain, attests to markedly increased swelling in her legs. PHYSICAL EXAMINATION GENERAL APPEARANCE: No acute distress, sitting in hospital bed. Slightly cachectic looking, BMI 20. VITAL SIGNS: Heart rate 105, temperature 98.1, respiratory rate between 19 and 31, blood pressure 113/68, satting between 82% and 97%. HEENT: Normocephalic, atraumatic. Pupils are equal, round, and reactive to light. No scleral icterus. NECK: Supple. No cervical lymphadenopathy. PULMONARY: Rales at bilateral bases. No wheezing or rhonchi. CARDIOVASCULAR: Irregularly irregular. No murmurs, rubs, or gallops. ABDOMEN: Soft, nontender, nondistended. EXTREMITIES: 2 to 3+ pitting edema in bilateral lower extremities. NEURO: Cranial nerves II through XII intact. Moving all extremities. Sensation intact. SKIN: No lesions, no rashes. LABORATORY DATA: White count 11.8, hemoglobin 12.2, hematocrit 37, platelets 424. Sodium 132, potassium 3.7, chloride 91, carbon dioxide 32, BUN 10, creatinine 0.62, glucose 111, lactic acid 1.50. AST 22, ALT 14, alk phos 50. Troponin 0.00. BNP 153. Albumin 4.0. Digoxin 0.9. TSH 0.42. Magnesium added on, pending. ASSESSMENT AND PLAN: Kathi Magana is a 77-year-old female with a past medical history of congestive heart failure; hyponatremia; severe chronic obstructive pulmonary disease with chronic hypoxic respiratory failure, 3 L, presenting with a 17-pound weight gain while off her diuretics of torsemide 20, elevated BNP, concern for acute congestive heart failure. She is status post 40 IV Lasix in the emergency room and continues to take IV q.8 hours. Adding a magnesium level. We can start her diltiazem at 60 q.6 hours and continue her bisoprolol. Blood pressures are preserved. Continue her inhalers with formulary substitute. Continue warfarin for her atrial fibrillation. INR is within therapeutic range. Will repeat echocardiogram; last in our system was 2010. She thinks her last with Dr. Jonel Ugalde was about a year and a half ago. Overall, there is some concern about malignancy given her spiculated nodule and increased mediastinal lymphadenopathy. She is scheduled for outpatient bronchoscopy on 03/01/[address] Bran. She is a full code. Medical surrogate is Geo Somers. She can eat a heart-healthy diet. She is going to be admitted to inpatient status. [id number]/[facility] #: [id number] [facility]
[2018-02-23] MEDS: Furosemide IV* 10 MG/ML 10 ML VIAL (100 MG) IV SCH ×3 (05:15→18:14)
[2018-02-23] MEDS: Diltiazem TAB* 60 MG PO SCH ×3 (05:15→18:14)
[2018-02-23 05:46] LABS: EGFR Non-African American 93.1 (>60)
[2018-02-23] MEDS: Mometasone/Formoter 100/5 MDI INH SCH ×2 (08:32→22:01)
[2018-02-23] MEDS: Demeclocycline TAB* 150 MG PO SCH ×3 (08:50→20:19)
[2018-02-23] MEDS: Digoxin TAB* 0.125 MG PO SCH (08:51)
[2018-02-23] MEDS: guaiFENesin ER TAB 600 MG PO SCH ×2 (08:51→20:19)
[2018-02-23] MEDS: Sodium Chloride TAB* 1 GM PO SCH ×2 (08:52→20:19)
[2018-02-23] MEDS: Bisoprolol TAB* 5 MG PO SCH ×2 (08:52→09:02)
[2018-02-23] MEDS: predniSONE TAB* 10 MG PO SCH (08:52)
[2018-02-23] MEDS: Omeprazole CAP* 20 MG PO SCH (08:52)
[2018-02-23] MEDS ORDERED: Benzonatate CAP* 100 MG PO PRN (11:56)
--- NOTE | 2018-02-23 12:05 | ECHO ---
Patient: RUBIO BAI [facility] Rec#: [id number] : 1940 Date: 02/23/2018 Age: 77y Height: 170.18 cm / 67.0 in Weight: 58.97 kg / 130.0 lbs Sex: F BSA: 1.68 Room#: 432 Admit Date#: 02/22/2018 Type: Inpatient Referring: Darrian Looney Reading: Malik Hughes DO Sales Clerk: Lucila Dutta RDCS,RDMS CC: Lizbeth Lorenzo MD Transthoracic Echocardiogram Indication: CHF BP: 115/53 HR: 52 Rhythm: A-Fib Findings History: COPD, asthma, CHF, lung abcess, HTN, AFIB Technical Comments: The study quality is fair. The study is technically limited due to the patient's history of COPD. Left Ventricle: The left ventricular chamber size is normal. There is no left ventricular hypertrophy. Global left ventricular wall motion and contractility are within normal limits. There is normal left ventricular systolic function. The estimated ejection fraction is 60-65%. The assessment of diastolic function is non-diagnostic. Left Atrium: The left atrial chamber size is normal. Right Ventricle: The right ventricular chamber size and systolic function are within normal limits. A pacemaker wire is visualized in the right ventricle. Right Atrium: The right atrial cavity size is normal. A pacemaker wire is visualized in the right atrium. Aortic Valve: The aortic valve is trileaflet. The aortic valve leaflets are mildly thickened. There is aortic annular calcification. There is mild aortic regurgitation. There is no evidence of aortic stenosis. Mitral Valve: Mild mitral annular calcification present. Mild mitral leaflet calcification is visualized. There is mild mitral regurgitation. There is no evidence of mitral stenosis. Tricuspid Valve: The tricuspid valve leaflets are normal. There is trace to mild tricuspid regurgitation. There is evidence of mild pulmonary hypertension. Pulmonic Valve: The pulmonic valve appears normal. There is mild pulmonic regurgitation. Pericardium: There is no significant pericardial effusion. Aorta: The aortic root appears normal. There is no dilatation of the aortic arch. Pulmonary Artery: The main pulmonary artery is not well visualized. Venous: The inferior vena cava appears normal in size. There is less than 50% respiratory change in the inferior vena cava dimension. Conclusions Patient is in atrial fibrillation at time of study. The left ventricular chamber size is normal. There is no left ventricular hypertrophy. Global left ventricular wall motion and contractility are within normal limits. There is normal left ventricular systolic function. The estimated ejection fraction is 60-65%. The left atrial chamber size is normal. A pacemaker wire is visualized in the right ventricle. There is evidence of mild pulmonary hypertension. The right ventricular chamber size and systolic function are within normal limits. Degenerative changes to the mitral valve with no more than mild valvular disease noted. Compared to prior study from 05/2017, no clinically significant changes noted. PASP not previously estimated. Measurements Name Value Normal Range RVIDd (AP) 2D 1 cm (0.9 - 2.6) RVDdMajor (2D) 2.2 cm (2.2 - 4.4) RAd ISD 4CH 4.1 cm (3.4 - 4.9) RA (A4C)W 3.2 cm (2.9 - 4.6) IVSd (2D) 1 cm (0.6 - 1) LVPWd (2D) 1 cm (0.6 - 1) LVIDd (2D) 4.4 cm (3.6 - 5.4) LVIDs (2D) 2.9 cm - LV FS (2D) 34 % (25 - 45) Aortic Annulus 2.3 cm (1.4 - 2.6) Ao root diameter (2D) 3.1 cm (2.1 - 3.5) Ascending Ao 3.4 cm (2.1 - 3.4) Aortic arch 2.6 cm (1.8 - 3.4) LA dimension (AP) 2D 3.7 cm (2.3 - 3.8) LAd ISD 4CH 4.6 cm (2.9 - 5.3) LA ISD 4CH W 3.6 cm (2.5 - 4.5) Name Value Normal Range LA ESV SP 4CH (A/L) 33.43 ml - LA ESV SP 4CH (MOD) 31.74 ml - Name Value Normal Range MV E-wave Vmax 1 m/sec - MV deceleration time 181 msec - LV lateral e' Vmax 0.08 m/sec - LV E:e' lateral ratio 12 ratio - Name Value Normal Range AV Vmax 1.4 m/sec - AV peak gradient 8 mmHg - LVOT Vmax 0.8 m/sec - LVOT peak gradient 2.6 mmHg - Name Value Normal Range MV Vmax 1.1 m/sec - MV VTI 22 cm - MV peak gradient 5 mmHg - MV mean gradient 2.1 mmHg - MV PHT 82 msec - MVA (PHT) 2.7 cm2 - Name Value Normal Range TR Vmax 2.7 m/sec - TR peak gradient 29 mmHg - RAP 8 mmHg - RVSP 37 mmHg - IVC diameter 1.9 cm - Name Value Normal Range PV Vmax 1.1 m/sec - PV peak gradient 5 mmHg -
--- NOTE | 2018-02-23 14:31 | PN ---
Subjective Date of Service: 02/23/18 Interval History: Breathing easier diuresing well weight down 58.6 ->56.5 coughing fit, clear sputum HRs controlled. ECHO done. Objective Active Medications: Albuterol/Ipratropium (Duoneb (Albuterol 2.5 Mg/Ipratropium 0.5 Mg)) 1 neb INH Q4H PRN PRN Reason: SOB/WHEEZING Benzonatate (Tessalon Cap*) 100 mg PO BID PRN PRN Reason: COUGH Last Admin: 02/23/18 12:28 Dose: 100 mg Bisoprolol Fumarate (Zebeta Tab*) 20 mg PO DAILY [facility] Last Admin: 02/23/18 09:02 Dose: Not Given Demeclocycline HCl (Declomycin Tab*) 300 mg PO TID [facility] Last Admin: 02/23/18 08:50 Dose: 300 mg Digoxin (Lanoxin Tab*) 0.125 mg PO DAILY [facility] Last Admin: 02/23/18 08:51 Dose: 0.125 mg Diltiazem HCl (Cardizem Tab*) 60 mg PO Q6HR [facility] Last Admin: 02/23/18 12:27 Dose: 60 mg Furosemide (Lasix Iv*) 60 mg IV Q8H [facility] Last Admin: 02/23/18 05:15 Dose: 60 mg Guaifenesin (Mucinex*) 600 mg PO BID [facility] Last Admin: 02/23/18 08:51 Dose: 600 mg Mometasone Furoate/Formoterol Fumar (Dulera 100/5 Mdi*) 2 puff INH BID [facility] Last Admin: 02/23/18 08:32 Dose: 2 puff Omeprazole (Prilosec Cap*) 20 mg PO DAILY [facility] Last Admin: 02/23/18 08:52 Dose: 20 mg Prednisone (Deltasone Tab*) 10 mg PO DAILY [facility] Last Admin: 02/23/18 08:52 Dose: 10 mg Sodium Chloride (Sodium Chloride Tab*) 1 gm PO BID [facility] Last Admin: 02/23/18 08:52 Dose: 1 gm Warfarin Sodium (Coumadin Tab(*)) 3 mg PO 1700 AURELIO PRN Reason: Protocol Last Admin: 02/22/18 18:42 Dose: 3 mg Vital Signs - 8 hr 02/23/18 02/23/18 02/23/18 07:12 08:00 08:35 Temperature 98.0 F Pulse Rate 24 80 Respiratory 20 18 19 Rate Blood Pressure 93/41 (mmHg) O2 Sat by Pulse 96 99 Oximetry 02/23/18 02/23/18 02/23/18 08:50 08:51 11:47 Temperature 98.0 F Pulse Rate 80 97 Respiratory 20 Rate Blood Pressure 96/46 103/43 (mmHg) O2 Sat by Pulse 99 Oximetry 02/23/18 14:14 Temperature 98.0 F Pulse Rate 84 Respiratory 16 Rate Blood Pressure 97/48 (mmHg) O2 Sat by Pulse 100 Oximetry Oxygen Devices in Use Now: Nasal Cannula Appearance: NAD Eyes: No Scleral Icterus, PERRLA Ears/Nose/Mouth/Throat: NL Teeth, Lips, Gums Neck: Trachea Midline Respiratory: Symmetrical Chest Expansion and Respiratory Effort, - - CTAB, no rhonchi. much improved. Cardiovascular: - - irregularly irregular Extremities: - - 1+ edema, greatly improved. Skin: No Rash or Ulcers Neurological: Alert and Oriented x 3, NL Sensation Nutrition: Taking PO's Result Diagrams: 02/22/18 13:36 02/23/18 05:04 Additional Lab and Data: Laboratory Results - last 24 hr 02/23/18 05:04 Sodium 136 L Potassium 4.1 Chloride 90 L Carbon Dioxide 35 H Anion Gap 11 BUN 10 Creatinine 0.62 Est GFR ( Amer) 119.7 Est GFR (Non-Af Amer) 93.1 BUN/Creatinine Ratio 16.1 Glucose 133 H Uric Acid 8.0 H Calcium 8.9 Magnesium 2.2 Assess/Plan/Problems-Billing Assessment: 77 yo female PMH severe COPD with chronic hypoxic respiratory failure (3L), chronic Afib on warfarin , diastolic CHF, recent hyponatremia, mediastinal lymphadenopathy, spiculate density LLL with planned outpatient bronch with Yina 03/01 presents with 17lb weight gain between 02/14 and 02/20, SOB, lower extremity edema, increased O2 reqs. Her diuretics had been stopped for her hyponatremia during a chest pain admission. Dx Acute Diastolic CHF exacerbation. Improved with aggressive diuresis. #Acute Diastolic CHF exacerbation. - reduce lasix to 40mg IV BID from 60mg IV q8. - daily weights - strict i/o - ECHO unchanged from 2010, pEF. #Afib, chronic - dilt 30 q6 from 60 q6, given softer BPs and aggressive diuresis. Transtion back to long acting soon. - replete lytes Mg>2,K>4 prn - continue coumadin #Hyponatremia, imroved to 136. Had been as low as 122 last week/last admission. - on Salt tabs, fluid restriction. some concern for SIADH (2/2 from a ? potential ?lung cancer). However Yoon <20, maximally dilute last week. Uric acid not low. - recently started on demeclocyline 02/16, continue for now. #COPD - inhalers, chronic steroid 10mg - I think this is CHF rather than acute COPD exacerbation. s/p 1 dose azithromycin in ED DVT PPx: warfarin dispo: medicine inpatient, likely d/c in 24-48 hours.
[2018-02-23] MEDS: Warfarin TAB(*) 3 MG PO SCH (18:14)
[2018-02-24] MEDS: Diltiazem TAB* 60 MG PO SCH ×3 (01:23→11:53)
[2018-02-24 06:27] LABS: EGFR Non-African American 82.3 (>60)
[2018-02-24] MEDS: Mometasone/Formoter 100/5 MDI INH SCH (08:08)
[2018-02-24] MEDS: Furosemide IV* 10 MG/ML 10 ML VIAL (100 MG) IV SCH (09:50)
[2018-02-24] MEDS ORDERED: Acetaminophen TAB* 325 MG PO PRN (09:52)
[2018-02-24] MEDS: Bisoprolol TAB* 5 MG PO SCH (09:52)
[2018-02-24] MEDS: Demeclocycline TAB* 150 MG PO SCH (09:53)
[2018-02-24] MEDS: Omeprazole CAP* 20 MG PO SCH (09:53)
[2018-02-24] MEDS: guaiFENesin ER TAB 600 MG PO SCH (09:53)
[2018-02-24] MEDS: Sodium Chloride TAB* 1 GM PO SCH (09:53)
[2018-02-24] MEDS: Digoxin TAB* 0.125 MG PO SCH (09:53)
[2018-02-24] MEDS: predniSONE TAB* 10 MG PO SCH (09:53)
[2018-02-24 11:54] VITALS: BP 105/68
[2018-02-24] MEDS ORDERED: Diltiazem CD CAP* 240 MG PO ONE (13:04)
[2018-02-24] MEDS ORDERED: Diltiazem CD CAP* 180 MG PO SCH (14:00)
--- NOTE | 2018-02-25 04:59 | DS ---
CC: Lizbeth Doshi MD; Dr. Bran DISCHARGE SUMMARY: DATE OF ADMISSION: 02/22/18 DATE OF DISCHARGE: 02/24/18 PRIMARY CARE PROVIDER: Lizbeth Doshi MD DISCHARGE DIAGNOSIS: Exacerbation of chronic hypoxemic respiratory failure due to acute on chronic d iastolic congestive heart failure. SECONDARY DIAGNOSES: 1. History of lung adenopathy and spiculated lung mass. The patient is planned for bronchoscopy wit Dr. Bran on 03/01/18. 2. Chronic obstructive pulmonary disease, severe, on chronic prednisone at 10 mg and oxygen at 2 to 3 L continuously. 3. History of chronic atrial fibrillation with subsequent atrial thrombus, on Coumadin. 4. History of chronic hypoxemic respiratory failure as mentioned above, on oxygen. 5. Gastroesophageal reflux disease. 6. History of chronic pain. 7. History of diastolic congestive heart failure. 8. History of lung abscess. 9. History of recent thoracentesis for pleural effusions in November 2017. 10. Hypertension. 11. History of wedge resection of the lung in the past. 12. History of pacemaker placement. 13. Parathyroid surgery. 14. History of atrial fibrillation ablation, which was successful for about a year, but returned shaka k in October 2017. MEDICATIONS AT DISCHARGE: Include: 1. Albuterol inhaler on a p.r.n. basis. 2. Albuterol and Atrovent nebulizers on a p.r.n. basis. 3. Zebeta 20 mg daily. 4. Demeclocycline 300 mg 3 times a day. 5. Digoxin 0.125 mg daily. 6. Cardizem CD 360 mg daily. 7. Advair 100/50, 1 inhalation b.i.d. 8. Guaifenesin ER (Mucinex) 600 mg b.i.d. 9. Hydrocodone/acetaminophen 5/325 mg 1 tablet every day p.r.n. pain. 10. Prednisone 10 mg daily. 11. Sodium chloride tablet 1 g b.i.d. 12. Demadex 20 mg daily. 13. Coumadin 3 mg daily. HOSPITALIZATION COURSE: Kathi Magana is a 77-year-old female with history of severe COPD, who was d iagnosed with spiculated lung mass and seen during her hospitalization by Dr. Bran at the end of 2017. At that point in time, she was scheduled for a biopsy to be performed on 03/01/18. She al so at that point was noted to be hyponatremic. At that point, her Demadex was held and she was place d on demeclocycline as well as sodium chloride tablets. She presented to the hospital on 02/22/18. Her sodium levels improved, but she was at that point in respiratory failure. Likely due to that, he r Demadex was discontinued and she needed a diuretic. She was diagnosed with acute diastolic CHF, pl aced on Lasix intravenously with good results. Her hyponatremia is beginning to resolve by the time of discharge. She still complains of chronic cough. She also has gastroesophageal reflux symptoms w ith occasional heartburn, which is also chronic. By the time of discharge, she is down to 2 L of oxyg en continuously via nasal cannula. She is scheduled for lung biopsy with Dr. Bran in the next 5 da ys. She is being discharged home with recommendation to follow up with Dr. Bran as previously ment ioned as well as Dr. Doshi in approximately 4 to 7 days. LABORATORY DATA AND STUDIES PERFORMED DURING THE HOSPITAL STAY: Included on 02/24/18, sodium of 136, potassium 3.3, chloride 90, carbon dioxide 40, BUN 13, creatinine 0.69. White blood cell count of 11.8, hemoglobin of 12.2, hematocrit of 37, and platelets of 424,000. Transthoracic echocardiogram showed EF of 60% to 65% with evidence of mild pulmonary hypertension. D egenerative were noted to the mitral valve with no more than mild mitral valvular disease noted. The re were no significant changes comparing to the study from May 2017. PHYSICAL EXAMINATION: At the time of discharge, blood pressure of 105/68, heart rate of 79 and irreg ular, respiratory rate 18, oxygen saturation 97% on 2 L of oxygen nasal cannula, temperature of 97.5. General: The patient is a very pleasant 77-year-old female, who appears chronically ill, of thin b anali habitus, in no acute distress. The patient is alert, awake, and oriented x3. HEENT: Head: Atra umatic, normocephalic. Eyes: Pupils are equal, reactive to light and accommodation. Oropharynx is clear. Mucosa moist. Neck: Supple. No JVD. No bruits bilaterally. Cardiovascular: Irregularly irregular rhythm. No murmur. Respiratory: Distant breath sounds bilaterally. No significant wheeze s. Abdomen: Soft, nontender. Bowel sounds are present in all 4 quadrants. Extremities: There is n o edema. Pulses are +2 bilaterally. No clubbing or cyanosis. On neuro evaluation, speech is clear. Cranial nerves II through XII grossly intact. Motor strength is 5/5 bilaterally. Please note that this is a short summary of the patient's hospitalization. Please refer to further m edical records for details. TIME SPENT: Approximately 35 minutes were spent on the patient's discharge. [id number]/[facility] #: [id number]
[2018-02-25] MEDS ORDERED: Diltiazem CD CAP* 120 MG PO SCH (09:00)
== END 2018-02-24 14:30 | disposition home or self-care (01) | DRG 291 ==
LOC: ED 12:52 → MEDTELE 14:57
PROVIDERS: ADMIT Internal Medicine; ATTEND Internal Medicine
PROC: 4B02XSZ Measurement of Cardiac Pacemaker, External Approach (ICD-10-PCS; principal; 2018-02-23)
DX: I11.0 Hypertensive heart disease with heart failure (principal); J96.21 Acute and chronic respiratory failure with hypoxia; E87.1 Hypo-osmolality and hyponatremia; I50.33 Acute on chronic diastolic (congestive) heart failure; M81.0 Age-related osteoporosis without current pathological fracture; G43.909 Migraine, unspecified, not intractable, without status migrainosus; I48.2 Chronic atrial fibrillation; K21.9 Gastro-esophageal reflux disease without esophagitis; G89.29 Other chronic pain; R59.0 Localized enlarged lymph nodes; R91.8 Other nonspecific abnormal finding of lung field; I51.3 Intracardiac thrombosis, not elsewhere classified; E89.2 Postprocedural hypoparathyroidism; J44.9 Chronic obstructive pulmonary disease, unspecified; I27.20 Pulmonary hypertension, unspecified; I05.9 Rheumatic mitral valve disease, unspecified; Z87.891 Personal history of nicotine dependence; Z99.81 Dependence on supplemental oxygen; Z88.1 Allergy status to other antibiotic agents; Z97.4 Presence of external hearing-aid; Z79.01 Long term (current) use of anticoagulants; Z95.0 Presence of cardiac pacemaker; Z98.49 Cataract extraction status, unspecified eye; Z80.8 Family history of malignant neoplasm of other organs or systems; Z82.49 Family history of ischemic heart disease and other diseases of the circulatory system; Z79.52 Long term (current) use of systemic steroids; Z86.718 Personal history of other venous thrombosis and embolism
CPT/HCPCS: 36415; 71046; 80048; 80053; 80162; 83605; 83735; 83880; 84443; 84484; 84550; 85025; 85610; 93005; 93306; 94640; 99284; A9270-GY; J0456; J1940; J3475; J7512

== ENCOUNTER 2018-03-01 11:26 | Day surgery (SDC) | payer MEDICARE, BC ==
[~2018-03-01 11:26] MED LIST: Buffered Lidocaine 0.9% SYRIN* 5 ML/SYR SYRINGE INTRADERM ONE; Famotidine TAB* 20 MG PO ONE; NS 0.9% 1000 ML* 1,000 ML IV SCH
[2018-03-01] MEDS ORDERED: Famotidine TAB* 20 MG ONE (11:36)
[2018-03-01] MEDS ORDERED: Levalbuterol 0.63MG/3ML NEB* UNIT OF USE INH ONE ×2 (12:52→12:54)
[2018-03-01] MEDS ORDERED: fentaNYL* 50 MCG/ML 2 ML VIAL (100 MCG VIAL) ONE (13:02)
[2018-03-01] MEDS ORDERED: Midazolam* 1 MG/ML 2 ML VIAL (2 MG) ONE (13:03)
[2018-03-01] MEDS ORDERED: KETAMINE HCL* 50 MG/ML 10 ML VIAL ONE (13:03)
[2018-03-01] MEDS ORDERED: DiMENhydriNATE IV* 50 MG/ML VIAL ONE (13:34)
[2018-03-01] MEDS ORDERED: Propofol* 10 MG/ML 20 ML BTL IV PUSH ONE (13:34)
[2018-03-01] MEDS ORDERED: Dexamethasone IV* 4 MG/ML 1 ML (4 MG) ONE (13:34)
[2018-03-01] MEDS ORDERED: Lidocaine 2% PF * 5 ML VIAL ONE (13:34)
[2018-03-01] MEDS ORDERED: HYDROcodone/ACETAMIN 5-325 MG* 1 TAB PO PRN (14:13)
[2018-03-01] MEDS ORDERED: Levalbuterol 0.63MG/3ML NEB* UNIT OF USE INH PRN (14:13)
[2018-03-01] MEDS ORDERED: Naloxone* 0.4 MG/ML 1 ML VIAL IV PRN (14:13)
[2018-03-01] MEDS ORDERED: Ondansetron INJ* 2 MG/ML VIAL IV PRN (14:13)
[2018-03-01 15:42] VITALS: BP 121/77
--- NOTE | 2018-03-02 11:19 | PRO ---
BRONCHOSCOPY REPORT: DATE OF PROCEDURE: 03/01/18 PROCEDURE PERFORMED: Bronchoscopy with endobronchial ultrasound-guided fine needle aspiration of station 7 node. PREPROCEDURAL DIAGNOSIS: Lymphadenopathy, rule out malignancy. POSTPROCEDURAL DIAGNOSIS: Lymphoma versus small cell cancer. ANESTHESIA?: General anesthesia ANESTHESIOLOGIST: Dr Keene DESCRIPTION OF PROCEDURE: Informed consent was obtained from the patient prior to the procedure after all the risks and benefits were thoroughly explained. The patient recently has been having recurrent PNA, pleural effusions, CT showed dense lymphadenopathy, recently treated for pneumonia. Appropriate time- out was agreed on by attending staff prior to the procedure. The patient was lying supine on the operating room table. A flexible Olympus bronchoscope was inserted through ET tube, ET tube positioning was confirmed to be 2 cm above the level of avelino. Bronchoscope was then inserted into right bronchial tree, which was then inspected. Large amounts of thick secretions were noted and were suctioned out. The patient noted to have diverticula in right upper lobe bronchus. Bronchoscope was then advanced into the left bronchial tree, which was inspected. Thick white secretions were noted and were suctioned out. Bronchoscope was then withdrawn and EBUS bronchoscope was inserted. Station 7 was accessed from the right main bronchus. Six passes were performed from the right side and 4 passes were performed from the left side. Rapid on-site evaluation revealed malignant cells. Bronchoscope was then withdrawn. The patient tolerated the procedure well. Rest of the sample was placed in formalin and was sent to the lab for further examination.The patient was extubated and seen in Recovery in optimal condition. [id number]/[facility] #: [id number] MTDD
== END 2018-03-01 15:59 | disposition home or self-care (01) ==
LOC: OR 11:26
PROVIDERS: ATTEND Internal Medicine
DX: R59.0 Localized enlarged lymph nodes (principal); J44.9 Chronic obstructive pulmonary disease, unspecified; F17.210 Nicotine dependence, cigarettes, uncomplicated; I48.2 Chronic atrial fibrillation; Z79.01 Long term (current) use of anticoagulants; J96.10 Chronic respiratory failure, unspecified whether with hypoxia or hypercapnia; E87.1 Hypo-osmolality and hyponatremia; E21.3 Hyperparathyroidism, unspecified; Z95.0 Presence of cardiac pacemaker
CPT/HCPCS: 88172; 88177; 88184; 88185; 88187; 88188; 88189; 88305; A9270-GY; J1100; J1240; J2250; J2704; J3010

== ENCOUNTER 2018-05-05 17:18 | Inpatient (IN) | payer MEDICARE, BC ==
[2018-05-05] MEDS ORDERED: NS 0.9% 1000 ML* 1,000 ML IV ONE (18:00)
[2018-05-05] MEDS ORDERED: methylPREDNISolone 125 MG* 2 ML VIAL IV ONE (18:02)
[2018-05-05] MEDS ORDERED: Albuterol/Ipratropium NEB.SOL* Albuterol 2.5 MG/Ipratropium 0.5 MG 3 ML INH ONE (18:02)
[2018-05-05] MEDS ORDERED: DOXYcycline IV* 100 MG VIAL IVPB ONE (18:02)
--- NOTE | 2018-05-05 18:17 | ED ---
Shortness of Breath - HPI Summary HPI Summary: Pt is a 77 y/o female BIB[place] who [place] [facility] [place]/o [place]B since 15:00. 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 She denies any new CP, and states she normally can have CP due to her sodium pills. Pt is normally on 3 L oxygen at home, but currently is on 6 L in the ED. She states her oxygen level is usually 97%. PMHx COPD, PNA, lung fluid removal, lung surgery, and pacemaker. She is a former smoker. Pt is currently on Prednisone. - History of Current Complaint Chief Complaint: EDRespiratoryDistress Time Seen by Provider: 05/05/18 17:55 Hx Obtained From: Patient Onset/Duration: Sudden Onset, Lasting Hours - 15:00, Still Present Dyspnea At: Rest Alleviating Factors: Bronchodilators Associated Signs & Symptoms: Wheezing - Allergy/Home Medications Allergies/Adverse Reactions: Allergies Allergy/AdvReac Type Severity Reaction Status Date / Time levofloxacin Allergy Severe GI Upset Verified 03/01/18 11:53 amoxicillin [From Augmentin] AdvReac Stomach Verified 03/01/18 11:53 Cramps clavulanic acid AdvReac Stomach Verified 03/01/18 11:53 [From Augmentin] Cramps PMH/Surg Hx/FS Hx/Imm Hx Endocrine/Hematology History: Reports: Other Endocrine/Hematological Disorders - hyperparathyroidism Denies: Hx Diabetes, Hx Systemic Lupus Erythematosus, Hx Anemia Cardiovascular History: Reports: Hx Angina, Hx Pacemaker/ICD Denies: Hx Congestive Heart Failure, Hx Hypertension Respiratory History: Reports: Hx Asthma, Hx Chronic Obstructive Pulmonary Disease (COPD), Hx Pneumonia GI History: Reports: Hx Gastroesophageal Reflux Disease Denies: Hx Jaundice History: Denies: Hx Renal Disease Musculoskeletal History: Reports: Hx Arthritis, Hx Osteoporosis Denies: Hx Rheumatoid Arthritis Sensory History: Reports: Hx Contacts or Glasses - reading, Hx Hearing Aid Opthamlomology History: Reports: Hx Contacts or Glasses - reading Neurological History: Reports: Hx Headaches, Hx Migraine - Cancer History Hx Chemotherapy: No Hx Radiation Therapy: No - Surgical History Surgery Procedure, Year, and Place: [place] [facility], 07/2002, [facility] DVT in left arm removed, 2011, [facility] in [place]. ORIF rt hip. Pacemaker. Afib ablation Hx Anesthesia Reactions: No Infectious Disease History: No Infectious Disease History: Denies: Traveled Outside the [place] in Last 30 Days - Family History Known Family History: Negative: Renal Disease - Social History Alcohol Use: Rare Hx Substance Use: No Substance Use Type: Reports: None Hx Tobacco Use: Yes Smoking Status (MU): Former Smoker Amount Used/How Often: smoked 3ppd 50 years approx Review of Systems Negative: Fever Negative: Chest Pain Positive: Shortness Of Breath All Other Systems Reviewed And Are Negative: Yes Physical Exam - Summary Physical Exam Summary: Appearance: Well appearing, mild pain distress Skin: warm, dry, reflects adequate perfusion Head/face: normal Eyes: EOMI, JAYLON ENT: dry mucus membranes Neck: supple, non-tender Respiratory: diffuse wheezing, diminished breath sounds globally, prolonged expiratory phase, tachypnea, pursed lip breathing Cardiovascular: RRR, pulses symmetrical, no peripheral edema, no JVD Abdomen: non-tender, soft Bowel Sounds: present Musculoskeletal: normal, strength/ROM intact Neuro: normal, sensory motor intact, A&Ox3 Triage Information Reviewed: Yes Vital Signs On Initial Exam: Initial Vitals Temp Pulse Resp BP Pulse Ox 98.0 F 78 20 96/63 97 05/05/18 17:25 05/05/18 17:25 05/05/18 17:25 05/05/18 17:25 05/05/18 17:25 Vital Signs Reviewed: Yes Diagnostics - Vital Signs Vital Signs Temp Pulse Resp BP Pulse Ox 05/05/18 17:38 85 85 05/05/18 17:34 114/61 05/05/18 17:25 98.0 F 78 20 96/63 97 - Laboratory Result Diagrams: 05/05/18 18:38 05/05/18 18:38 Lab Statement: Any lab studies that have been ordered have been reviewed, and results considered in the medical decision making process. - Radiology CXR Xray Interpretation: Positive (See Comments) - 18:01 1. BILATERAL INFILTRATES AND SMALL PLEURAL EFFUSIONS DEMONSTRATING INTERVAL PROGRESSION. 2. BILATERAL ENLARGEMENT OF THE MELISSA MOST CONSISTENT WITH HILAR ADENOPATHY, UNCHANGED. ED physician reviewed radiology report. 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 She is normally on 3 L of home nasal cannula oxygen but had to be increased to 6 L for hypoxia down to 84%. She reports gasping respirations at home. Here she has quiet lung sounds with wheezes bilaterally. She was started on Vapotherm, given breathing treatments and IV steroids. She was also given IV doxycycline given her multiple antibiotic allergies. She proved to have infiltrates on chest x-ray consistent with pneumonia. She is doing much better on the Vapotherm with increased comfort, decreased respiratory rate and work of breathing. She'll be admitted through the hospitalist service by Dr. Wright. - Diagnoses Differential Diagnosis/HQI/PQRI: Positive: CHF, COPD Exacerbation, MS, Pneumonia , Pneumothorax Provider Diagnoses: COPD (chronic obstructive pulmonary disease), Bilateral pneumonia, Atrial fibrillation - Physician Notifications Discussed Care of Patient With: Aneudy Wright - admit to tele service - Critical Care Time Critical Care Time: 30-74 min - 30 minutes. CCT is separately billable from other procedures. Discharge - Sign-Out/Discharge Documenting (check all that apply): Patient Departure - Admit, Sign-Out Patient Signing out patient TO: Aneudy Wright - Discharge Plan Condition: Guarded Disposition: ADMITTED TO [facility] Referrals: Lizbeth Lorenzo MD [Primary Care Provider] - - Billing Disposition and Condition Condition: GUARDED Disposition: Admitted to [facility]
--- OUTSIDE RECORDS SUMMARY | 2018-05-05 18:31 | XMS REPORT ---
:1940 External Reference #:[id number] Author Organization [facility] Address [address] [place] [address] Phone [phone] Care Team Providers Name Role Phone Lizbeth Doshi MD Primary Care Physician Unavailable Payers Type Date Identification Numbers Payment Provider Subscriber Medicare Primary Policy Number: [id number] Medicare Kathi Magana PayID: [id number] [address] [place] [address] Medigap Part B Effective: 2013 Policy Number: BS Facets Kathi Magana [id number] PayID: [id number] [address] [address] [place] [address] Problems Date Description Provider Status Onset: 08/03/2016 Paroxysmal atrial fibrillation Jonel Ugalde M.D., [facility] , Active FASNC Onset: 07/09/2015 Essential hypertension Jonel Ugalde M.D., [facility], Active FASNC Onset: 07/09/2015 Chest pain Jonel Ugalde M.D., [facility], Active FASNC Onset: 11/06/2013 Dyspnea Jonel Ugalde M.D., [facility], Active FASNC Onset: 11/06/2013 Atrial fibrillation Jonel Ugalde M.D., [facility], Active FASNC Family History Date Family Member(s) Problem(s) Comments General Diabetes General Hypertension General Heart Disease General Stroke General Cancer General Rheumatoid Arthritis Social History Type Date Description Comments Marital Status Lives With Alone 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 [employer] Cigarette Use Former Cigarette Smoker 3 [...] Form Strength Qnty SIG Indications Ordering Provider Prednisone 04/14 Active Tablets 10mg 30tab 30mg daily J44.9 Cecile s for 1 week, Yina, 20mg daily MD for 1 week, 10 mg daily for 1 week Doxycycline 04/14 Active Capsules 100mg 14cap 1 tablet by J44.9 Cecile Monohydrate s mouth every Yina, 12 hours Budesonide 02/10 Active Suspension 0.25mg/2M 180un use one vial J44.9 L its in nebulizer Yina, twice daily Perforomist 02/10 Active Nebulizer 20mcg/2ML 180ml 1 unit J44.9 nebulizer Yina, twice daily Nebusal 02/08 Active Nebulizer 3% 240ml 1 unit twice daily for 2 Yina, weeks Nebulizer 01/26 Active Kit 1unit 1 unit J47.1 Cecile Kit/Tubing/Mout /2017 s nebulization Yina, hpiece every 4- 6 MD hours as needed Acapella 01/26 Active Misc use as J47.1 directed MD Yina Oxygen 01/26 Active Misc 1unit please use R09.02 s o2 at 3l/min Yina, during MD exertion, pls provide pt with portable o2 concentrator Warfarin Sodium Active 3mg 1 by mouth Glenda, / daily as tavon Patel MD adjusted by [...] Capsules DR 40mg 1 by mouth Unknown every day Bisoprolol Active Tablets 10mg Glenda, Lizbeth Ayala MD Digoxin Active Tablets 125mcg 1 by mouth Glenda, daily Lizbeth Ayala MD Diltiazem HCL Active Caps ER 360mg Take One Unknown ER 24HR Capsule By Mouth One Time Daily Torsemide Active Tablets 20mg 1 by mouth Unknown daily Sodium Chloride Active Tablets 1gm 1 by mouth once a day Hydrocodone-Miller Active Tablets 5-325mg 1-2 by mouth Glenda taminophen daily as Lizbeth Ayala, fausto LINN Mucinex Active Tablets ER 600mg once a day 12HR as needed Doxycycline 01/26 Hx Capsules 100mg 20cap 1 tablet by J44.1 Cecile Monohydrate s mouth every Yina, - 12 hours 02/05 Prednisone 01/26 Hx Tablets 10mg 30tab 30mg daily Sony44.1 Cecile /2017 s for 1 week, Yina, - 20mg daily 02/05 for 1 week, 10 mg daily for 1 week Keflex 02/11 Hx Capsules 500mg 9caps 1 by mouth Catarino three times D. Brand, - a day for 3 M.D. Sotalol HCL 02/11 Hx Tablets 160mg 180ta 1 tab by Jonel bs mouth twice Mosquera - per day Aftab 01/25 M.D., [facility], JUAN PABLO Norvasc 01/14 Hx Tablets 2.5mg 90tab Take one 427.31 s tablet per Mosquera - day Aftab 01/14 M.D., [facility], JUAN PABLO Lisinopril 11/06 Hx Tablets 40mg 90tab 1/2 tablet s by mouth Demetri - every day Aftab 12/28 M.D., [facility], JUAN PABLO Sotalol HCL 05/07 Hx Tablets 120mg 180ta 1 tab by Jonel /2012 bs mouth twice Mosquera - a day Aftab 02/11 Myah, /2014 FACC, FASNC Lisinopril Hx Tablets 20mg 1 po qd [...] Unknown Besylate /0000 every day - 01/25 Spironolactone Hx Tablets 25mg 1 by mouth Glenda, /0000 daily Chica Patel MD 04/13 Jantoven Hx Tablets 3mg 1 tab by Unknown /0000 mouth in in - the morning 02/[address] 81mg 1 by mouth Unknown /0000 every day - 02/05 Vitamin D-3 Hx Capsules 1000Unit 1 by mouth Unknown /0000 every day - 02/05 Multivitamin 00 Hx Tablets Adlt 50+ once a day Unknown Adults 50+ /0000 - 04/13 Prednisone Hx Tablets 10mg taper as Unknown /0000 directed - 04/13 Medications Administered in Office Medication Date Status Form Strength Qnty SIG Indications Ordering Provider Inj, Administered Injection Jonel Mosquera Regadenoson, 017 Aftab, 0.1 MG Myah, FACC, FASNC Technetium TC Administered Injection Jonel Mosquera 99M 017 Myriam Ugalde M.D., FAC, Per Unit Dose FASNC Up To 40 Millicuries Inj, Administered Injection Jonel Mosquera Regadenoson, 015 Aftab, 0.1 MG MJuancarlos, FAC, FASAZ Technetium TC Administered Injection Jonel Mosquera 99M 015 Aftab Tetrofosmin, Myah, FAC, Per Unit Dose FASNC Up To 40 Millicuries Vital Signs Date Vital Result Comment 04/14/2018 Height 67 inches 5'7" Weight 116.00 lb Heart Rate 96 /min BP Systolic Sitting 106 mmHg BP Diastolic Sitting 60 mmHg Respiratory Rate 14 /min O2 % BldC Oximetry 91 % on 3L BMI (Body Mass Index) 18.2 kg/m2 03/29/2018 Height 67 inches 5'7" Weight 115.31 lb per pt, pt in wheelchair Heart Rate 86 /min BP Systolic Sitting 106 mmHg Lue reg cuff BP Diastolic Sitting 68 mmHg Lue reg cuff Respiratory Rate 14 /min O2 % BldC Oximetry 95 % On 3L O2 BMI (Body Mass Index) 18.1 kg/m2 02/06/2018 Height 67 inches 5'7" Weight 135.00 lb BP Systolic 114 mmHg BP Diastolic 62 mmHg Respiratory Rate 20 /min Body Temperature 97.9 F Pain Level 4 BMI (Body Mass Index) 21.1 kg/m2 01/26/2018 Height 67 inches 5'7" Weight 135.00 lb per pt, at dr. 3 weeks ago Heart Rate 92 /min [...] Test Date Test Result H/L Range Note Leukemia/Lymphoma 03/01/2018 Path Interpretation 2-8 Marker TNP Flow Path Interpret 9-15 Marker (SEE NOTE) 1 Path Interpret > 16 Marker TNP Laboratory test 03/01/2018 Cytology Non-Cooker Sulfite SEE RESULT BELOW 2 finding Laboratory test 09/09/2016 Non-Cooker Sulfite Interface SEE RESULT BELOW 3 finding Order Laboratory test 02/18/2015 Troponin I 0.03 ng/mL High <0.03 4, 5 finding Basic Metabolic Panel 02/18/2015 Sodium 135 mmol/L 133-145 4 Potassium 4.8 mmol/L 3.5-5.0 4 Chloride 99 mmol/L Low 101-111 4 Co2 Carbon Dioxide 29 mmol/L 22-32 4 Anion Gap 7 mmol/L 2-11 4 Glucose 96 mg/dL 70-100 4 Blood Urea Nitrogen 16 mg/dL 6-24 4 Creatinine 0.75 mg/dL 0.51-0.95 4 BUN/Creatinine Ratio 21.3 High 8-20 4 Calcium 9.2 mg/dL 8.6-10.3 4 Egfr Non- 75.3 >60 4 Egfr 96.9 >60 4, 6 Inr/Protime 02/05/2015 Inr 3.26 High 0.78-1.07 Pre [...] Egfr Non- 82.9 >60 Egfr 106.7 >60 7 CBC Auto Diff 02/05/2015 White Blood Count [...] 0-2 Nucleated Red Blood Cells % 0 Basic Metabolic Panel 11/13/2013 Sodium 136 mmol/L 133-145 Potassium 4.4 mmol/L 3.5-5.0 Chloride 101 mmol/L 101-111 Co2 Carbon Dioxide 29.0 mmol/L 22-32 Anion Gap 6.0 mmol/L 2-11 Glucose 74 mg/dL 70-100 Blood Urea Nitrogen 14 mg/dL 6-24 Creatinine 0.70 mg/dL 0.50-1.40 BUN/Creatinine Ratio 20.0 8-20 Calcium 9.4 mg/dL 8.1-9.9 Egfr Non- 81.8 >60 Egfr 105.2 >60 8 Inr/Protime 11/13/2013 Inr 2.64 High 0.85-1.06 1 FINAL DIAGNOSIS: Specimen Source: Lymph node, station 7 ([id number]) Flow cytometry immunophenotypic analysis: No evidence of an immunophenotypically abnormal cell population. Interpretative data: Lymphocytes: 64% of gated events B-cells: 22% of lymphs; kappa:lambda within normal limits T-cells/NK cells: No aberrant population detected. Markers tested: CD3, CD5, CD7, CD10, CD19, CD20, CD23, CD45, kappa surface light chains, lambda surface light chains, 7-AAD. Quality Assessment: Acceptable Viability: Acceptable Viable lymphocytes (7-AAD): 99% Specimen received within validated guidelines. A Membreno-Giemsa stained slide prepared from the flow cytometry specimen was examined for quality purposes. Electronically signed by: Deb Stephens MD 03/03/18 1423 Technical component performed by: [place] [address] [employer] Clerk: Julio Hansen II, MD, PhD. 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 See comment. Comment: The aspirate smears and formalin fixed cell block demonstrate mixed lymphoid elements, pigment laden macrophages and abundant blood. No morphologic features of metastatic carcinoma identified. Concurrent flow cytometric evaluation demonstrates no evidence of a lymphoproliferative disorder. Correlation with imaging studies is suggested. Additional studies is warranted. A cell block was prepared in the evaluation of this specimen. Smears and cell block reveal similar findings. 1. LYMPH NODE - US GUIDED ENDOBRONCHIAL STATION 7 FINE NEEDLE ASPIRATION CLINICAL HISTORY Mediastinal mass. Enlarged lymph nodes. CONTINUED ON NEXT PAGE DEPARTMENT OF PATHOLOGY, [address] [place] [address] Kristofer Ferguson M.D. Director [facility] # [id number] RUN DATE: 03/06/18 [facility] LAB LIVE PAGE 2 Patient: MIKAL MAGANACELSO Lim [id number] (Continued) IMMEDIATE INTERPRETATION (Continued) IMMEDIATE INTERPRETATION Pass 1 thru 7-inadequate. Pass 8 thru 11- adequate material. PRE-OPERATIVE DIAGNOSIS Dang GROSS DESCRIPTION US guided endobronchial fine needle aspiration x 11 pass(es) with 12 alcohol fixed slides 8 Air dried slide(s), needle rinse in formalin for cell block and Specimen sent to [facility] for Flow cytometry [place], [place] on 03/01/18 by [id number] at 1528. SPECIAL STUDIES Flow cytometry has been performed at [facility], [place], [place]. The testing reveals: FINAL DIAGNOSIS: Specimen Source: Lymph node, station 7 ([id number]) Flow cytometry immunophenotypic analysis: No evidence of an immunophenotypically abnormal cell population. Interpretative data: Lymphocytes: 64% of gated events B-cells: 22% of lymphs; kappa:lambda within normal limits T-cells/NK cells: No aberrant population detected. Markers tested: CD3, CD5, CD7, CD10, CD19, CD20, CD23, CD45, kappa surface light chains, lambda surface light chains, 7-AAD. Quality Assessment: Acceptable Viability: Acceptable Viable lymphocytes (7-AAD): 99% CONTINUED ON NEXT PAGE DEPARTMENT OF PATHOLOGY, [address] [place] [address] Kristofer Ferguson M.D. Director [facility] # [id number] RUN DATE: 03/06/18 [facility] LAB LIVE PAGE 3 Patient: KATHI MAGANA [id number] (Continued) SPECIAL STUDIES (Continued) SPECIAL STUDIES (Continued) Specimen received within validated guidelines. A Membreno-Giemsa stained slide prepared from the flow cytometry specimen was examined for quality purposes. Electronically signed by: Deb Stephens MD 03/03/18 1423 Technical component performed by: [place] [address] [employer] Clerk: Julio Hansen II, MD, PhD. Signed by and Reported on: Kristofer Ferguson MD 1233 END OF REPORT DEPARTMENT OF PATHOLOGY, [address] [place] [address] Kristofer Ferguson M.D. Director [facility] # [id number] 3 SEE RESULT BELOW Name: KATHI MAGANA : [address]: Abdoul Esteves MD Acct: [id number] Unit: [id number] AGE: 76 Location: THYROID Re09/09/16 SEX: F Status: REG REF SPEC: [id number] NATALI: 09/09/[address] [facility] [address]: Martin Augustin MD REQ: [id number] RECD: 09/09/16 STATUS: JUSTINE YAO DR: Abdoul Doshi MD _ ORDERED: FN ASP DEEP, FNA IMMEDIATE S FINAL DIAGNOSIS Thyroid, left inferior, Ultrasound guided, fine needle aspiration: Benign thyroid nodule-involutional ([place] class II). The specimen demonstrates abundant watery [...] performed at Main Lab DEPARTMENT OF PATHOLOGY, [address] [place] [address] Kristofer Ferguson M.D. Director [facility] # [id number] RUN DATE: 09/09/16 [facility] LAB LIVE PAGE 2 Patient: KATHI MAGANA [id number] (Continued) IMMEDIATE INTERPRETATION (Continued) IMMEDIATE INTERPRETATION Pass 1-inadequate Pass 2-adequate GROSS DESCRIPTION 8- alcohol fixed slide(s) 2 - passes Signed (signature on file) Kristofer Ferguson MD 0948 END OF REPORT * ML=Testing performed at Main Lab DEPARTMENT OF PATHOLOGY, [address] [place] [address] Kristofer Ferguson M.D. Director [facility] # [id number] 4 today 5 Reference Range and Interpretation: TnI (ng/mL) Interpretation Less Than 0.03 ng/mL Not supportive of diagnosis of VA 0.03 - 0.50 ng/mL Indeterminate: suggest serial studies if clinically indicated. Greater than 0.5 ng/mL Consistent with diagnosis of VA 6 Because ethnic data is not always [...] 15-29 5 Kidney failure <15 (or dialysis) 7 Because ethnic data is not always readily [...] 15-29 5 Kidney failure <15 (or dialysis) 8 Because ethnic data is not always readily [...] dialysis) Procedures Date CPT Code Description Status 03/01/2018 07698 With Endobronchial Ultrasound Guided Completed 02/23/2018 15216 ECHO Transthorasic Realtime 2D W Doppler & Color Flow Completed Hosp 02/16/2018 20320 Treadmill Interp/Report Only Completed 02/16/2018 70968 Stress Test Supervsn W/Out I/R Completed 02/15/2018 08362 EKG, Interpretation Only Completed 03/07/2017 59057 Stress Test Completed 03/07/2017 92377 Myocardial Perfusion Imaging Tomographic (Spect) Completed Multiple Studies 03/01/2017 21191 ECHO Transthoracic, Real-Time 2D With Doppler And Color Completed Flow 12/29/2016 18084 EKG Tracing & Interpretation Completed 10/12/2016 84213 Pace Maker Eval W/Iterative Adjment Dual Lead Completed 08/03/2016 73979 EKG Tracing & Interpretation Completed 04/02/2016 26931 Pace Maker Eval W/Iterative Adjment Dual Lead Completed 09/25/2015 26198 Pace Maker Eval W/Iterative Adjment Dual Lead Completed 07/21/2015 81059 Myocardial Perfusion Imaging Tomographic (Spect) Completed Multiple Studies 07/21/2015 36242 Stress Test Completed 03/20/2015 70329 Pace Maker Eval W/Iterative Adjment Dual Lead Completed 02/25/2015 30906 EKG Tracing & Interpretation Completed 02/20/2015 41363 ECHO Transthoracic, Real-Time 2D With Doppler And Color Completed Flow 02/12/2015 40753 EKG, Interpretation Only Completed 02/11/2015 18814 Interrogation Device Eval In Person W/DR Completed Analysis,Single,Dual,Mul 02/11/2015 78544 EKG, Interpretation Only Completed 02/10/2015 08656 EKG, Interpretation Only Completed 02/10/2015 71919 EKG, Interpretation Only Completed 02/10/2015 37196 Perm Pacemaker Av Sequential Atrial And Ventricular Completed 01/14/2015 48387 EKG Tracing & Interpretation Completed 12/04/2013 Mammogram Completed 11/06/2013 59424 EKG Tracing & Interpretation Completed 10/23/2013 73930 ECHO Transthoracic, Real-Time 2D With Doppler And Color Completed Flow Encounters Type Date Location Provider CPT E/M Dx Office Visit 04/14/2018 [facility] [address] R59.0 11:45a Services Of Clothing Worker J44.9 J47.9 R09.02 Office Visit 03/29/2018 11:00a [facility] [place] [address] R59.0 Services Of Clothing Worker J44.9 J47.9 Office Visit 02/24/2018 9:56a [facility], Lizbeth [place], [address]1591 I50.9 Hospitalists M.Rufino J44.9 E87.1 I48.2 Office Visit 02/23/2018 9:55a [facility], [place] [address] I50.9 Hospitalists J44.9 E87.1 I48.2 Office Visit 02/22/2018 9:54a [facility], [place] [address] I50.9 Hospitalists J44.9 E87.1 I48.2 Office Visit 02/17/2018 9:21a [facility], William Haines, 10242 R07.9 Hospitalists MJuancarlos J44.9 I10 I48.91 Office Visit 02/16/2018 9:20a [facility], Jean Nicole, 47260 R07.9 Hospitalists MJuancarlos J44.9 I10 I48.91 Office Visit 02/16/2018 11:56a [facility] [place] [address] R59.0 Services Of Clothing Worker J47.9 J90 Office Visit 02/15/2018 11:56a [facility] [place] [address] R59.0 Services Of Clothing Worker J47.9 J90 K21.9 Office Visit 02/14/2018 9:15a [facility], Ceferino Jiménez, [address] R07.9 Hospitalists N.PLizeth J44.9 I10 I48.91 Office Visit 02/06/2018 2:00p [facility] Abernathy M.D. 14199 S72.001A C.M.A. Z96.641 Office Visit 01/26/2018 3:00p [facility] [place] [address] J44.1 Services Of Clothing Worker J90 J47.1 R09.02 Office Visit 03/14/2017 11:45a [facility] Jonel Ugalde, [address]6514 R07.9 Luis Alberto Glasgow, FACC, FASAZ Office Visit 12/29/2016 8:45a [facility] Jonel Ugalde, 60819 I48.0 Clothing Worker M.D., [facility], FASAZ R07.9 Office Visit 08/03/2016 2:30p [facility] Jonel Ugalde, 60566 I48.0 Clothing Worker M.D., FACC, FASNC Z95.0 Office Visit 07/28/2015 12:15p [facility] Jonel Ugalde, 25464 R07.9 Clothing Worker AT [facility].D., FAC, FASAZ Office Visit 07/09/2015 11:45a [facility] Jonel Ugalde, [address] 786.50 Clothing Worker AT [facility].D., [facility], [facility] 401.9 Office Visit 02/18/2015 1:00p [facility] Catarino Tuttle, [address]14[address] 427.31 Clothing [facility] 786.05 786.50 Office Visit 01/24/2015 2:30p [facility] Catarino Tuttle, [address]298 427.31 [facility] M.DLizeth 427.81 Office Visit 01/14/2015 1:45p [facility] Jonel Ugalde, 83716 427.31 Clothing Worker M.D., FAC, FASAZ Office Visit 01/14/2014 11:30a [facility] Jonel Ugalde, 57061 427.31 [facility] M.D., FAC, FASNC Office Visit 11/06/2013 1:45p [facility] Jonel Ugalde, 04351 427.31 Clothing Worker AT [facility], [facility], [facility] 786.05 Plan of Care Future Appointment(s):06/15/2018 11:30 am - Cecile Bran MD at [facility]05/10/2018 1:30 pm - Jonel Ugalde M.D., [facility], [facility] at [facility]05/08/2018 1:45 pm - Zacarias Abernathy M.D. at [facility] C.M.A.04/14/2018 - Cecile Bran, MDR59.0 Localized enlarged lymph nodesFollow up:6 weeks , CT chest prior, make appointment same day after CT [id number] Chronic obstructive pulmonary disease, unspecifiedNew Medication:Prednisone 10 mgDoxycycline Monohydrate 100 mgJ47.9 Bronchiectasis, bruorftrslofmR99.02 Hypoxemia
--- NOTE | 2018-05-05 18:55 | RAD ---
INDICATION: Respiratory failure. COMPARISON: Comparison is made with a prior chest x-ray study from February 22, 2018. Correlation is also made with a prior CT of the chest from April 14, 2018. TECHNIQUE: A portable view of the chest was obtained. FINDINGS: The heart is within normal limits in size. There is a dual-chamber transvenous pacemaker present. There is prominence of the melissa bilaterally which appear unchanged which appears to correlate with hilar adenopathy on the prior CT of the chest. There is mild prominence of the interstitial markings which appears unchanged. There are patchy infiltrates in the mid and lower lung steen and small bilateral pleural effusions which have progressed from the prior exam. IMPRESSION: 1. BILATERAL INFILTRATES AND SMALL PLEURAL EFFUSIONS DEMONSTRATING INTERVAL PROGRESSION. 2. BILATERAL ENLARGEMENT OF THE MELISSA MOST CONSISTENT WITH HILAR ADENOPATHY, UNCHANGED.
[2018-05-05 18:56] LABS: ABS Basophils 0 10^3/ul (0-0.2); ABS Eosinophils 0 10^3/ul (0-0.6); ABS Monocytes 0.8 10^3/ul (0-0.8); ABS Neutrophils 17.2 10^3/ul (1.5-7.7); ABS Nucleated RBC 0 10^3/ul; Eosinophil % 0.1 % (0-6); Hematocrit 40 % (35-47); Hemoglobin 13.5 g/dl (12.0-16.0); Lymphocyte % 5.5 % (25-47); Mean Corpuscular HGB Conc 34 g/dl (31-36); Mean Corpuscular Hemoglobin 31 pg (27-31); Mean Corpuscular Volume 92 fL (80-97); Mean Platelet Volume 8.7 um3 (7.4-10.4); Nucleated Red Blood Cells % 0; Platelet Count 362 10^3/ul (150-450); Red Blood Count 4.33 10^6/ul (4.00-5.40); Red Cell Distribution Width 16 % (10.5-15); White Blood Count 19.1 10^3/ul (3.5-10.8)
[2018-05-05 19:03] LABS: INR 2.44 (0.77-1.02)
[2018-05-05 19:14] LABS: EGFR Non-African American 94.9 (>60)
[2018-05-05] MEDS ORDERED: DOXYcycline IV* 100 MG in NS 0.9% 250 ML* 250 ML IVPB ONE (19:30)
[2018-05-05] MEDS ORDERED: Warfarin TAB(*) 3 MG PO SCH (21:00)
[2018-05-05] MEDS ORDERED: Polyethylene Glycol 3350* 17 GM PACKET PO PRN (21:07)
[2018-05-05] MEDS ORDERED: Albuterol/Ipratropium NEB.SOL* Albuterol 2.5 MG/Ipratropium 0.5 MG 3 ML INH PRN (21:15)
[2018-05-05] MEDS: Omeprazole CAP* 20 MG PO SCH (23:09)
[2018-05-05] MEDS: cefTRIAXone(*) 1 GM in NS 0.9% 50 ML* 50 ML IVPB SCH (23:09)
[2018-05-05] MEDS: Bisoprolol TAB* 5 MG PO SCH (23:17)
[2018-05-05] MEDS: Sodium Chloride TAB* 1 GM PO SCH (23:17)
--- NOTE | 2018-05-05 23:47 | HP ---
CC: Dr. Doshi; Dr. Bran; Dr. Ugalde * HOSPITAL MEDICINE HISTORY AND PHYSICAL: DATE OF ADMISSION: 05/05/18 PRIMARY CARE PHYSICIAN: Dr. Doshi. MARKETING PRODUCTION SPECIALIST: Dr. Bran. MAP COLORER: Dr. Ugalde. ATTENDING PHYSICIAN: Dr. Aneudy Wright * (dictation provided by Gertrude Chinchilla NP). CHIEF COMPLAINT: Shortness of breath. HISTORY OF PRESENT ILLNESS: Ms. Magana is a 77-year-old female with a complicated past medical history including long-term pulmonary issues including lung abscess, status post a wedge resection in 2001, COPD on 3 L nasal cannula, recent thoracentesis earlier this year with ongoing evaluation by Dr. Bran for significant lymphadenopathy and pulmonary parenchymal opacities with bronchiectasis and mucous plugging, who presents today to the hospital with shortness of breath. For this complaint, patient has had thoracentesis and bronchoscopy with biopsy without finding of malignancy or clear etiology. Ms. Magana states she was last treated with doxycycline and prednisone about 2 weeks ago. She is currently on prednisone 10 mg p.o. daily after going through a brief taper. She was feeling in her normal baseline in terms of breathing at home today. She slept poorly through the night related to insomnia. She had no shortness of breath. However, this morning, she had the sudden onset of very severe shortness of breath. She took her albuterol nebulizer, but despite this, she could not catch her breath and therefore she called EMS to be brought to the hospital. EMS note that she had "rhonchi in all steen." She was transitioned from her home 3 L up to 6 L nasal cannula for transfer to the hospital. In the emergency room, the patient was felt to be in respiratory distress and was initially placed on Vapotherm, but has now been weaned back to her home 3 L nasal cannula and states she feels her breathing feels back to baseline. She has had no fever, no chills, no chest pain. No nausea, vomiting , diarrhea. She actually reports feeling constipated. In the emergency room, again as stated, the patient has been weaned back down to her home O2. She has a chest x-ray that shows bilateral infiltrates and small pleural effusions demonstrating interval progression, bilateral enlargement of the hilum was consistent with hilar adenopathy, unchanged. She is satting greater than 92% on 3 L nasal cannula. She is not tachycardic. Her blood pressure is running about 116/67. Her labs are remarkable for white blood cell count of 19.1, which could perhaps be related to recent prednisone usage. She has ABG showing a metabolic alkalosis. Her CRP is 120.27. Ms. Magana states that she last followed up with Dr. Bran on 04/14/[address] That chest CT showed interval progression of parenchymal opacities and lymphadenopathy. Plan at that time based on significant discussions with the patient, Dr. Bran, and the family was that the patient would like to forego any further biopsies and to repeat CT scan in 6 weeks. This is scheduled for 06/15/18. The patient has had multiple workups for cancer across several years, first starting in 2001 when she had lung abscess and underwent a wedge resection because it was suspected to be cancer. She has had 2 bronchoscopies, both of which had been negative. She had a thoracentesis earlier this year, which was also negative. The patient does report losing about 65 pounds since October, but again no malignancy has been confirmed. PAST MEDICAL HISTORY: 1. History of SIADH. 2. Low-risk stress test, January 2018. 3. History of arterial thrombosis, left upper extremity, status post retrieval approximately 7 to 8 years ago. 4. Atrial fibrillation, on chronic warfarin therapy. 5. COPD, on 3 L nasal cannula routinely. 6. GERD. 7. Chronic pain. 8. Diastolic congestive heart failure. 9. Hypertension. MEDICATIONS: 1. Combivent 2 puffs inhaled 4 times daily p.r.n. 2. Prednisone 10 mg p.o. daily. 3. Albuterol 1 puff inhaled q.6 hours p.r.n. 4. Bisoprolol 10 mg p.o. b.i.d. 5. Digoxin 0.125 mg p.o. q.a.m. 6. Diltiazem 360 mg p.o. q.a.m. 7. Fluticasone with salmeterol 100/50 one puff inhaled b.i.d. 8. Hydrocodone/acetaminophen 5/325 one to two tabs p.o. daily p.r.n. 9. Omeprazole 40 mg p.o. at bedtime. 10. Sodium chloride 1 g p.o. b.i.d. 11. Torsemide 20 mg p.o. q.a.m. 12. Warfarin 3 mg. ALLERGIES: To LEVOFLOXACIN, AMOXICILLIN, and CLAVULANIC ACID. FAMILY HISTORY: The patient reports her mother related to old age. Dad related to bone cancer. SOCIAL HISTORY: The patient is a former smoker. She denies alcohol or drug use. She lives alone. She states that her son would be the healthcare proxy. REVIEW OF SYSTEMS: A 14-point review of systems are completed with Ms. Magana and all those not mentioned above were negative. PHYSICAL EXAMINATION GENERAL: Ms. Magana is lying in the bed. She appears comfortable. She is cachetic female. VITAL SIGNS: Temperature 98.0, pulse rate 81, respiratory rate 26, O2 saturation 92% on 3 L nasal cannula, blood pressure 118/58. LUNGS: Show rhonchi bilaterally. Coarse breath sounds throughout. There is no accessory muscle use. HEART: S1, S2. No murmur, rub, gallop and regular. ABDOMEN: Soft, nontender with bowel sounds positive x4. EXTREMITIES: No cyanosis or edema. NEUROLOGIC: She is alert. She is oriented x3. She moves all extremities equally. There is no facial asymmetry or focal weakness. Extraocular movements are intact. SKIN: Intact. DIAGNOSTIC STUDIES/LAB DATA: Sodium 136, potassium 3.5, chloride 84, serum bicarbonate 41, BUN 15, creatinine 0.61, glucose 127, lactic acid 0.6, CRP 120.27. Troponin 0.02. BNP 142. WBC 19.1, hemoglobin 13.5, hematocrit 40, platelet count 362. INR 2.44. ABG shows pH 7.56, pCO2 49, pO2 87, and bicarbonate 39.8. Chest x- ray is as read per above. EKG shows atrial fibrillation with heart rate about 90. ASSESSMENT: Ms. Magana is a 77-year-old female with past medical history of chronic obstructive pulmonary disease, on 3 L nasal cannula and ongoing undefined lung process involving hilar lymphadenopathy and pulmonary opacities, who is being followed by Dr. Bran. She presents today to the hospital with shortness of breath. Our plans are for observation in the hospital for the followin. Acute on chronic hypoxic respiratory failure secondary to sepsis with possible pneumonia: The patient has been given steroids and nebulizers in the emergency room and with this, she has had some improvement, although she remains dyspneic with mobility. She is now on her 3 L nasal cannula at rest. Given this complexity and severity of her underlying lung disease, sherequires monitoring closely overnight. It is possible that she could have an underlying component of pneumonia, which would be difficult to see on the chest x-ray, but she certainly has continued progression of her underlying lung problem. Plan for ceftriaxone and doxycycline.. She will have urine Strep pneumo and legionella. For sputum culture , the patient is able to produce 1, although I think the yield of that would be low. The patient will have Duo nebulizers q.4 p.r.n. She will have oxygen available per protocol. The patient has an elevated white blood cell count and some tachypnea, which will qualify her for sepsis via systemic inflammatory response syndrome criteria. However, she is not meeting criteria otherwise and does not have severe sepsis or septic shock. Blood cultures have been sent. The patient has been given Solu- Medrol in the ED. We will continue 60 mg starting tomorrow a.m. 2. Atrial fibrillation. Continue home warfarin, digoxin, diltiazem. 3. Congestive heart failure. No evidence of acute exacerbation. Continue torsemide. 4. History of SIADH. Continue sodium chloride. 5. Gastroesophageal reflux disease. Continue omeprazole. 6. Chronic pain. Continue hydrocodone. 7. For hypertension, continue bisoprolol and diltiazem. 8. Code status is DNR/DNI. A MOLST form has been completed with the patient. TIME SPENT: Approximately 75 minutes were spent on the admission of this patient, more than half of the time was spent with the patient at the bedside reviewing the events leading up to and during thus far in the ED, performing the physical examination, and reviewing my plan of care. GERTRUDE CHINCHILLA NP [id number]/[facility] #: [id number] ELVIS
[2018-05-06] MEDS: Mometasone/Formoter 100/5 MDI INH SCH ×3 (00:01→20:35)
[2018-05-06 06:36] LABS: ABS Basophils 0 10^3/ul (0-0.2); ABS Eosinophils 0 10^3/ul (0-0.6); ABS Lymphocytes 0.7 10^3/ul (1.0-4.8); ABS Monocytes 0.3 10^3/ul (0-0.8); ABS Neutrophils 11.5 10^3/ul (1.5-7.7); ABS Nucleated RBC 0 10^3/ul; Eosinophil % 0 % (0-6); Hematocrit 35 % (35-47); Hemoglobin 11.6 g/dl (12.0-16.0); Lymphocyte % 5.3 % (25-47); Mean Corpuscular HGB Conc 34 g/dl (31-36); Mean Corpuscular Hemoglobin 31 pg (27-31); Mean Corpuscular Volume 91 fL (80-97); Mean Platelet Volume 8.3 um3 (7.4-10.4); Nucleated Red Blood Cells % 0.1; Platelet Count 310 10^3/ul (150-450); Red Blood Count 3.79 10^6/ul (4.00-5.40); Red Cell Distribution Width 15 % (10.5-15); White Blood Count 12.5 10^3/ul (3.5-10.8)
[2018-05-06 06:39] LABS: INR 2.23 (0.77-1.02)
[2018-05-06 06:50] LABS: EGFR Non-African American 134.8 (>60)
[2018-05-06] MEDS: Albuterol HFA INHALER* 8 gm MDI INH PRN (08:15)
[2018-05-06] MEDS: predniSONE TAB* 20 MG PO SCH (08:52)
[2018-05-06] MEDS: Torsemide TAB* 20 MG PO SCH (08:52)
[2018-05-06] MEDS: Docusate CAP* 100 MG PO SCH ×2 (08:53→20:59)
[2018-05-06] MEDS: Digoxin TAB* 0.125 MG PO SCH (08:53)
[2018-05-06] MEDS: Bisoprolol TAB* 5 MG PO SCH ×2 (08:53→20:58)
[2018-05-06] MEDS: Diltiazem CD CAP* 180 MG PO SCH (08:53)
[2018-05-06] MEDS: Sodium Chloride TAB* 1 GM PO SCH (08:53)
[2018-05-06] MEDS: DOXYcycline CAP(*) 100 MG PO SCH ×2 (08:53→20:57)
[2018-05-06 12:19] LABS: Urine Appearance Clear; Urine Blood Negative (Negative); Urine Color Straw; Urine Ketones Negative (Negative); Urine Protein Negative (Negative); Urine Specific Gravity 1.005 (1.010-1.030); Urine Urobilinogen Negative (Negative)
[2018-05-06] MEDS: Calcium Carbonate CHEW TAB* 500 MG (TUMS) PO PRN (14:33)
[2018-05-06] MEDS: Warfarin TAB(*) 3 MG PO SCH (16:36)
--- NOTE | 2018-05-06 16:43 | PN ---
Subjective Date of Service: 05/06/18 Interval History: Pt seen and examined. Meds and labs reviewed. Pt feels better and mentions she is not on O2 at home. ROS: Denied ROBLERO/dizziness, F/C, N/V, CP, SOB, increased cough, sputum production , abd pain, diarrhea, constipation, dysuria, myalgias, arthralgias, throat pain , and new skin lesions. The rest of the 14 point ROS are unremarkable. PHYSICAL EXAM: GEN APPEARANCE: Awake, not in acute distress HEENT: NC/AT, PERRLA, moist oral mucosa, (-) throat erythema NECK: Soft, supple, (-) cervical LAD, (-)JVD HEART: S1S2 WNL, RRR, No MRG CHEST: Bibasal crackles, GAE, No W/R/R ABD: Soft, ND/NT, NABS 4x Q EXT: No C/C/E SKIN: Warm to touch PSYCH: No active psychosis, hallucinations, depression, SI/HI Objective Active Medications: Hydrocodone Bitart/Acetaminophen ([place] 5-325 Tab*) 1 tab PO DAILY PRN PRN Reason: PAIN Albuterol (Ventolin Hfa Inhaler*) 1 puff INH Q6H PRN PRN Reason: SOB/WHEEZING Last Admin: 05/06/18 08:15 Dose: 1 puff Albuterol/Ipratropium (Duoneb (Albuterol 2.5 Mg/Ipratropium 0.5 Mg)) 1 neb INH Q4H PRN PRN Reason: SOB/WHEEZING Bisoprolol Fumarate (Zebeta Tab*) 10 mg PO BID [facility] Last Admin: 05/06/18 08:53 Dose: 10 mg Calcium Carbonate (Tums*) 500 mg PO Q4H PRN PRN Reason: DYSPEPSIA Last Admin: 05/06/18 14:33 Dose: 500 mg Digoxin (Lanoxin Tab*) 0.125 mg PO QAM [facility] Last Admin: 05/06/18 08:53 Dose: 0.125 mg Diltiazem HCl (Cardizem Cd Cap*) 360 mg PO QAM [facility] Last Admin: 05/06/18 08:53 Dose: 360 mg Docusate Sodium (Colace Cap*) 100 mg PO BID [facility] Last Admin: 05/06/18 08:53 Dose: 100 mg Doxycycline Hyclate (Vibramycin Cap(*)) 100 mg PO BID [facility] Last Admin: 05/06/18 08:53 Dose: 100 mg Ceftriaxone Sodium 1 gm/ (Sodium Chloride) 50 mls @ 200 mls/hr IVPB Q24H [facility] Last Admin: 05/05/18 23:09 Dose: 200 mls/hr Mometasone Furoate/Formoterol Fumar (Dulera 100/5 Mdi*) 1 puff INH BID [facility] Last Admin: 05/06/18 08:16 Dose: 1 puff Omeprazole (Prilosec Cap*) 40 mg PO BEDTIME [facility] Last Admin: 05/05/18 23:09 Dose: 40 mg Polyethylene Glycol/Electrolytes (Miralax*) 17 gm PO DAILY PRN PRN Reason: CONSTIPATION Prednisone (Deltasone Tab*) 60 mg PO DAILY [facility] Last Admin: 05/06/18 08:52 Dose: 60 mg Senna (Senokot Tab*) 1 tab PO BEDTIME [facility] Torsemide (Demadex*) 20 mg PO QAM [facility] Last Admin: 05/06/18 08:52 Dose: 20 mg Warfarin Sodium (Coumadin Tab(*)) 3 mg PO SuMoWeFr@1700 [facility]; Protocol Last Admin: 05/05/18 23:08 Dose: 3 mg Warfarin Sodium (Coumadin Tab(*)) 4.5 mg PO TuThSa@1700 [facility]; Protocol Last Admin: 05/06/18 16:36 Dose: 4.5 mg Vital Signs - 8 hr 05/06/18 05/06/18 08:53 12:08 Temperature 97.5 F Pulse Rate 70 79 Respiratory 22 Rate Blood Pressure 109/44 (mmHg) O2 Sat by Pulse 98 Oximetry Oxygen Devices in Use Now: Nasal Cannula Result Diagrams: 05/06/18 06:18 05/06/18 06:18 Microbiology and Other Data: Microbiology 05/06/18 11:55 Legionella Urinary Antigen - Final Urine Negative Legionella Antigen Streptococcus pneumoniae Ag Screen - Final Negative S. pneumo Antigen Assess/Plan/Problems-Billing Assessment: - Patient Problems (1) Sepsis due to pneumonia Current Visit: Yes Status: Acute Code(s): J18.9 - PNEUMONIA, UNSPECIFIED ORGANISM; A41.9 - SEPSIS, UNSPECIFIED ORGANISM SNOMED Code(s): 53273297 Comment: -Continue Doxycycline -Currently on 3L of O2, which she is on at home -Sepsis resolved -(-) S. pneumoniae and Legionella urine Ags. (2) Atrial fibrillation Current Visit: No Status: Acute Code(s): I48.91 - UNSPECIFIED ATRIAL FIBRILLATION SNOMED Code(s): 35622723 Comment: -Continue with Warfarin, Digoxin, and Diltiazem (3) Diastolic CHF Current Visit: No Status: Acute Code(s): I50.30 - UNSPECIFIED DIASTOLIC ( CONGESTIVE) HEART FAILURE SNOMED Code(s): 304517036 Comment: -Compensated -Continue Torsemide -I am unclear why she is on Sodium tablets---we will D/C this as this is not appropriate treatment for SIADH nor hyponatremia due to CHF -Will continue to monitor Sodium levels (4) GERD (gastroesophageal reflux disease) Current Visit: Yes Status: Acute Code(s): K21.9 - GASTRO-ESOPHAGEAL REFLUX DISEASE WITHOUT ESOPHAGITIS SNOMED Code(s): 180903116 Comment: -Cotninue Omeprazole (5) Chronic pain Current Visit: Yes Status: Acute Code(s): G89.29 - OTHER CHRONIC PAIN SNOMED Code(s): 17616917 Comment: -Continue PRN Hydrocodone (6) DVT prophylaxis Current Visit: Yes Status: Acute Code(s): AAD1967 - SNOMED Code(s): 003850412 Comment: -Pt on therapeutic warfarin Status and Disposition: -For PT eval -Continue to follow cultures
[2018-05-06] MEDS: Omeprazole CAP* 20 MG PO SCH (20:57)
[2018-05-06] MEDS ORDERED: Warfarin TAB(*) 3 MG PO SCH (20:58)
[2018-05-06] MEDS: Senna TAB PO SCH (20:59)
[2018-05-06] MEDS: cefTRIAXone(*) 1 GM in NS 0.9% 50 ML* 50 ML IVPB SCH (22:28)
[2018-05-07] MEDS: HYDROcodone/ACETAMIN 5-325 MG* 1 TAB PO PRN (03:13)
[2018-05-07 06:36] LABS: Hematocrit 37 % (35-47); Hemoglobin 12.3 g/dl (12.0-16.0); Mean Corpuscular HGB Conc 34 g/dl (31-36); Mean Corpuscular Hemoglobin 31 pg (27-31); Mean Corpuscular Volume 91 fL (80-97); Mean Platelet Volume 8.3 um3 (7.4-10.4); Platelet Count 351 10^3/ul (150-450); Red Cell Distribution Width 16 % (10.5-15); White Blood Count 23.8 10^3/ul (3.5-10.8)
[2018-05-07 06:43] LABS: ABS Basophils 0 10^3/ul (0-0.2); ABS Eosinophils 0 10^3/ul (0-0.6); ABS Lymphocytes 1.2 10^3/ul (1.0-4.8); ABS Monocytes 1.5 10^3/ul (0-0.8); ABS Neutrophils 21.1 10^3/ul (1.5-7.7); ABS Nucleated RBC 0 10^3/ul; Eosinophil % 0.1 % (0-6); Lymphocyte % 4.8 % (25-47); Nucleated Red Blood Cells % 0
[2018-05-07 06:50] LABS: EGFR Non-African American 106.9 (>60)
[2018-05-07] MEDS: Torsemide TAB* 20 MG PO SCH (07:40)
[2018-05-07] MEDS: Bisoprolol TAB* 5 MG PO SCH ×2 (07:40→22:27)
[2018-05-07] MEDS: DOXYcycline CAP(*) 100 MG PO SCH ×2 (07:40→21:43)
[2018-05-07] MEDS: Diltiazem CD CAP* 180 MG PO SCH (07:41)
[2018-05-07] MEDS: predniSONE TAB* 20 MG PO SCH (07:41)
[2018-05-07] MEDS: Docusate CAP* 100 MG PO SCH ×2 (07:41→21:43)
[2018-05-07] MEDS: Digoxin TAB* 0.125 MG PO SCH (07:41)
[2018-05-07] MEDS: Mometasone/Formoter 100/5 MDI INH SCH ×2 (08:34→19:57)
[2018-05-07] MEDS: Albuterol HFA INHALER* 8 gm MDI INH PRN (08:34)
[2018-05-07] MEDS ORDERED: Potassium Chlor TAB* 20 MEQ TAB.ER PO STA (09:08)
[2018-05-07] MEDS ORDERED: Magnesium Sulfate IV* 2 GM in NS 0.9% 100 ML* 100 ML IV ONE (09:15)
[2018-05-07] MEDS ORDERED: Sodium Phosphate INJ* 15 MMOLE in NS 0.9% 250 ML* 250 ML IVPB ONE (09:30)
[2018-05-07 09:42] LABS: INR 3.08 (0.77-1.02)
--- NOTE | 2018-05-07 16:18 | PN ---
Subjective Date of Service: 05/07/18 Interval History: Pt seen and examined. Meds and labs reviewed. Pt requests to hold Lasix and salt tablets and to use diuretics only as needed or intermittent dosing. See discussion below. ROS: MENESES has improved. Denied ROBLERO/dizziness, F/C, N/V, CP, SOB, increased cough , sputum production, abd pain, diarrhea, constipation, dysuria, myalgias, arthralgias, throat pain, and new skin lesions. The rest of the 14 point ROS are unremarkable. PHYSICAL EXAM: GEN APPEARANCE: Awake, not in acute distress HEENT: NC/AT, PERRLA, moist oral mucosa, (-) throat erythema NECK: Soft, supple, (-) cervical LAD, (-)JVD HEART: S1S2 WNL, RRR, No MRG CHEST: CTA, BL, GAE, No W/R/R ABD: Soft, ND/NT, NABS 4x Q EXT: No C/C/E SKIN: Warm to touch PSYCH: No active psychosis, hallucinations, depression, SI/HI Objective Active Medications: Hydrocodone Bitart/Acetaminophen ([place] 5-325 Tab*) 1 tab PO DAILY PRN PRN Reason: PAIN Last Admin: 05/07/18 03:13 Dose: 1 tab Albuterol (Ventolin Hfa Inhaler*) 1 puff INH Q6H PRN PRN Reason: SOB/WHEEZING Last Admin: 05/07/18 08:34 Dose: 1 puff Albuterol/Ipratropium (Duoneb (Albuterol 2.5 Mg/Ipratropium 0.5 Mg)) 1 neb INH Q4H PRN PRN Reason: SOB/WHEEZING Bisoprolol Fumarate (Zebeta Tab*) 10 mg PO BID [facility] Last Admin: 05/07/18 07:40 Dose: 10 mg Calcium Carbonate (Tums*) 500 mg PO Q4H PRN PRN Reason: DYSPEPSIA Last Admin: 05/06/18 14:33 Dose: 500 mg Digoxin (Lanoxin Tab*) 0.125 mg PO QAM [facility] Last Admin: 05/07/18 07:41 Dose: 0.125 mg Diltiazem HCl (Cardizem Cd Cap*) 360 mg PO QAM [facility] Last Admin: 05/07/18 07:41 Dose: 360 mg Docusate Sodium (Colace Cap*) 100 mg PO BID [facility] Last Admin: 05/07/18 07:41 Dose: 100 mg Doxycycline Hyclate (Vibramycin Cap(*)) 100 mg PO BID [facility] Last Admin: 05/07/18 07:40 Dose: 100 mg Ceftriaxone Sodium 1 gm/ (Sodium Chloride) 50 mls @ 200 mls/hr IVPB Q24H [facility] Last Admin: 05/06/18 22:28 Dose: 200 mls/hr Mometasone Furoate/Formoterol Fumar (Dulera 100/5 Mdi*) 1 puff INH BID [facility] Last Admin: 05/07/18 08:34 Dose: 1 puff Omeprazole (Prilosec Cap*) 40 mg PO BEDTIME [facility] Last Admin: 05/06/18 20:57 Dose: 40 mg Polyethylene Glycol/Electrolytes (Miralax*) 17 gm PO DAILY PRN PRN Reason: CONSTIPATION Prednisone (Deltasone Tab*) 50 mg PO DAILY [facility] Senna (Senokot Tab*) 1 tab PO BEDTIME [facility] Last Admin: 05/06/18 20:59 Dose: Not Given Warfarin Sodium (Coumadin Tab(*)) 4.5 mg PO TuThSa@1700 [facility]; Protocol Last Admin: 05/06/18 16:36 Dose: 4.5 mg Warfarin Sodium (Coumadin Tab(*)) 3 mg PO SuMoWeFr@1700 [facility] Vital Signs - 8 hr 05/07/18 05/07/18 05/07/18 08:35 11:30 15:21 Temperature 97.7 F 97.5 F Pulse Rate 74 80 92 Respiratory 18 20 18 Rate Blood Pressure 108/56 105/44 (mmHg) O2 Sat by Pulse 94 100 100 Oximetry Oxygen Devices in Use Now: Nasal Cannula Result Diagrams: 05/07/18 06:02 05/07/18 06:02 Microbiology and Other Data: Microbiology 05/06/18 11:55 Legionella Urinary Antigen - Final Urine Negative Legionella Antigen Streptococcus pneumoniae Ag Screen - Final Negative S. pneumo Antigen Assess/Plan/Problems-Billing Assessment: - Patient Problems (1) Pneumonia Current Visit: Yes Status: Acute Code(s): J18.9 - PNEUMONIA, UNSPECIFIED ORGANISM SNOMED Code(s): 966006449 Comment: -Continue Doxycycline -Currently on 3L of O2, which she is on at home -(-) S. pneumoniae and Legionella urine Ags. -Blood culture (-) x1D (2) Metabolic alkalosis Current Visit: Yes Status: Acute Code(s): E87.3 - ALKALOSIS SNOMED Code(s) : 6397286 Comment: -Possibly due to posthypercapnia due to above -Will obtain O/N oximetry study and repeat ABG at 5 AM -Continue watchful waiting -May be due to contraction alkalosis as well given pt appears to be well compensated in terms of CHF and hence will D/C Torsemide; please see discussion below (3) Atrial fibrillation Current Visit: No Status: Acute Code(s): I48.91 - UNSPECIFIED ATRIAL FIBRILLATION SNOMED Code(s): 74557459 Comment: -Continue with Warfarin, Digoxin, and Diltiazem (4) Diastolic CHF Current Visit: No Status: Acute Code(s): I50.30 - UNSPECIFIED DIASTOLIC ( CONGESTIVE) HEART FAILURE SNOMED Code(s): 362560940 Comment: -Compensated -D/C Torsemide along with salt tablets and/or consider intermittent every other day dosing given sodium slightly decreased with d/c of sodium supplements--- this is appropriate given she may either have post-hypercapnic respiratory met alkalosis vs. contraction alkalosis as discussed above -Place pt on low sodium heart healthy diet -Will continue to monitor Sodium levels (5) GERD (gastroesophageal reflux disease) Current Visit: Yes Status: Acute Code(s): K21.9 - GASTRO-ESOPHAGEAL REFLUX DISEASE WITHOUT ESOPHAGITIS SNOMED Code(s): 685386924 Comment: -Cotninue Omeprazole (6) Chronic pain Current Visit: Yes Status: Acute Code(s): G89.29 - OTHER CHRONIC PAIN SNOMED Code(s): 17547368 Comment: -Continue PRN Hydrocodone (7) DVT prophylaxis Current Visit: Yes Status: Acute Code(s): TGL9812 - SNOMED Code(s): 770171776 Comment: -Pt on therapeutic warfarin Status and Disposition: -For possible D/C in 1-2 days -Continue to follow cultures
[2018-05-07] MEDS: Senna TAB PO SCH (21:43)
[2018-05-07] MEDS: Omeprazole CAP* 20 MG PO SCH (21:43)
[2018-05-07] MEDS: cefTRIAXone(*) 1 GM in NS 0.9% 50 ML* 50 ML IVPB SCH (21:47)
[2018-05-08] MEDS: HYDROcodone/ACETAMIN 5-325 MG* 1 TAB PO PRN (03:57)
[2018-05-08 07:09] LABS: ABS Basophils 0.1 10^3/ul (0-0.2); ABS Eosinophils 0.2 10^3/ul (0-0.6); ABS Lymphocytes 1.5 10^3/ul (1.0-4.8); ABS Monocytes 1.5 10^3/ul (0-0.8); ABS Neutrophils 14.7 10^3/ul (1.5-7.7); ABS Nucleated RBC 0 10^3/ul; Eosinophil % 0.9 % (0-6); Hematocrit 37 % (35-47); Hemoglobin 12.5 g/dl (12.0-16.0); Lymphocyte % 8.2 % (25-47); Mean Corpuscular HGB Conc 34 g/dl (31-36); Mean Corpuscular Hemoglobin 31 pg (27-31); Mean Corpuscular Volume 91 fL (80-97); Mean Platelet Volume 7.9 um3 (7.4-10.4); Nucleated Red Blood Cells % 0.1; Platelet Count 346 10^3/ul (150-450); Red Blood Count 4.05 10^6/ul (4.00-5.40); Red Cell Distribution Width 15 % (10.5-15); White Blood Count 17.9 10^3/ul (3.5-10.8)
[2018-05-08 07:26] LABS: EGFR Non-African American 102.6 (>60)
[2018-05-08] MEDS: Albuterol HFA INHALER* 8 gm MDI INH PRN ×2 (08:26→16:48)
[2018-05-08] MEDS: Mometasone/Formoter 100/5 MDI INH SCH ×2 (08:27→20:00)
[2018-05-08] MEDS ORDERED: Potassium Phosphate IV* 15 MMOLE in NS 0.9% 250 ML* 250 ML IVPB ONE (09:27)
[2018-05-08] MEDS ORDERED: Potassium Chlor TAB* 20 MEQ TAB.ER PO STA (09:27)
[2018-05-08] MEDS ORDERED: Magnesium Sulfate IV* 2 GM in NS 0.9% 100 ML* 100 ML IV ONE (09:27)
[2018-05-08] MEDS: Diltiazem CD CAP* 180 MG PO SCH (09:49)
[2018-05-08] MEDS: Digoxin TAB* 0.125 MG PO SCH (09:49)
[2018-05-08] MEDS: DOXYcycline CAP(*) 100 MG PO SCH ×2 (09:49→21:16)
[2018-05-08] MEDS: Docusate CAP* 100 MG PO SCH ×2 (09:49→21:15)
[2018-05-08] MEDS: predniSONE TAB* 50 MG PO SCH (09:50)
[2018-05-08] MEDS: Calcium Carbonate CHEW TAB* 500 MG (TUMS) PO PRN (10:04)
[2018-05-08] MEDS: Bisoprolol TAB* 5 MG PO SCH ×2 (11:20→21:16)
--- NOTE | 2018-05-08 15:19 | PN ---
Subjective Date of Service: 05/08/18 Interval History: Pt seen and examined. Meds and labs reviewed. ROS: Denied ROBLERO/dizziness, F/C, N/V, CP, SOB, increased cough, sputum production , abd pain, diarrhea, constipation, dysuria, myalgias, arthralgias, throat pain , and new skin lesions. The rest of the 14 point ROS are unremarkable. PHYSICAL EXAM: GEN APPEARANCE: Awake, not in acute distress HEENT: NC/AT, PERRLA, moist oral mucosa, (-) throat erythema NECK: Soft, supple, (-) cervical LAD, (-)JVD HEART: S1S2 WNL, RRR, No MRG CHEST: CTA, BL, GAE, No W/R/R ABD: Soft, ND/NT, NABS 4x Q EXT: No C/C/E SKIN: Warm to touch PSYCH: No active psychosis, hallucinations, depression, SI/HI Objective Active Medications: Hydrocodone Bitart/Acetaminophen ([place] 5-325 Tab*) 1 tab PO DAILY PRN PRN Reason: PAIN Last Admin: 05/08/18 03:57 Dose: 1 tab Albuterol (Ventolin Hfa Inhaler*) 1 puff INH Q6H PRN PRN Reason: SOB/WHEEZING Last Admin: 05/08/18 08:26 Dose: 1 puff Albuterol/Ipratropium (Duoneb (Albuterol 2.5 Mg/Ipratropium 0.5 Mg)) 1 neb INH Q4H PRN PRN Reason: SOB/WHEEZING Bisoprolol Fumarate (Zebeta Tab*) 10 mg PO BID [facility] Last Admin: 05/08/18 11:20 Dose: Not Given Calcium Carbonate (Tums*) 500 mg PO Q4H PRN PRN Reason: DYSPEPSIA Last Admin: 05/08/18 10:04 Dose: 500 mg Digoxin (Lanoxin Tab*) 0.125 mg PO QAM [facility] Last Admin: 05/08/18 09:49 Dose: 0.125 mg Diltiazem HCl (Cardizem Cd Cap*) 360 mg PO QAM [facility] Last Admin: 05/08/18 09:49 Dose: 360 mg Docusate Sodium (Colace Cap*) 100 mg PO BID [facility] Last Admin: 05/08/18 09:49 Dose: 100 mg Doxycycline Hyclate (Vibramycin Cap(*)) 100 mg PO BID [facility] Last Admin: 05/08/18 09:49 Dose: 100 mg Ceftriaxone Sodium 1 gm/ (Sodium Chloride) 50 mls @ 200 mls/hr IVPB Q24H [facility] Last Admin: 05/07/18 21:47 Dose: 200 mls/hr Potassium Phosphate 15 mmole/ (Sodium Chloride) 255 mls @ 42 mls/hr IVPB ONCE ONE Stop: 05/08/18 15:31 Last Admin: 05/08/18 11:23 Dose: 42 mls/hr Mometasone Furoate/Formoterol Fumar (Dulera 100/5 Mdi*) 1 puff INH BID [facility] Last Admin: 05/08/18 08:27 Dose: 1 puff Omeprazole (Prilosec Cap*) 40 mg PO BEDTIME [facility] Last Admin: 05/07/18 21:43 Dose: 40 mg Polyethylene Glycol/Electrolytes (Miralax*) 17 gm PO DAILY PRN PRN Reason: CONSTIPATION Prednisone (Deltasone Tab*) 50 mg PO DAILY [facility] Last Admin: 05/08/18 09:50 Dose: 50 mg Senna (Senokot Tab*) 1 tab PO BEDTIME [facility] Last Admin: 05/07/18 21:43 Dose: 1 tab Warfarin Sodium (Coumadin Tab(*)) 4.5 mg PO TuThSa@1700 [facility]; Protocol Last Admin: 05/06/18 16:36 Dose: 4.5 mg Warfarin Sodium (Coumadin Tab(*)) 3 mg PO SuMoWeFr@1700 [facility] Vital Signs - 8 hr 05/08/18 05/08/18 05/08/18 07:37 08:00 08:27 Temperature 97.4 F Pulse Rate 44 72 Respiratory 20 16 16 Rate Blood Pressure 95/52 (mmHg) O2 Sat by Pulse 100 96 Oximetry 05/08/18 09:49 Temperature Pulse Rate 72 Respiratory Rate Blood Pressure (mmHg) O2 Sat by Pulse Oximetry Oxygen Devices in Use Now: Nasal Cannula Result Diagrams: 05/08/18 07:00 05/08/18 07:00 Microbiology and Other Data: Microbiology 05/06/18 11:55 Legionella Urinary Antigen - Final Urine Negative Legionella Antigen Streptococcus pneumoniae Ag Screen - Final Negative S. pneumo Antigen Assess/Plan/Problems-Billing Assessment: - Patient Problems (1) Pneumonia Current Visit: Yes Status: Acute Code(s): J18.9 - PNEUMONIA, UNSPECIFIED ORGANISM SNOMED Code(s): 520885493 Comment: -Continue Doxycycline Day #12/31 -Currently on 3L of O2, which she is on at home -(-) S. pneumoniae and Legionella urine Ags. -Blood culture (-) x2D (2) Metabolic alkalosis Current Visit: Yes Status: Acute Code(s): E87.3 - ALKALOSIS SNOMED Code(s) : 5315096 Comment: -Possibly due to post-hypercapnia due to intermittent hypoxia when asleep vs. contraction alkalosis -Some desaturation last night during O/N oximetry study; Will repeat study with the caveat to titrate O2 needs to see minimal needed O2 level need to consistently prevent hypoxia -ABG this AM reveals fully compensated metabolic alkalosis, to differentiate from above, will order urine chloride -For Ambulatory sats in AM -Continue watchful waiting (3) Diastolic CHF Current Visit: No Status: Acute Code(s): I50.30 - UNSPECIFIED DIASTOLIC ( CONGESTIVE) HEART FAILURE SNOMED Code(s): 474747435 Comment: -Compensated -Hyponatremia improved with D/C of diuretics and salt tabs -Pt requests if she can take PRN diuretics instead of scheduled given she also cannot tolerate PO salt tabs; given pt is aware of her body and the effects of her medications, I think it is appropriate given her well compensated diastolic CHF that 1-3 diuretics dosing per week with PRN additional doses is appropriate ; she is intelligent enough to do so and very compliant; more so if contraction alkalosis is in the differential -Place pt on low sodium heart healthy diet -Will continue to monitor Sodium levels (4) Atrial fibrillation Current Visit: No Status: Acute Code(s): I48.91 - UNSPECIFIED ATRIAL FIBRILLATION SNOMED Code(s): 64695079 Comment: -Continue with Warfarin, Digoxin, and Diltiazem (5) GERD (gastroesophageal reflux disease) Current Visit: Yes Status: Acute Code(s): K21.9 - GASTRO-ESOPHAGEAL REFLUX DISEASE WITHOUT ESOPHAGITIS SNOMED Code(s): 375840452 Comment: -Cotninue Omeprazole (6) Chronic pain Current Visit: Yes Status: Acute Code(s): G89.29 - OTHER CHRONIC PAIN SNOMED Code(s): 80107714 Comment: -Continue PRN Hydrocodone (7) DVT prophylaxis Current Visit: Yes Status: Acute Code(s): PXT3397 - SNOMED Code(s): 245871922 Comment: -Pt on therapeutic warfarin Status and Disposition: -For possible D/C in 1-2 days -Will repeat O/N oximetry study to titrate O2 to prevent hypoxia -For ambulatory saturation in AM -Continue to follow cultures
[2018-05-08 17:40] LABS: INR 3.08 (0.77-1.02)
[2018-05-08] MEDS: Warfarin TAB(*) 3 MG PO SCH (17:50)
[2018-05-08] MEDS: Omeprazole CAP* 20 MG PO SCH (21:15)
[2018-05-08] MEDS: Senna TAB PO SCH (21:16)
[2018-05-08] MEDS: cefTRIAXone(*) 1 GM in NS 0.9% 50 ML* 50 ML IVPB SCH (21:22)
[2018-05-09] MEDS: HYDROcodone/ACETAMIN 5-325 MG* 1 TAB PO PRN (02:08)
[2018-05-09] MEDS: Albuterol HFA INHALER* 8 gm MDI INH PRN (05:53)
[2018-05-09 06:40] LABS: Hematocrit 35 % (35-47); Hemoglobin 11.9 g/dl (12.0-16.0); Mean Corpuscular HGB Conc 34 g/dl (31-36); Mean Corpuscular Hemoglobin 31 pg (27-31); Mean Corpuscular Volume 92 fL (80-97); Mean Platelet Volume 8.1 um3 (7.4-10.4); Platelet Count 323 10^3/ul (150-450); Red Blood Count 3.87 10^6/ul (4.00-5.40); Red Cell Distribution Width 15 % (10.5-15); White Blood Count 15.6 10^3/ul (3.5-10.8)
[2018-05-09 06:45] LABS: INR 2.26 (0.77-1.02)
[2018-05-09 06:58] LABS: EGFR Non-African American 128.2 (>60)
[2018-05-09] MEDS: Mometasone/Formoter 100/5 MDI INH SCH ×2 (08:09→20:42)
[2018-05-09] MEDS: Bisoprolol TAB* 5 MG PO SCH ×3 (09:37→20:05)
[2018-05-09] MEDS: Docusate CAP* 100 MG PO SCH ×2 (09:38→20:05)
[2018-05-09] MEDS: predniSONE TAB* 50 MG PO SCH (09:38)
[2018-05-09] MEDS: Digoxin TAB* 0.125 MG PO SCH (09:38)
[2018-05-09] MEDS: Diltiazem CD CAP* 180 MG PO SCH (09:38)
[2018-05-09] MEDS: DOXYcycline CAP(*) 100 MG PO SCH ×2 (09:38→20:05)
[2018-05-09] MEDS ORDERED: Albuterol HFA INHALER* 8 gm MDI INH PRN (10:41)
[2018-05-09] MEDS ORDERED: Potassium Phosphate IV* 15 MMOLE in NS 0.9% 250 ML* 250 ML IVPB ONE (10:44)
--- NOTE | 2018-05-09 10:51 | PN ---
Subjective Date of Service: 05/09/18 Interval History: Pt is feeling poorly today. She states she is more SOB today than she has been the last couple days. She also states her head is "swirling." She has been coughing but not really bringing up any sputum. Objective Active Medications: Hydrocodone Bitart/Acetaminophen ([place] 5-325 Tab*) 1 tab PO DAILY PRN PRN Reason: PAIN Last Admin: 05/09/18 02:08 Dose: 1 tab Albuterol (Ventolin Hfa Inhaler*) 2 puff INH Q4H PRN PRN Reason: SOB/WHEEZING Albuterol/Ipratropium (Duoneb (Albuterol 2.5 Mg/Ipratropium 0.5 Mg)) 1 neb INH [id number] AWAKE [facility] Bisoprolol Fumarate (Zebeta Tab*) 2.5 mg PO BID [facility] Last Admin: 05/09/18 09:37 Dose: 2.5 mg Calcium Carbonate (Tums*) 500 mg PO Q4H PRN PRN Reason: DYSPEPSIA Last Admin: 05/08/18 10:04 Dose: 500 mg Digoxin (Lanoxin Tab*) 0.125 mg PO QAM [facility] Last Admin: 05/09/18 09:38 Dose: 0.125 mg Diltiazem HCl (Cardizem Cd Cap*) 360 mg PO QAM [facility] Last Admin: 05/09/18 09:38 Dose: 360 mg Docusate Sodium (Colace Cap*) 100 mg PO BID [facility] Last Admin: 05/09/18 09:38 Dose: 100 mg Doxycycline Hyclate (Vibramycin Cap(*)) 100 mg PO BID [facility] Last Admin: 05/09/18 09:38 Dose: 100 mg Guaifenesin (Mucinex*) 600 mg PO BID [facility] Ceftriaxone Sodium 1 gm/ (Sodium Chloride) 50 mls @ 200 mls/hr IVPB Q24H [facility] Last Admin: 05/08/18 21:22 Dose: 200 mls/hr Potassium Phosphate 15 mmole/ (Sodium Chloride) 255 mls @ 42 mls/hr IVPB ONCE ONE Stop: 05/09/18 16:48 Mometasone Furoate/Formoterol Fumar (Dulera 100/5 Mdi*) 1 puff INH BID [facility] Last Admin: 05/09/18 08:09 Dose: 1 puff Omeprazole (Prilosec Cap*) 40 mg PO BEDTIME [facility] Last Admin: 05/08/18 21:15 Dose: 40 mg Polyethylene Glycol/Electrolytes (Miralax*) 17 gm PO DAILY [facility] Prednisone (Deltasone Tab*) 50 mg PO DAILY [facility] Last Admin: 05/09/18 09:38 Dose: 50 mg Senna (Senokot Tab*) 1 tab PO BEDTIME [facility] Last Admin: 05/08/18 21:16 Dose: 1 tab Warfarin Sodium (Coumadin Tab(*)) 4.5 mg PO TuThSa@1700 [facility]; Protocol Last Admin: 05/06/18 16:36 Dose: 4.5 mg Warfarin Sodium (Coumadin Tab(*)) 3 mg PO SuMoWeFr@1700 [facility] Last Admin: 05/08/18 17:50 Dose: Not Given Vital Signs - 8 hr 05/09/18 05/09/18 05/09/18 03:22 05:45 05:53 Temperature 97.7 F Pulse Rate 60 89 Respiratory 16 17 Rate Blood Pressure 107/54 (mmHg) O2 Sat by Pulse 95 98 Oximetry 05/09/18 05/09/18 07:16 08:12 Temperature 97.9 F Pulse Rate 100 68 Respiratory 18 20 Rate Blood Pressure 113/66 (mmHg) O2 Sat by Pulse 100 99 Oximetry Oxygen Devices in Use Now: Nasal Cannula Appearance: Elderly female sitting up in bed, NAD Eyes: No Scleral Icterus Ears/Nose/Mouth/Throat: Mucous Membranes Moist Respiratory: Symmetrical Chest Expansion and Respiratory Effort, - - markedly diminished breath sounds in L lung about 1/[address] way up, and R lung 2/[address] way up; very weak cough Cardiovascular: NL Sounds; No Murmurs; No JVD, No Edema, - - irregularly irregular, controlled rate Abdominal: NL Sounds; No Tenderness; No Distention Extremities: No Clubbing, Cyanosis Skin: No Nodules or Sclerosis Neurological: Alert and Oriented x 3 Result Diagrams: 05/09/18 06:18 05/09/18 06:18 Microbiology and Other Data: Microbiology 05/06/18 11:55 Legionella Urinary Antigen - Final Urine Negative Legionella Antigen Streptococcus pneumoniae Ag Screen - Final Negative S. pneumo Antigen Assess/Plan/Problems-Billing Ms Magana is a 77 yo F who has a h/o COPD with chronic hypoxic respiratory failure requiring 3L O2 continuously, chronic diastolic CHF, HTN, atrial fibrillation and SIADH who presented to the ER with c/o SOB and was admitted for possible pneumonia. - Patient Problems (1) Pneumonia Current Visit: Yes Status: Acute Code(s): J18.9 - PNEUMONIA, UNSPECIFIED ORGANISM SNOMED Code(s): 604722159 Comment: The patient was recently treated with doxycycline as outpatient and now is back on doxy and ceftriaxone. Today is D#5/7. Her WBC count is trending down. Will recheck CRP and check procalcitonin. Check pCXR. (2) COPD (chronic obstructive pulmonary disease) Current Visit: Yes Status: Chronic Code(s): J44.9 - CHRONIC OBSTRUCTIVE PULMONARY DISEASE, UNSPECIFIED SNOMED Code(s): 53171211 Comment: Pt is markedly limited by her respiratory status. She will be started on standing nebs and mucinex to see if that helps loosen her mucous. Continue dulera. (3) Metabolic alkalosis Current Visit: Yes Status: Acute Code(s): E87.3 - ALKALOSIS SNOMED Code(s) : 1911932 Comment: ? secondary contraction alkalosis vs underlying lung disease. Pt does not desaturate significantly while sleeping on her usual 3L O2. Continue to follow. (4) Diastolic CHF Current Visit: Yes Status: Acute Code(s): I50.30 - UNSPECIFIED DIASTOLIC ( CONGESTIVE) HEART FAILURE SNOMED Code(s): 063450590 Comment: Euvolemic. Standing diuretic held. To be used prn for edema/weight gain. (5) Hypertension Current Visit: Yes Status: Chronic Code(s): I10 - ESSENTIAL (PRIMARY) HYPERTENSION SNOMED Code(s): 36971305 Comment: Bisoprolol reduced to 2.5mg BID. Continue current dose of diltiazem. Monitor BP-it has been low. (6) Atrial fibrillation Current Visit: Yes Status: Acute Code(s): I48.91 - UNSPECIFIED ATRIAL FIBRILLATION SNOMED Code(s): 78586297 Comment: HR is controlled. Continue digoxin, diltiazem, bisoprolol and coumadin. (7) Chronic pain Current Visit: Yes Status: Acute Code(s): G89.29 - OTHER CHRONIC PAIN SNOMED Code(s): 68487676 Comment: Continue prn norco. (8) GERD (gastroesophageal reflux disease) Current Visit: Yes Status: Acute Code(s): K21.9 - GASTRO-ESOPHAGEAL REFLUX DISEASE WITHOUT ESOPHAGITIS SNOMED Code(s): 877191847 Comment: Continue omeprazole (9) DVT prophylaxis Current Visit: Yes Status: Acute Code(s): BNK6664 - SNOMED Code(s): 129011813 Comment: Coumadin (10) DNR (do not resuscitate) Current Visit: Yes Status: Acute Status and Disposition: .
[2018-05-09] MEDS: Albuterol/Ipratropium NEB.SOL* Albuterol 2.5 MG/Ipratropium 0.5 MG 3 ML INH SCH ×4 (11:25→22:42)
[2018-05-09] MEDS: guaiFENesin ER TAB 600 MG PO SCH ×2 (12:29→20:05)
--- NOTE | 2018-05-09 13:26 | RAD ---
Indication: Follow-up pneumonia. Single frontal view of the chest performed at 1105 hours was reviewed. Comparison is made with previous exam dated May 05, 2018. No mediastinal shift is noted. Heart is of normal size and configuration. Bilateral pleural effusions are noted. There is suggestion of enlarged melissa bilaterally. Interstitial prominence and patchy infiltrates are noted especially in the left base which is unchanged. IMPRESSION: NO SIGNIFICANT CHANGE SINCE PREVIOUS EXAM WITH BILATERAL PLEURAL EFFUSION AND PROBABLE EARLY INFILTRATES IN THE LEFT BASE. THE MELISSA APPEAR TO BE ENLARGED BILATERALLY. PACEMAKER LEADS ARE IN PLACE.
[2018-05-09] MEDS: Warfarin TAB(*) 3 MG PO SCH (17:22)
[2018-05-09] MEDS: Nystatin SUSPENSION* 100000 UNITS/ML 5 ML UDC PO SCH ×2 (20:05→23:13)
[2018-05-09] MEDS: Omeprazole CAP* 20 MG PO SCH (20:05)
[2018-05-09] MEDS: Senna TAB PO SCH (20:05)
[2018-05-09] MEDS: cefTRIAXone(*) 1 GM in NS 0.9% 50 ML* 50 ML IVPB SCH (23:13)
[2018-05-10] MEDS: Albuterol/Ipratropium NEB.SOL* Albuterol 2.5 MG/Ipratropium 0.5 MG 3 ML INH SCH ×5 (03:28→19:33)
[2018-05-10] MEDS: HYDROcodone/ACETAMIN 5-325 MG* 1 TAB PO PRN (03:44)
[2018-05-10 06:11] LABS: Hematocrit 35 % (35-47); Hemoglobin 11.7 g/dl (12.0-16.0); Mean Corpuscular HGB Conc 33 g/dl (31-36); Mean Corpuscular Hemoglobin 31 pg (27-31); Mean Corpuscular Volume 92 fL (80-97); Mean Platelet Volume 8.1 um3 (7.4-10.4); Platelet Count 320 10^3/ul (150-450); Red Blood Count 3.82 10^6/ul (4.00-5.40); Red Cell Distribution Width 15 % (10.5-15); White Blood Count 15.8 10^3/ul (3.5-10.8)
[2018-05-10 06:30] LABS: EGFR Non-African American 131.4 (>60)
[2018-05-10] MEDS: Mometasone/Formoter 100/5 MDI INH SCH ×2 (08:11→19:33)
[2018-05-10] MEDS: Polyethylene Glycol 3350* 17 GM PACKET PO SCH (09:04)
[2018-05-10] MEDS: Bisoprolol TAB* 5 MG PO SCH ×2 (09:05→20:43)
[2018-05-10] MEDS: Digoxin TAB* 0.125 MG PO SCH (09:06)
[2018-05-10] MEDS: DOXYcycline CAP(*) 100 MG PO SCH ×2 (09:06→20:39)
[2018-05-10] MEDS: Docusate CAP* 100 MG PO SCH ×2 (09:07→20:39)
[2018-05-10] MEDS: predniSONE TAB* 50 MG PO SCH (09:07)
[2018-05-10] MEDS: guaiFENesin ER TAB 600 MG PO SCH ×2 (09:07→20:40)
[2018-05-10] MEDS: Diltiazem CD CAP* 180 MG PO SCH (09:07)
[2018-05-10] MEDS: Nystatin SUSPENSION* 100000 UNITS/ML 5 ML UDC PO SCH ×4 (09:09→20:46)
--- NOTE | 2018-05-10 15:00 | RAD ---
INDICATION: Interstitial pulmonary fibrosis COMPARISON: Chest x-ray May 09, 2018; CT chest April 14, 2018 TECHNIQUE: Noncontrast axial source images were obtained from the thoracic inlet to the hemidiaphragms. Coronal and sagittal reconstructed images were acquired. The visualized neck to include the thyroid appear normal. Chest wall: There are no acute abnormalities of the bony thorax or chest wall. There is no supraclavicular, infraclavicular, or axillary lymphadenopathy. Lungs : There is advanced emphysematous changes with findings suggestive of interstitial pulmonary fibrosis. There are additional areas of parenchymal nodularity which appear little changed. There is peribronchial thickening in the lung bases. Cardiomediastinal structures: The heart is mildly enlarged. There is pacemaker artifact. The pulmonary arteries are prominent consistent with pulmonary arterial hypertension. This extensive, confluent adenopathy as described previously, unchanged. Pleura : Moderate-sized left-sided pleural effusion, unchanged. Other: Mild prominent epicardial lymph node, unchanged. IMPRESSION: 1. EXTENSIVE MEDIASTINAL adenopathy WITHOUT APPRECIABLE CHANGE. 2. PULMONARY PARENCHYMAL OPACITIES REMAIN INDETERMINATE AND MAY BE NEOPLASTIC OR INFLAMMATORY. 3. ADVANCED EMPHYSEMATOUS CHANGES. PERIBRONCHIAL THICKENING. 4. STABLE LEFT-SIDED PLEURAL EFFUSION.
--- NOTE | 2018-05-10 15:41 | PN ---
Subjective Date of Service: 05/10/18 Interval History: Feels "okay" today. Doesn't think she is back to baseline. No pain, has been walking to the bathroom with the walker without difficulty. Family History: Unchanged from Admission Social History: Unchanged from Admission Past Medical History: Unchanged from Admission Objective Active Medications: Hydrocodone Bitart/Acetaminophen ([place] 5-325 Tab*) 1 tab PO DAILY PRN PRN Reason: PAIN Last Admin: 05/10/18 03:44 Dose: 1 tab Albuterol (Ventolin Hfa Inhaler*) 2 puff INH Q4H PRN PRN Reason: SOB/WHEEZING Albuterol/Ipratropium (Duoneb (Albuterol 2.5 Mg/Ipratropium 0.5 Mg)) 1 neb INH [id number] AWAKE [facility] Last Admin: 05/10/18 11:19 Dose: 1 neb Bisoprolol Fumarate (Zebeta Tab*) 2.5 mg PO BID [facility] Last Admin: 05/10/18 09:05 Dose: 2.5 mg Calcium Carbonate (Tums*) 500 mg PO Q4H PRN PRN Reason: DYSPEPSIA Last Admin: 05/08/18 10:04 Dose: 500 mg Digoxin (Lanoxin Tab*) 0.125 mg PO QAM [facility] Last Admin: 05/10/18 09:06 Dose: 0.125 mg Diltiazem HCl (Cardizem Cd Cap*) 360 mg PO QAM [facility] Last Admin: 05/10/18 09:07 Dose: 360 mg Docusate Sodium (Colace Cap*) 100 mg PO BID [facility] Last Admin: 05/10/18 09:07 Dose: 100 mg Doxycycline Hyclate (Vibramycin Cap(*)) 100 mg PO BID [facility] Last Admin: 05/10/18 09:06 Dose: 100 mg Guaifenesin (Mucinex*) 600 mg PO BID [facility] Last Admin: 05/10/18 09:07 Dose: 600 mg Ceftriaxone Sodium 1 gm/ (Sodium Chloride) 50 mls @ 200 mls/hr IVPB Q24H [facility] Last Admin: 05/09/18 23:13 Dose: 200 mls/hr Mometasone Furoate/Formoterol Fumar (Dulera 100/5 Mdi*) 1 puff INH BID [facility] Last Admin: 05/10/18 08:11 Dose: 1 puff Nystatin (Nystatin Suspension*) 200,000 units PO QID [facility] Last Admin: 05/10/18 14:05 Dose: 200,000 units Omeprazole (Prilosec Cap*) 40 mg PO BEDTIME [facility] Last Admin: 05/09/18 20:05 Dose: 40 mg Polyethylene Glycol/Electrolytes (Miralax*) 17 gm PO DAILY [facility] Last Admin: 05/10/18 09:04 Dose: 17 gm Prednisone (Deltasone Tab*) 50 mg PO DAILY [facility] Last Admin: 05/10/18 09:07 Dose: 50 mg Senna (Senokot Tab*) 1 tab PO BEDTIME [facility] Last Admin: 05/09/18 20:05 Dose: 1 tab Warfarin Sodium (Coumadin Tab(*)) 4.5 mg PO TuThSa@1700 [facility]; Protocol Last Admin: 05/09/18 17:22 Dose: 4.5 mg Warfarin Sodium (Coumadin Tab(*)) 3 mg PO SuMoWeFr@1700 [facility] Last Admin: 05/08/18 17:50 Dose: Not Given Vital Signs - 8 hr 05/10/18 05/10/18 05/10/18 08:00 08:10 08:56 Temperature Pulse Rate 104 Respiratory 18 17 Rate Blood Pressure 118/52 (mmHg) O2 Sat by Pulse 99 Oximetry 05/10/18 05/10/18 05/10/18 09:06 11:19 11:32 Temperature 97.5 F Pulse Rate 96 68 90 Respiratory 18 Rate Blood Pressure 114/63 (mmHg) O2 Sat by Pulse 98 100 Oximetry Oxygen Devices in Use Now: Nasal Cannula Appearance: alert, sitting up in bed eating lunch Eyes: No Scleral Icterus Ears/Nose/Mouth/Throat: NL Teeth, Lips, Gums Neck: NL Appearance and Movements; NL JVP Respiratory: - - dry crackles, distant breath sounds Cardiovascular: NL Sounds; No Murmurs; No JVD, RRR Abdominal: NL Sounds; No Tenderness; No Distention Lymphatic: No Cervical Adenopathy Extremities: No Edema Skin: No Rash or Ulcers Neurological: Alert and Oriented x 3 Result Diagrams: 05/10/18 05:51 05/10/18 05:51 Microbiology and Other Data: Microbiology 05/06/18 11:55 Legionella Urinary Antigen - Final Urine Negative Legionella Antigen Streptococcus pneumoniae Ag Screen - Final Negative S. pneumo Antigen Assess/Plan/Problems-Billing Ms Magana is a 77 yo F who has a h/o COPD with chronic hypoxic respiratory failure requiring 3L O2 continuously, chronic diastolic CHF, HTN, atrial fibrillation and SIADH who presented to the ER with c/o SOB and was admitted for possible pneumonia. - Patient Problems (1) Interstitial lung disease Current Visit: Yes Status: Acute Code(s): J84.9 - INTERSTITIAL PULMONARY DISEASE, UNSPECIFIED SNOMED Code(s): 261471621 Comment: being worked up by Yina as an outpatient; initial bronchoscopy was negative check CT chest today consult Dr. Bran today to see if she needs a repeat bronchoscopy for biopsy/ ebus or evaluation of worsening of disease stable o2 requirement (2) Atrial fibrillation Current Visit: Yes Status: Acute Code(s): I48.91 - UNSPECIFIED ATRIAL FIBRILLATION SNOMED Code(s): 48148212 Comment: HR is controlled. Continue digoxin, diltiazem, bisoprolol and coumadin. (3) Metabolic alkalosis Current Visit: Yes Status: Acute Code(s): E87.3 - ALKALOSIS SNOMED Code(s) : 6463220 Comment: likely metabolic compensation related to chronic co2 retention (4) COPD (chronic obstructive pulmonary disease) Current Visit: Yes Status: Chronic Code(s): J44.9 - CHRONIC OBSTRUCTIVE PULMONARY DISEASE, UNSPECIFIED SNOMED Code(s): 78514998 Comment: Pt is markedly limited by her respiratory status functionally. Continue dulera. (5) Hyponatremia Current Visit: No Status: Acute Code(s): E87.1 - HYPO-OSMOLALITY AND HYPONATREMIA SNOMED Code(s): 64517955 Comment: stable, chronic, and likely related to ongoing lung disease (6) Mediastinal adenopathy Current Visit: No Status: Acute Code(s): R59.0 - LOCALIZED ENLARGED LYMPH NODES SNOMED Code(s): 95967710 Comment: consult Yina as above for possible repeat bronchoscopy (7) DNR (do not resuscitate) Current Visit: Yes Status: Acute Status and Disposition: .
[2018-05-10] MEDS: Warfarin TAB(*) 3 MG PO SCH (17:40)
[2018-05-10] MEDS: Omeprazole CAP* 20 MG PO SCH (20:39)
[2018-05-10] MEDS: Senna TAB PO SCH (20:39)
--- NOTE | 2018-05-10 21:19 | CONS ---
PULMONARY CONSULTATION REPORT: DATE OF CONSULT: 05/10/18 CONSULTATION REQUESTED BY: Flavia Martinez DO HISTORY OF PRESENT ILLNESS: The patient is a 77-year-old female, former smoker with history of significant COPD, on home O2 at 3 L per minute, bronchiectasis, known to me from prior inpatient and outpatient evaluation. The patient also is being evaluated for significant mediastinal adenopathy, pleural effusion, underwent thoracentesis with no evidence of malignancy. The patient also underwent bronchoscopy with endobronchial biopsy, lymph node sampling was negative for malignancy. The patient continued to have dense lymphadenopathy, still concerning for malignancy in spite of negative EBUS. I have discussed repeat EBUS as she is high risk for mediastinoscopy as there are false negatives that are expected with EBUS sampling. The patient preferred to wait and have a repeat CT scan done prior to endobronchial biopsy to be repeated. The patient also was given option of having a lung biopsy; however, she is definitely at greater risk for pneumothorax with lung biopsy. I have also given option for navigational bronchoscopy. The patient opted for waitful watching and to undergo repeat bronchoscopy. She also has history of hyponatremia. She was on hydrochlorothiazide in the past, which was discontinued. The patient recently was started on tapering doses of prednisone and continued on maintenance dose. She was also treated recently for possible pneumonia most likely postobstructive from dense lymphadenopathy. Hyponatremia has resolved currently. She presented to the emergency room for evaluation of worsening shortness of breath that is worse than her baseline. The patient also reports chronic cough with sputum production that has not changed significantly. The patient reports feeling better this morning. She is hopeful that the CT scan would show shrinking of the lymph node, so she would not have to undergo repeat biopsy. She is aware of possible risk of malignancy and prior progression of malignancy with this approach. The patient is currently being treated for acute COPD exacerbation. She was started on high dose prednisone, bronchodilators, antibiotics. The patient to undergo repeat CT scan. PAST MEDICAL HISTORY: 1. History of SIADH. 2. Low risk stress test in January 2018. 3. 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 4. Atrial fibrillation, on chronic Coumadin therapy. 5. COPD, on 3 L nasal cannula. 6. GERD. 7. Chronic pain. 8. Diastolic heart failure. 9. Hypertension. MEDICATIONS: 1. Combivent. 2. Prednisone. 3. Albuterol. 4. Bisoprolol. 5. Digoxin. 6. Diltiazem. 7. Fluticasone. 8. Hydrocortisone. 9. Acetaminophen. 10. Omeprazole. 11. Sodium chloride. 12. Torsemide. 13. Warfarin. ALLERGIES TO MEDICATIONS: LEVOFLOXACIN, AMOXICILLIN, CLAVULANIC ACID. FAMILY HISTORY: Mother related to old age. Father secondary to bone cancer. SOCIAL HISTORY: Former smoker. Significant smoking history, quit a few years ago. She lives alone. She has children, 2 sons who are involved in her care. REVIEW OF SYSTEMS: All 14 systems reviewed and as per HPI. PHYSICAL EXAM: The patient is sitting up in bed, in no apparent distress. Vital Signs: Temperature 97.5, pulse 90 beats per minute, respiratory rate 18 per minute, O2 sat 100% on 2 L, blood pressure 114/63. HEENT: Pupils are equal and reactive to light. Mucous membranes moist. Lungs: Diminished air entry bilaterally. No significant wheeze on auscultation. Cardiovascular: S1 and S2 present, regular. Abdomen: Soft, nontender, nondistended. Bowel sounds present. Extremities: Normal range of motion. Skin: No rash or bruises. Neuro: No focal deficits. LABORATORY DATA: WBC count 15.8, coming down from 19 and 23; hemoglobin 11.7; hematocrit 35; platelet count normal at 320,000. Blood gas analysis from showed evidence of metabolic alkalosis as a compensation for underlying respiratory acidosis. Sodium 135, potassium 4.0, chloride 91, bicarb 40, BUN 12 , creatinine 0.46. Procalcitonin less than 0.1. Digoxin 1.4. IMAGING: Chest x-ray was personally reviewed by me. The patient with evidence of hilar fullness, air space opacity at the left base which is unchanged from before. The patient also noted to have bilateral pleural effusions. CT scan is ordered and is pending at this time. IMPRESSION AND RECOMMENDATIONS: 77-year-old female with history of severe chronic obstructive pulmonary disease, O2 dependent, significant smoking history with evidence of dense lymphadenopathy and lung nodule concerning for malignancy, negative thoracentesis in the past, negative bronchoscopy and EBUS in the past. The patient with recurrent admissions for pneumonia/ bronchitis likely secondary to inspissated secretions and bronchiectasis exacerbation. The patient improving with antibiotics. CT chest was just performed. I have personally reviewed the images. The patient continues to have extensive mediastinal adenopathy without appreciable change from prior CT scan. The patient with significant advanced emphysematous changes and evidence of fibrotic changes. The patient with evidence of nodular opacities bilaterally. The patient with moderate size left pleural effusion that is unchanged from before. She will need repeat biopsy since this is concerning for malignancy. Discussed in detail with pt today Thank you for allowing me to participate in the care of your patient. Will follow up with you. [id number]/[facility] #: [id number] ELVIS
[2018-05-10] MEDS: cefTRIAXone(*) 1 GM in NS 0.9% 50 ML* 50 ML IVPB SCH (22:15)
[2018-05-11] MEDS: Albuterol/Ipratropium NEB.SOL* Albuterol 2.5 MG/Ipratropium 0.5 MG 3 ML INH SCH ×4 (00:29→11:34)
[2018-05-11 06:30] LABS: INR 2.3 (0.77-1.02)
[2018-05-11] MEDS: Mometasone/Formoter 100/5 MDI INH SCH (07:08)
[2018-05-11] MEDS: Diltiazem CD CAP* 180 MG PO SCH (08:39)
[2018-05-11] MEDS: Bisoprolol TAB* 5 MG PO SCH (08:40)
[2018-05-11] MEDS: predniSONE TAB* 50 MG PO SCH (08:40)
[2018-05-11] MEDS: Digoxin TAB* 0.125 MG PO SCH (08:41)
[2018-05-11] MEDS: Docusate CAP* 100 MG PO SCH (08:42)
[2018-05-11] MEDS: Polyethylene Glycol 3350* 17 GM PACKET PO SCH (08:44)
[2018-05-11] MEDS: DOXYcycline CAP(*) 100 MG PO SCH (08:44)
[2018-05-11] MEDS: guaiFENesin ER TAB 600 MG PO SCH (08:45)
[2018-05-11] MEDS: Nystatin SUSPENSION* 100000 UNITS/ML 5 ML UDC PO SCH ×2 (08:46→13:51)
--- NOTE | 2018-05-11 13:31 | PN ---
Progress Note - Progress Note Date of Service: 05/11/18 - Pulm f/u note Note: Pt seen and examined at bedside. Pt reports feeling better. Looking forward to be d/norma home. Her son at bedside. Active Medications Generic Name Dose Route Start Last Admin Trade Name Freq PRN Reason Stop Dose Admin Hydrocodone Bitart/Acetaminophen 1 tab 05/05/18 20:56 05/10/18 03:44 Vance 5-325 Tab* PO 1 tab DAILY PRN Administration PAIN Albuterol 2 puff 05/09/18 10:41 Ventolin Hfa Inhaler* INH Q4H PRN SOB/WHEEZING Albuterol/Ipratropium 1 neb 05/09/18 11:00 05/11/18 11:34 Duoneb (Albuterol 2.5 Mg/Ipratropium 0.5 Mg) INH 1 neb [id number] AWAKE AURELIO Administration Bisoprolol Fumarate 2.5 mg 05/09/18 10:00 05/11/18 08:40 Zebeta Tab* PO 2.5 mg BID AURELIO Administration Calcium Carbonate 500 mg 05/06/18 14:08 05/08/18 10:04 Tums* PO 500 mg Q4H PRN Administration DYSPEPSIA Digoxin 0.125 mg 05/06/18 09:00 05/11/18 08:41 Lanoxin Tab* PO 0.125 mg QAM AURELIO Administration Diltiazem HCl 360 mg 05/06/18 09:00 05/11/18 08:39 Cardizem Cd Cap* PO 360 mg QAM AURELIO Administration Docusate Sodium 100 mg 05/06/18 09:00 05/11/18 08:42 Colace Cap* PO 100 mg BID AURELIO Administration Doxycycline Hyclate 100 mg 05/06/18 09:00 05/11/18 08:44 Vibramycin Cap(*) PO 100 mg BID AURELIO Administration Guaifenesin 600 mg 05/09/18 11:00 05/11/18 08:45 Mucinex* PO 600 mg BID AURELIO Administration Ceftriaxone Sodium 1 gm/ 50 mls @ 200 mls/hr 05/05/18 22:00 05/10/18 22:15 Sodium Chloride IVPB 200 mls/hr Q24H AURELIO Administration Mometasone Furoate/Formoterol Fumar 1 puff 05/05/18 21:00 05/11/18 07:08 Dulera 100/5 Mdi* INH 1 puff BID AURELIO Administration Nystatin 200,000 units 05/09/18 19:45 05/11/18 08:46 Nystatin Suspension* PO 200,000 units QID AURELIO Administration Omeprazole 40 mg 05/05/18 21:00 05/10/18 20:39 Prilosec Cap* PO 40 mg BEDTIME AURELIO Administration Polyethylene Glycol/Electrolytes 17 gm 05/10/18 09:00 05/11/18 08:44 Miralax* PO 17 gm DAILY AURELIO Administration Prednisone 50 mg 05/08/18 09:00 05/11/18 08:40 Deltasone Tab* PO 50 mg DAILY AURELIO Administration Senna 1 tab 05/06/18 21:00 05/10/18 20:39 Senokot Tab* PO 1 tab BEDTIME AURELIO Administration Warfarin Sodium 4.5 mg 05/06/18 17:00 05/09/18 17:22 Coumadin Tab(*) PO 4.5 mg [id number] AURELIO Administration Protocol Warfarin Sodium 3 mg 05/08/18 17:00 05/10/18 17:40 Coumadin Tab(*) PO 3 mg [id number] AURELIO Administration Vital Signs Temp Pulse Resp BP Pulse Ox 97.9 F 96 16 116/60 99 05/11/18 03:30 05/11/18 11:34 05/11/18 11:34 05/11/18 07:17 05/11/18 11:34 O/E: Pt in NAD HEENT: PERRLA, No JVD Lungs: Diminished a/e b/l, scaterred rhonchi present CVS: S1, S2+ Abd: Soft, BS+ Ext: Normal ROM Neuro: No focal defecits Skin: No rash or bruise Laboratory Results - last 24 hr 05/11/18 06:03 INR (Anticoag Therapy) 2.30 H I/R: 77 yo F who has a h/o COPD with chronic hypoxic respiratory failure requiring 3L O2 continuously, chronic diastolic CHF, HTN, atrial fibrillation, SIADH admitted for evaluation of worsening SOB , sec to possible pneumonia. Pt reports feeling better O2 requirements at baseline Rpt CT chest results were discussed in detail with pt- Significant mediastinal adenopathy with no change from prior CT chest, basal bronchiectaisis, scaterred nodularity, mostly in left lung, significant emphysematous changes. Bronschopy/EBUS in past was negative for malignancy. Thoracentesis showed no definite malignancy Discussed CT findings with pt and her son Concern with malignancy given extensive smoking was discussed She is high risk for CT guided bx given extensive emphysema and no definite dominant nodule was seen that could be biopsied Will schedule for rpt EBUS given extensive adenopathy She is high risk for mediastinoscopy Risks and benefits with bronchoscopy/EBUS was discussed in detail Risk of PTX and mediastinitis and concern for GA was discussed Pt and son agreeable to undergoing procedure Further recommnendations pending biopsy For d/c home today EBUS on 06/02/18, awaiting OR time Hold coumadin 3 days prior D/w Dr Martinez
[2018-05-11 16:01] VITALS: BP 108/52
[2018-05-11] MEDS ORDERED: Albuterol 2.5 MG/3 ML NEB.SOL* (0.083%) INH SCH (19:00)
[2018-05-11] MEDS ORDERED: Omeprazole CAP* 20 MG PO SCH (21:00)
--- NOTE | 2018-05-11 22:06 | DS ---
CC: Dr. Doshi * DISCHARGE SUMMARY: DATE OF ADMISSION: 05/05/18 DATE OF DISCHARGE: 05/11/18 PRINCIPAL DISCHARGE DIAGNOSES: 1. Pneumonia/bronchiectasis/chronic obstructive pulmonary disease exacerbation. 2. Acute on chronic hypoxic respiratory failure. 3. Hilar lymphadenopathy with concern for malignancy. SECONDARY DISCHARGE DIAGNOSES: 1. Chronic diastolic heart failure. 2. Metabolic alkalosis. 3. Hypertension. 4. Atrial fibrillation, on anticoagulation. 5. DNR. PHYSICAL EXAMINATION: At the time of discharge, temperature 97.9, heart rate 86 , respiratory rate 20, pulse ox 100% on 2 L, blood pressure 117/47. General: Alert, thin, well-appearing female in no distress. She is able to speak in full sentences and is using no accessory respiratory muscles. HEENT: Pupils are equal, round, and reactive to light. No nystagmus. Oral mucosa is moist. No pharyngeal exudates or erythema. Neck: No JVD. No cervical or supraclavicular lymphadenopathy. Chest: Irregular rhythm. PMI nondisplaced. Lungs with dry crackles bilaterally. Abdomen: Soft, nontender, nondistended. Bowel sounds normoactive. Extremities: No rashes, no ulcers, no arthropathies , no edema. DIAGNOSTIC IMAGING: CT chest, 05/10/18: 1. Extensive mediastinal adenopathy without appreciable change. 2. Pulmonary parenchymal opacities remain indeterminate and maybe neoplastic or inflammatory. 3. Advanced emphysematous changes, peribronchial thickening. 4. Stable left-sided pleural effusion. HOSPITAL COURSE BY PROBLEM: 1. Pneumonia/bronchiectasis/chronic obstructive pulmonary disease exacerbation. Ms. Magana was admitted with sudden-onset shortness of breath and an exacerbation of her chronic productive cough. Please the history and physical for the complete HPI. She has been following with Dr. Bran extensively for a long history of pulmonary pathology. At this point, the diagnosis is undifferentiated. She has had bronchoscopy and biopsy, which have been negative for malignancy; however, given her ongoing adenopathy and parenchymal changes, Dr. Bran's concern remains elevated for malignancy. At admission, Ms. Magana was started on doxycycline and prednisone and initially required Vapotherm; however, her oxygen requirement decreased to her home O2 requirement of 3 L on the first day of admission. She was continued on steroids and antibiotics and her functional status improved to her baseline by the time of discharge. Dr. Bran was consulted and agreed with a long course of steroids and she is being discharged on [address] Bran will taper this when she sees her in 2 weeks. A repeat EBUS has also been scheduled for and this was discussed with Ms. Magana. She is to discontinue her Coumadin 3 days prior to this procedure. She completed a 7-day course of doxycycline. Unfortunately, sputum cultures were not obtained on this admission. Blood cultures, however, were negative and urine antigens were also negative. 2. Hilar adenopathy. As above, she is scheduled for an EBUS on 06/02/18. The differential includes inflammatory versus malignancy. 3. Chronic diastolic heart failure. She was euvolemic on this admission. Torsemide had been discontinued as an outpatient and she remains euvolemic off diuretics. 4. History of SIADH. Her sodium here was in the normal range without salt tablets. There was concern for SIADH in the setting of undiagnosed small cell lung cancer; however, this has not been formally diagnosed and with a normal sodium level on this admission, this is lower on the differential. 5. Atrial fibrillation. She remained in AFib throughout this admission, but was rate controlled on her home regimen of digoxin, diltiazem, and bisoprolol. She was therapeutic on her current warfarin dose of 4.5 mg Tuesday, , Tuesday and 3 mg Tuesday, Tuesday, Tuesday, and Tuesday, and she is instructed to continue this regimen. She follows with Dr. Doshi, who follows her INRs. 6. DNR. DISPOSITION: Ms. Magana is being discharged to home on 05/11/18. She was evaluated by Physical Therapy, who felt that she was at her baseline functional status and safe to return home. Case Management set up [facility] for home PT and home nursing care. She will follow up with Dr. Bran on and a followup with [facility] is being requested. She is instructed to continue prednisone as above. Please do not hesitate to call me with any questions concerning this patient's admission or discharge. [id number]/[facility] #: [id number] [facility] CENTERNiesha
== END 2018-05-11 15:30 | disposition home or self-care (01) | DRG 193 ==
LOC: ED 17:18 → MED 20:52 → OBSVTOIN 05-06 16:04
PROVIDERS: ADMIT Hospitalist; ATTEND Internal Medicine
DX: J18.9 Pneumonia, unspecified organism (principal); J96.21 Acute and chronic respiratory failure with hypoxia; J44.0 Chronic obstructive pulmonary disease with (acute) lower respiratory infection; I50.32 Chronic diastolic (congestive) heart failure; E87.3 Alkalosis; R64 Cachexia; Z68.1 Body mass index [BMI] 19.9 or less, adult; E87.1 Hypo-osmolality and hyponatremia; J44.1 Chronic obstructive pulmonary disease with (acute) exacerbation; I11.0 Hypertensive heart disease with heart failure; I48.91 Unspecified atrial fibrillation; Z66 Do not resuscitate; R59.0 Localized enlarged lymph nodes; K21.9 Gastro-esophageal reflux disease without esophagitis; G89.29 Other chronic pain; M81.0 Age-related osteoporosis without current pathological fracture; M19.90 Unspecified osteoarthritis, unspecified site; G43.909 Migraine, unspecified, not intractable, without status migrainosus; E89.2 Postprocedural hypoparathyroidism; G47.00 Insomnia, unspecified; Z88.0 Allergy status to penicillin; Z99.81 Dependence on supplemental oxygen; Z88.1 Allergy status to other antibiotic agents; Z80.8 Family history of malignant neoplasm of other organs or systems; Z87.891 Personal history of nicotine dependence; Z90.2 Acquired absence of lung [part of]; Z95.0 Presence of cardiac pacemaker; Z86.718 Personal history of other venous thrombosis and embolism
CPT/HCPCS: 36415; 36600; 71045; 71250; 80048; 80053; 80162; 81003; 82436; 82550; 82803; 83605; 83735; 83880; 84100; 84145; 84484; 85025; 85027; 85610; 86140; 87040; 87899; 93005; 94640; 94760; 94762; 99284; A9270-GY; G8978-GP-CJ; G8979-GP-CJ; G8980-GP-CJ; J0696; J2930; J3475; J7512

== ENCOUNTER 2018-05-13 12:35 | Inpatient (IN) | payer MEDICARE, BC ==
[2018-05-13] MEDS ORDERED: NS 0.9% 1000 ML* 1,000 ML IV ONE (13:27)
[2018-05-13] MEDS ORDERED: methylPREDNISolone 125 MG* 2 ML VIAL IV ONE (13:30)
[2018-05-13] MEDS ORDERED: Albuterol/Ipratropium NEB.SOL* Albuterol 2.5 MG/Ipratropium 0.5 MG 3 ML INH ONE ×2 (13:30→13:32)
[2018-05-13 13:41] LABS: ABS Basophils 0.1 10^3/ul (0-0.2); ABS Eosinophils 0.1 10^3/ul (0-0.6); ABS Lymphocytes 1.6 10^3/ul (1.0-4.8); ABS Monocytes 1.3 10^3/ul (0-0.8); ABS Neutrophils 12.2 10^3/ul (1.5-7.7); ABS Nucleated RBC 0 10^3/ul; Eosinophil % 0.6 % (0-6); Hematocrit 39 % (35-47); Hemoglobin 12.7 g/dl (12.0-16.0); Lymphocyte % 10.3 % (25-47); Mean Corpuscular HGB Conc 33 g/dl (31-36); Mean Corpuscular Hemoglobin 30 pg (27-31); Mean Corpuscular Volume 93 fL (80-97); Nucleated Red Blood Cells % 0; Platelet Count 382 10^3/ul (150-450); Red Blood Count 4.21 10^6/ul (4.00-5.40); Red Cell Distribution Width 16 % (10.5-15); White Blood Count 15.3 10^3/ul (3.5-10.8)
[2018-05-13 13:48] LABS: INR 1.57 (0.77-1.02)
--- NOTE | 2018-05-13 13:50 | ED ---
Shortness of Breath - HPI Summary HPI Summary: This is brii Castro documenting for attending Dr. Wyatt Villa MD. The patient is a 77 y/o F presenting to [facility] c/o SOB and wheezing gradually worsening since being released from the hospital on 05/11/18 after being admitted for similar symptoms. In the hospital, she was given Doxycycline , but was not sent home with any medications.She denies CP, but states that she has been unable to ambulate well because she starts gasping for her breath. She states that she previously had lower extremity edema that has since resolved after being released from the hospital. At home, where she lives alone, she uses 3L O2 but does not use a CPAP. She uses Augmentin at home for COPD but has not used it today. No breathing treatments were given in the ambulance. She also has hx of Afib for which she takes Coumadin. She does not have a hx of CHF or diabetes. She is a previous smoker who stopped 20 years ago. - History of Current Complaint Chief Complaint: EDShortnessOfBreath Time Seen by Provider: 05/13/18 12:48 Hx Obtained From: Patient Onset/Duration: Gradual Onset, Lasting Days, Still Present Timing: Constant Current Severity: Moderate Dyspnea At: Rest Aggrevating Factors: Movement Alleviating Factors: Nothing Associated Signs & Symptoms: Wheezing - Allergy/Home Medications Allergies/Adverse Reactions: Allergies Allergy/AdvReac Type Severity Reaction Status Date / Time levofloxacin Allergy Severe GI Upset Verified 05/13/18 16:51 amoxicillin [From Augmentin] AdvReac Stomach Verified 05/13/18 16:51 Cramps clavulanic acid AdvReac Stomach Verified 05/13/18 16:51 [From Augmentin] Cramps PMH/Surg Hx/FS Hx/Imm Hx Endocrine/Hematology History: Reports: Other Endocrine/Hematological Disorders - hyperparathyroidism Denies: Hx Diabetes, Hx Systemic Lupus Erythematosus, Hx Anemia Cardiovascular History: Reports: Hx Angina, Hx Auto Implanted Cardiovert Defib, Hx Pacemaker/ICD Denies: Hx Congestive Heart Failure, Hx Hypertension Respiratory History: Reports: Hx Asthma, Hx Chronic Obstructive Pulmonary Disease (COPD), Hx Pneumonia GI History: Reports: Hx Gastroesophageal Reflux Disease Denies: Hx Jaundice History: Denies: Hx Renal Disease Musculoskeletal History: Reports: Hx Arthritis, Hx Orthopedic Injury, Hx Osteoporosis Denies: Hx Rheumatoid Arthritis Sensory History: Reports: Hx Contacts or Glasses - reading glasses, Hx Hearing Aid Opthamlomology History: Reports: Hx Contacts or Glasses - reading glasses Neurological History: Reports: Hx Headaches, Hx Migraine - Cancer History Hx Chemotherapy: No Hx Radiation Therapy: No - Surgical History Surgery Procedure, Year, and Place: Right lower lobectomy, 01/2002, [facility]. Parathyroidectomy, 07/2002, [facility]. DVT in left arm removed, 2011, [facility] in [place]. ORIF rt hip. Pacemaker. Afib ablation Hx Anesthesia Reactions: No Infectious Disease History: No Infectious Disease History: Denies: Traveled Outside the [place] in Last 30 Days - Family History Known Family History: Negative: Renal Disease - Social History Alcohol Use: None Hx Substance Use: No Substance Use Type: Reports: None Hx Tobacco Use: Yes Smoking Status (MU): Former Smoker Amount Used/How Often: smoked 3ppd 50 years approx Review of Systems Negative: Chest Pain Positive: Shortness Of Breath Negative: Edema All Other Systems Reviewed And Are Negative: Yes Physical Exam - Summary Physical Exam Summary: GENERAL: Patient is a well developed and nourished female who is lying comfortable in the stretcher. Patient is not in any acute respiratory distress. HEAD AND FACE: Normocephalic EYES: PERRLA, EOMI x 2. EARS: Hearing grossly intact. MOUTH: Oropharynx within normal limits. NECK: Supple, trachea is midline, no adenopathy, no JVD, no carotid bruit. CHEST: Symmetric, no tenderness at palpation LUNGS: Poor air entry bilaterally. Wheezing. CVS: Regular rate and rhythm, S1 and S2 present, no murmurs or gallops appreciated. ABDOMEN: Soft, non-tender. Bowel sounds are normal. No abdominal abnormal pulsations. EXTREMITIES: Full ROM in all major joints, no edema, no cyanosis or clubbing. NEURO: Alert and oriented x 3. No acute neurological deficits. Speech is normal and follows commands. SKIN: Dry and warm Triage Information Reviewed: Yes Vital Signs On Initial Exam: Initial Vitals Pulse Resp BP Pulse Ox 125 22 136/94 88 05/13/18 12:40 05/13/18 12:40 05/13/18 12:40 05/13/18 12:40 Vital Signs Reviewed: Yes Diagnostics - Vital Signs Vital Signs Temp Pulse Resp BP Pulse Ox 05/13/18 13:39 30 05/13/18 13:10 117 41 145/72 94 05/13/18 13:00 111 24 90 05/13/18 12:47 97.7 F 138 28 136/94 95 05/13/18 12:40 125 22 136/94 88 - Laboratory Lab Results: Lab Results 05/13/18 05/13/18 Range/Units 13:30 13:30 WBC 15.3 H (3.5-10.8) 10^3/ul RBC 4.21 (4.00-5.40) 10^6/ul Hgb 12.7 (12.0-16.0) g/dl Hct 39 (35-47) % MCV 93 (80-97) fL MCH 30 (27-31) pg MCHC 33 (31-36) g/dl RDW 16 H (10.5-15) % Plt Count 382 (150-450) 10^3/ul MPV 8.0 (7.4-10.4) um3 Neut % (Auto) 80.2 (38-83) % Lymph % (Auto) 10.3 L (25-47) % Collin % (Auto) 8.5 H (0-7) % Eos % (Auto) 0.6 (0-6) % Baso % (Auto) 0.4 (0-2) % Absolute Neuts (auto) 12.2 H (1.5-7.7) 10^3/ul Absolute Lymphs (auto) 1.6 (1.0-4.8) 10^3/ul Absolute Monos (auto) 1.3 H (0-0.8) 10^3/ul Absolute Eos (auto) 0.1 (0-0.6) 10^3/ul Absolute Basos (auto) 0.1 (0-0.2) 10^3/ul Absolute Nucleated RBC 0 10^3/ul Nucleated RBC % 0 VBG pH 7.42 (7.33-7.43) VBG pCO2 55 H (41-51) mmHg VBG pO2 29 L (35-45) mmHg VBG HCO3 31.2 H (24-28) mmol/L VBG O2 Saturation 61.7 L (70-80) % VBG Base Excess 9.3 H (0-4) Result Diagrams: 05/14/18 05:17 05/14/18 05:17 Lab Statement: Any lab studies that have been ordered have been reviewed, and results considered in the medical decision making process. - Radiology CXR Xray Interpretation: Positive (See Comments) - 1. Unchanged finding of extensive mediastinal and hilar lymphadenopathy based on correlation with recent CT. 2. Advanced chronic obstructive pulmonary disease. 3. LEFT greater than RIGHT basilar airspace consolidation consistent with pneumonia. 4. No significant change in moderate dependent LEFT pleural effusion. ED physician has reviewed this report. Radiology Interpretation Completed By: Radiologist - EKG 13:37 Cardiac Rate: Other Rate - Atrial fibrillation 106 BPM EKG Rhythm: Atrial Fibrillation EKG Interpretation: TN ruled out. Some inverted T waves in V1-V3. EKG Comparison: No Significant Change - Similar to EKG on February 22, 2018. Re-Evaluation - Re-Evaluation First Eval Re-Evaluation Time: 16:00 Change: Unchanged Comment: I spoke with the pt about CXR results and admission to [facility]. Pt is agreeable with this plan. Course/Dx - Course Course Of Treatment: The patient is a 77 y/o F [facility]/o SOB and wheezing gradually worsening since being released from the hospital on after being admitted for similar symptoms. In the hospital, she was given Doxycycline, but was not sent home with any medications.She denies CP, but states that she has been unable to ambulate well because she starts gasping for her breath. She states that she previously had lower extremity edema that has since resolved after being released from the hospital. At home, where she lives alone, she uses 3L O2 but does not use a CPAP. She uses Augmentin at home for COPD but has not used it today. No breathing treatments were given in the ambulance. She also has hx of Afib for which she takes Coumadin. She does not have a hx of CHF or diabetes. She is a previous smoker who stopped 20 years ago. Medications reviewed. Allergies noted. In the ED course, the pt was administered IV Ns 0.9% 1000ml @ 1000mls/hr, INH Albuterol/Ipratropium 1 neb 2x , IV Solu-Medrol 125 mg. Bloodwork shows increased WBC, increased monocytes, VBG base, and B-type natriuretic peptide, and decrease in lymphocytes and O2 sat. EKG shows Afib with inverted T waves V1-V3. CXR reveals no new change in COPD and new PNA. Pt is diagnosed with COPD exacerbation. I consulted with Dr. Looney, hospitalist, at 15:48 who accepts the pt for admission to [facility] at 16:30. Pt is agreeable with this plan. - Diagnoses Provider Diagnoses: COPD exacerbation - Physician Notifications Discussed Care of Patient With: Darrian Looney Time Discussed With Above Provider: 15:58 Discharge - Sign-Out/Discharge Documenting (check all that apply): Patient Departure - Pt will be admitted to [facility] by Dr. Looney. - Discharge Plan Condition: Stable Disposition: ADMITTED TO [facility] - Billing Disposition and Condition Condition: STABLE Disposition: Admitted to [facility]
[2018-05-13 13:58] LABS: EGFR Non-African American 122.1 (>60)
--- NOTE | 2018-05-13 15:59 | RAD ---
Indication: Cough. Chronic obstructive pulmonary disease. History of tobacco use. Comparison: May 09, 2018 chest radiograph and May 10, 2018 CT. Technique: Upright AP 1420 hours. Report: Elevated lung volumes with both mild prominence of the interstitial markings and patchy rarefaction. Airspace consolidation at the LEFT greater than the RIGHT lung base is suspicious for mucus plugging and postobstructive pneumonitis. Moderate LEFT dependent pleural effusions with proportional basilar atelectasis. Blunting of the RIGHT lateral costophrenic angle is secondary to hyperinflation. Negative for cardiomegaly. RIGHT atrial and RIGHT ventricular level pacemaker leads. Prominent mediastinal and hilar contours corresponding with lymphadenopathy based on correlation with prior CT. IMPRESSION: #. Unchanged finding of extensive mediastinal and hilar lymphadenopathy based on correlation with recent CT. #. Advanced chronic obstructive pulmonary disease. #. LEFT greater than RIGHT basilar airspace consolidation consistent with pneumonia. #. No significant change in moderate dependent LEFT pleural effusion.
[2018-05-13] MEDS ORDERED: HYDROcodone/ACETAMIN 5-325 MG* 1 TAB PO ONE (16:00)
[2018-05-13] MEDS ORDERED: Morphine VIAL* 4 MG/ML VIAL (1 ml vial) IV PRN (16:36)
[2018-05-13] MEDS ORDERED: Piperacillin/Tazobac ADVAN(*) 3.375 GM in NS 0.9% 100 ML* 100 ML IVPB ONE (16:45)
[2018-05-13] MEDS ORDERED: Zosyn per Pharmacy* NOTE FOLLOW UP SCH (17:00)
[2018-05-13] MEDS ORDERED: Warfarin TAB(*) 3 MG PO SCH (17:00)
[2018-05-13] MEDS ORDERED: Digoxin TAB* 0.125 MG PO ONE (18:41)
[2018-05-13] MEDS: methylPREDNISolone SOD 40 MG* 1 ML VIAL IV SCH (19:02)
[2018-05-13] MEDS: Digoxin TAB* 0.125 MG PO SCH (19:04)
--- NOTE | 2018-05-13 20:19 | HP ---
Amended report to delete co-signing physician from report. CC: Dr. Doshi; Dr. Bran * HISTORY AND PHYSICAL: DATE OF ADMISSION: 05/13/18 TIME OF ADMISSION: 4:45 p.m. PRIMARY CARE PHYSICIAN: Dr. Doshi. CHIEF COMPLAINT: Weakness and shortness of breath. HISTORY OF PRESENT ILLNESS: This is a 77-year-old female, well known to me from a recent admission who presented to the emergency department today 2 days after recent discharge with weakness. She states that at that time she was discharged, she felt good and when she went home, she was much better; however, over the following 24 hours of being at home, she got progressively weak and was unable to even stand from a chair. Her grandson tried to help her move about her house and her visiting nurse came and she almost fell, at which point she realized she could not live alone anymore and she wanted to come to the emergency department to discuss fpc placement. She realizes that her pulmonary disease may be getting worse and accepts that she needs more help than she currently has at home. She has an extensive pulmonary history that is being worked up by Dr. Bran. At this point, the pathology is undifferentiated, however given extensive mediastinal and hilar lymphadenopathy, malignancy is highest on the differential despite a negative bronchoscopy. Repeat EBUS was planned for 05/[address] Bran. Ms. Mgaana was discharged on prednisone and she was able to pick this up and had been taking it. She had completed a course of antibiotics on the last admission and she had nebulizers and inhalers at home that she was using without improvement. PAST MEDICAL HISTORY: 1. COPD, on 3 L of oxygen continuously. 2. Atrial fibrillation, on anticoagulation. 3. Bronchiectasis. 4. Extensive and progressive hilar lymphadenopathy with a negative biopsy. 5. History of pulmonary abscess, status post wedge resection. 6. History of SIADH. 7. Chronic diastolic heart failure. 8. Chronic pain syndrome. MEDICATIONS: Home medications: 1. Albuterol inhaler q.6 p.r.n. wheezing. 2. Advair 100/50 one puff inhaled b.i.d. 3. [place] 5/325 one tab daily p.r.n. pain. 4. Prednisone 20 mg daily. 5. Bisoprolol 2.5 mg b.i.d. 6. Digoxin 0.125 mg daily. 7. Cardizem 360 mg daily. 8. Omeprazole 20 mg q.h.s. 9. Warfarin 3 mg Tuesday, Tuesday, Tuesday, Tuesday and 4.5 mg Tuesday, , Tuesday. SOCIAL HISTORY: She lives at home alone. Her sons live nearby and check on her frequently. She is a former smoker. She does not drink alcohol or use illicit drugs. REVIEW OF SYSTEMS: She denies any fevers. She does have a cough that is productive of sputum, which is unchanged. She feels short of breath with even slight movements and has very limited functional capacity. She has lost about 50 pounds since October. She denies night sweats. She denies chest pain or palpitations. She denies nausea, vomiting, constipation, or diarrhea. PHYSICAL EXAMINATION GENERAL: Ms. Magana is a thin, ill-appearing lady who appears to be in some respiratory distress. She is tachypneic and becomes dyspneic with very slight movements within the bed and she is unable to speak in full sentences. VITAL SIGNS: Temperature 97.5, heart rate 124, respiratory rate 29, pulse ox 98 % on 5 L of oxygen, blood pressure 145/72. HEENT: Pupils equal, round, reactive to light. Oral mucosa is moist. No pharyngeal exudates or erythema. NECK: No JVD. No cervical or supraclavicular lymphadenopathy. CHEST: Lung sounds are very diminished and distant with diffuse expiratory wheezing. HEART: Rate is irregular and tachycardic with no murmurs. ABDOMEN: Soft, nontender, nondistended. No guarding or rebound. EXTREMITIES: No edema. No rashes. No ulcers. NEUROLOGIC: Strength 5/5 throughout. She is oriented x3 and follows commands appropriately. DIAGNOSTIC STUDIES/LAB DATA: Chest x-ray unchanged finding of extensive mediastinal and hilar lymphadenopathy based on correlation with recent CT, advanced COPD, left greater than right basilar air space consolidation consistent with pneumonia, no significant change in moderate dependent left pleural effusion. Labs: INR 1.57. VBG 7.42, PCO2 of 55. Sodium 137, potassium 3.5, chloride 94 , bicarb 34, creatinine 0.49, glucose 96. Lactic acid 1.4. BNP 170. White blood cell 15.3, hemoglobin 12.7, platelets 382. ASSESSMENT AND PLAN: This is a 77-year-old female with an extensive pulmonary history including chronic hypoxic respiratory failure, on 3 L of home O2; interstitial lung disease and hilar and mediastinal lymphadenopathy, who is currently being worked up by Dr. Bran, who presents to the emergency department 2 days after being discharged with weakness, inability to care for herself at home, tachypnea, and tachycardia. 1. Acute on chronic hypoxic respiratory failure. I suspect this is reflective of progression of her underlying pulmonary disease and may also a reflection of the decrease in steroid dose at her discharge 2 days ago. I am increasing her steroid back up to Solu-Medrol 40 mg IV q.8; however, she has been on very long courses of steroids with minimal effect. I am also checking a sputum sample and I am starting her on pip-tazo for possible healthcare-associated pneumonia; however, I think this is less likely. She may have a slight component of diastolic heart failure; however, again, I do not think this is the driving force behind her hypoxia, though she may benefit from a small dose of Lasix now. Overall, I believe that her prognosis is very poor and I have discussed this with her sons who agree. I am consulting Dr. Bran; however, she is not on-call this weekend, so hopefully she will be able to see Ms. Magana on Tuesday and if Ms. Magana' respiratory status improves by then, perhaps she would consider performed the EBUS inpatient instead of waiting until next month. I did approach the topic of palliative care with Ms. Magana' sons and they agree with this idea and asked that I speak with Ms. Magana alone about this possibility, which I will go back and do later. 2. Weakness. I would like to check a digoxin level and a urinalysis and magnesium and phosphorus level that any of these may be contributing to her profound weakness; however, again I unfortunately suspect that her weakness is more likely a reflection of the suspected underlying malignancy and the profound weight loss she has experienced in combination with her ongoing hypoxia. I am also ordering a Physical Therapy consult as she is open and hopeful for considering placement at the time of discharge. 3. Atrial fibrillation with rapid ventricular response. I suspect this is related to her respiratory distress and also having missed her morning atrial fibrillation medications. I will give her a dose of dig after her level returns. 4. Chronic diastolic heart failure. She is not on any diuretics at home. Again, she may have a small amount of volume contributing, but I do not believe this is the driving force of her dyspnea and hypoxia. 5. Chronic pain syndrome. Continue [place]. 6. Code status. I had a lengthy discussion with Ms. Magana about her code status and she wants to be DNR and DNI. Her sons who are her healthcare proxies are in the room at the time we have this discussion and are in agreement. [id number]/CPS #: [id number] ELVIS
[2018-05-13] MEDS: Bisoprolol TAB* 5 MG PO SCH (20:30)
[2018-05-13] MEDS: Omeprazole CAP* 20 MG PO SCH (20:30)
[2018-05-13] MEDS: Albuterol/Ipratropium NEB.SOL* Albuterol 2.5 MG/Ipratropium 0.5 MG 3 ML INH PRN (23:50)
[2018-05-14] MEDS ORDERED: NS 0.9% 100 ML* 100 ML ONE (01:26)
[2018-05-14] MEDS: ZOSYN 3.375 GM Q8H per EXTENDED INFUSION IVPB SCH ×8 (01:30→20:11)
[2018-05-14] MEDS: methylPREDNISolone SOD 40 MG* 1 ML VIAL IV SCH ×3 (01:30→18:07)
[2018-05-14 06:03] LABS: ABS Basophils 0 10^3/ul (0-0.2); ABS Eosinophils 0 10^3/ul (0-0.6); ABS Lymphocytes 0.5 10^3/ul (1.0-4.8); ABS Monocytes 0.3 10^3/ul (0-0.8); ABS Neutrophils 11.5 10^3/ul (1.5-7.7); ABS Nucleated RBC 0 10^3/ul; Eosinophil % 0 % (0-6); Hematocrit 36 % (35-47); Hemoglobin 12.1 g/dl (12.0-16.0); Lymphocyte % 4.3 % (25-47); Mean Corpuscular HGB Conc 33 g/dl (31-36); Mean Corpuscular Hemoglobin 31 pg (27-31); Mean Corpuscular Volume 93 fL (80-97); Mean Platelet Volume 8.4 um3 (7.4-10.4); Nucleated Red Blood Cells % 0; Platelet Count 281 10^3/ul (150-450); Red Blood Count 3.89 10^6/ul (4.00-5.40); Red Cell Distribution Width 16 % (10.5-15); White Blood Count 12.3 10^3/ul (3.5-10.8)
[2018-05-14] MEDS: Bisoprolol TAB* 5 MG PO SCH ×2 (08:07→21:10)
[2018-05-14] MEDS: Diltiazem CD CAP* 180 MG PO SCH (08:08)
[2018-05-14] MEDS: Digoxin TAB* 0.125 MG PO SCH (08:08)
[2018-05-14] MEDS: Albuterol/Ipratropium NEB.SOL* Albuterol 2.5 MG/Ipratropium 0.5 MG 3 ML INH PRN ×2 (09:05→20:16)
--- NOTE | 2018-05-14 16:05 | PN ---
Subjective Date of Service: 05/14/18 Interval History: Ms. Magana reports feeling better than on admission as she is now able to speak without becoming extremely short of breath. She reports some pain along the sides of her tongue consistent with her recent history of thrush. She denies other complaint including chest pain, nausea, or abdominal pain. Objective Active Medications: Albuterol/Ipratropium (Duoneb (Albuterol 2.5 Mg/Ipratropium 0.5 Mg)) 1 neb INH [id number] AWAKE PRN Bisoprolol Fumarate (Zebeta Tab*) 2.5 mg PO BID [facility] Digoxin (Lanoxin Tab*) 0.125 mg PO QAM [facility] Diltiazem HCl (Cardizem Cd Cap*) 360 mg PO QAM [facility] Piperacillin Sod/Tazobactam (Sod 3.375 gm/ Sodium Chloride) 100 mls @ 25 mls/ hr IVPB Q8H [facility] Methylprednisolone Sodium Succinate (Solu-Medrol 40 Mg) 40 mg IV Q8H [facility] Morphine Sulfate (Morphine Vial*) 2 mg IV Q4H PRN Omeprazole (Prilosec Cap*) 40 mg PO BEDTIME [facility] Pharmacy Consult (Zosyn Per Pharmacy*) 1 note FOLLOW UP .ZOSYN PER PHARMACY [facility] Warfarin Sodium (Coumadin Tab(*)) 3 mg PO SUMOWEFR [facility]; Protocol Warfarin Sodium (Coumadin Tab(*)) 4.5 mg PO TUTHSA [facility]; Protocol Vital Signs: Temp Pulse Resp BP Pulse Ox 98.0 F 80 16 123/71 100 05/14/18 11:43 05/14/18 11:43 05/14/18 11:43 05/14/18 11:43 05/14/18 11:43 Oxygen Devices in Use Now: Nasal Cannula Appearance: Female lying in bed in NAD Eyes: No Scleral Icterus Ears/Nose/Mouth/Throat: Mucous Membranes Moist Neck: Trachea Midline Respiratory: Symmetrical Chest Expansion and Respiratory Effort, - - Diminished bilateraly, L > R Result Diagrams: 05/14/18 05:17 05/14/18 05:17 Assess/Plan/Problems-Billing Assessment: Ms. Magana is a 77 yo F with a PMH of extensive pulmonary disease including COPD and lymphadenopathy (of uncertain cause) with chronic hypoxic respiratory failyre who was admitted on 05/13/18 with concern for worsening respiratory failure and need for long term placement. - Patient Problems (1) Acute and chronic respiratory failure with hypoxia Comment: - Now on 4L, usually on 3L at home. - Continue solumedrol and zosyn for now until able to be seen by Dr. Bran tomorrow. Continue duonebs - Sputum culture pending. - Likely multifactorial with COPD, interstitial lung disease and diffuse lymphadenopathy concerning for malignancy. Repeat EBUS has been planned for outpatient. (2) Atrial fibrillation Comment: - HR better controlled today. - Continue digoxin, diltiazem, bisoprolol. - Continue coumadin, INR therapeutic. (3) Diastolic CHF Comment: - Euvolemic. Standing diuretic held. To be used prn for edema/weight gain. (4) Hypertension Comment: - BP well controlled. - Continue bisoprolol, diltiazem. (5) Chronic pain Comment: - Continue prn norco. (6) GERD (gastroesophageal reflux disease) Comment: - Continue omeprazole (7) Thrush Comment: - Oropharyngeal. - Start clotrimazole troches. (8) DVT prophylaxis Comment: - Coumadin (9) DNR (do not resuscitate) Status and Disposition: Inpatient. Will likely need NH placement.
[2018-05-14] MEDS ORDERED: Warfarin TAB(*) 3 MG PO SCH (17:00)
[2018-05-14 17:58] LABS: INR 2.65 (0.77-1.02)
[2018-05-14] MEDS: Clotrimazole TROCHE* 10 MG TROCHE PO SCH ×2 (18:07→21:11)
[2018-05-14] MEDS ORDERED: HYDROcodone/ACETAMIN 5-325 MG* 1 TAB PO PRN (18:45)
[2018-05-14] MEDS: Omeprazole CAP* 20 MG PO SCH (21:11)
[2018-05-14] MEDS ORDERED: Warfarin TAB(*) 3 MG PO ONE (21:25)
[2018-05-15] MEDS: methylPREDNISolone SOD 40 MG* 1 ML VIAL IV SCH ×3 (00:28→17:27)
[2018-05-15] MEDS: Albuterol/Ipratropium NEB.SOL* Albuterol 2.5 MG/Ipratropium 0.5 MG 3 ML INH PRN ×2 (01:06→15:48)
[2018-05-15] MEDS: ZOSYN 3.375 GM Q8H per EXTENDED INFUSION IVPB SCH ×6 (03:49→20:02)
[2018-05-15] MEDS: Clotrimazole TROCHE* 10 MG TROCHE PO SCH ×5 (05:11→21:02)
[2018-05-15 07:11] LABS: INR 3.11 (0.77-1.02)
[2018-05-15] MEDS ORDERED: Warfarin TAB(*) 3 MG PO SCH ×2 (09:00→17:00)
[2018-05-15] MEDS: Bisoprolol TAB* 5 MG PO SCH ×2 (09:45→20:02)
[2018-05-15] MEDS: Diltiazem CD CAP* 180 MG PO SCH (09:46)
[2018-05-15] MEDS: Digoxin TAB* 0.125 MG PO SCH (09:46)
--- NOTE | 2018-05-15 11:50 | PN ---
Subjective Date of Service: 05/15/18 Interval History: Ms. Magana reports that she is feeling a bit better today but remains dyspneic with exertion. She denies chest pain, nausea, or abdominal pain. Objective Active Medications: Hydrocodone Bitart/Acetaminophen ([place] 5-325 Tab*) 1 tab PO Q4H PRN Albuterol/Ipratropium (Duoneb (Albuterol 2.5 Mg/Ipratropium 0.5 Mg)) 1 neb INH [id number] AWAKE PRN Bisoprolol Fumarate (Zebeta Tab*) 2.5 mg PO BID [facility] Clotrimazole (Mycelex Casimiro*) 10 mg PO FIVE TIMES DAILY [facility] Digoxin (Lanoxin Tab*) 0.125 mg PO QAM [facility] Diltiazem HCl (Cardizem Cd Cap*) 360 mg PO QAM [facility] Piperacillin Sod/Tazobactam (Sod 3.375 gm/ Sodium Chloride) 100 mls @ 25 mls/ hr IVPB 0400,1200,2000 [facility] Methylprednisolone Sodium Succinate (Solu-Medrol 40 Mg) 40 mg IV Q8H [facility] Morphine Sulfate (Morphine Vial*) 2 mg IV Q4H PRN Omeprazole (Prilosec Cap*) 40 mg PO BEDTIME [facility] Pharmacy Consult (Zosyn Per Pharmacy*) 1 note FOLLOW UP .ZOSYN PER PHARMACY [facility] Warfarin Sodium (Coumadin Tab(*)) 3 mg PO SUMOWEFR [facility]; Protocol Warfarin Sodium (Coumadin Tab(*)) 2.5 mg PO TUTHSA [facility]; Protocol Warfarin Sodium (Coumadin Tab(*)) 2 mg PO TuThSa@1700 [facility] Vital Signs: Temp Pulse Resp BP Pulse Ox 99.8 F 99 17 127/54 100 05/15/18 07:28 05/15/18 09:46 05/15/18 07:28 05/15/18 07:28 05/15/18 07:28 Oxygen Devices in Use Now: Nasal Cannula Appearance: Female lying in bed in NAD Eyes: No Scleral Icterus Ears/Nose/Mouth/Throat: Mucous Membranes Moist Neck: Trachea Midline Respiratory: Symmetrical Chest Expansion and Respiratory Effort, - - Diminished throughout, few musical tones noted in left lower lobe Cardiovascular: NL Sounds; No Murmurs; No JVD, No Edema Abdominal: NL Sounds; No Tenderness; No Distention Lymphatic: No Cervical Adenopathy Extremities: No Edema Skin: No Rash or Ulcers Neurological: Alert and Oriented x 3, NL Muscle Strength and Tone Result Diagrams: 05/14/18 05:17 05/14/18 05:17 Assess/Plan/Problems-Billing Assessment: Ms. Magana is a 77 yo F with a PMH of extensive pulmonary disease including COPD and lymphadenopathy (of uncertain cause) with chronic hypoxic respiratory failyre who was admitted on 05/13/18 with concern for worsening respiratory failure and need for prison placement. - Patient Problems (1) Acute and chronic respiratory failure with hypoxia Comment: - Remains on 4L, usually on 3L at home. Titrate as possible. - Suspect a component of COPD EXACERBATION though patient also has a multifactorial process involving interstitial lung disease and diffuse lymphadenopathy concerning for malignancy (though EBUS has been negative). - Continue solumedrol and zosyn for now until able to be seen by Dr. Bran tomorrow. Continue duonebs - Sputum culture pending. (2) Atrial fibrillation Comment: - HR better controlled today. - Continue digoxin, diltiazem, bisoprolol. - Continue coumadin, INR 3.11, recheck in AM. (3) Diastolic CHF Comment: - CHRONIC, stable, euvolemic. Standing diuretic held. To be used prn for edema/ weight gain. (4) Hypertension Comment: - BP well controlled. - Continue bisoprolol, diltiazem. (5) Chronic pain Comment: - Continue prn norco. (6) GERD (gastroesophageal reflux disease) Comment: - Continue omeprazole (7) Thrush Comment: - Oropharyngeal. - Start clotrimazole troches. (8) DVT prophylaxis Comment: - Coumadin (9) DNR (do not resuscitate) Status and Disposition: Inpatient. Will likely need NH placement.
--- NOTE | 2018-05-15 17:27 | PN ---
Progress Note - Progress Note Date of Service: 05/15/18 - Pulm f/u note Note: Patient seen and examined at bedside. Patient is 77-year-old female with history of severe COPD/emphysema, O2 dependent with complicated course recently with recurrent hospitalizations for worsening shortness of breath. Patient noted to have significant mediastinal and hilar adenopathy and small left pleural effusion. Patient had bronchoscopy/EBUS, lymph node sampling was negative for malignancy. Patient also noted to have hyponatremia recently, resolved with holding hydrochlorothiazide. Patient continued to have worsening course recently. She was recently discharged after being treated for acute COPD exacerbation and pneumonia. Patient returns for evaluation of worsening shortness of breath. Patient is currently being treated for healthcare associated pneumonia. Patient also has been on chronic prednisone therapy. Patient reports decreased appetite and weight loss. Patient reports one episode of coughing up phlegm with streaks of blood. Patient denies chest pain, palpitations, dizziness. Patient claims to be compliant with nebulizers and eventually nebulization to help mobilize secretions. Past medical history, past surgical history, allergies, social history and family history were reviewed and are unchanged from recent admission, please refer to previous consultation report for further details Patient reports slight improvement in shortness of breath. Patient reports feeling very weak and is unable to take care of herself at home. Patient is being evaluated for possible half-way placement during this admission Atrial fibrillation with rapid ventricular rate is controlled currently She has been needing O2 supplementation at 4 L/m which is increased from her baseline of 3 L/m Active Medications Generic Name Dose Route Start Last Admin Trade Name Freq PRN Reason Stop Dose Admin Hydrocodone Bitart/Acetaminophen 1 tab 05/14/18 18:45 05/14/18 19:53 [place] 5-325 Tab* PO 1 tab Q4H PRN Administration PAIN Albuterol/Ipratropium 1 neb 05/13/18 16:36 05/15/18 15:48 Duoneb (Albuterol 2.5 Mg/Ipratropium 0.5 Mg) INH 1 neb [id number] AWAKE PRN Administration sob/wheexing Bisoprolol Fumarate 2.5 mg 05/13/18 21:00 05/15/18 09:45 Zebeta Tab* PO 2.5 mg BID [facility] Administration Clotrimazole 10 mg 05/14/18 18:00 05/15/18 14:39 Mycelex Casimiro* PO 10 mg FIVE TIMES DAILY [facility] Administration Digoxin 0.125 mg 05/13/18 17:00 05/15/18 09:46 Lanoxin Tab* PO 0.125 mg QAM [facility] Administration Diltiazem HCl 360 mg 05/14/18 09:00 05/15/18 09:46 Cardizem Cd Cap* PO 360 mg QAM [facility] Administration Piperacillin Sod/Tazobactam 100 mls @ 25 mls/hr 05/15/18 04:00 05/15/18 12:13 Sod 3.375 gm/ Sodium Chloride IVPB 25 mls/hr 0400,1200,2000 [facility] Administration Methylprednisolone Sodium Succinate 40 mg 05/13/18 17:00 05/15/18 09:47 Solu-Medrol 40 Mg IV 40 mg Q8H [facility] Administration Morphine Sulfate 2 mg 05/13/18 16:36 Morphine Vial* IV Q4H [facility]N [facility] Omeprazole 40 mg 05/13/18 21:00 05/14/18 21:11 Prilosec Cap* PO 40 mg BEDTIME [facility] Administration Pharmacy Consult 1 note 05/13/18 17:00 Zosyn Per Pharmacy* FOLLOW UP .ZOSYN PER PHARMACY [facility] Warfarin Sodium 3 mg 05/15/18 17:00 Coumadin Tab(*) PO SUMOWEFR COUNTS INCLUDE 234 BEDS AT [facility] Protocol Warfarin Sodium 2.5 mg 05/16/18 17:00 Coumadin Tab(*) PO TUTHSA COUNTS INCLUDE 234 BEDS AT THE [facility] Protocol Warfarin Sodium 2 mg 05/16/18 17:00 Coumadin Tab(*) PO TuThSa@1700 COUNTS INCLUDE 234 BEDS AT THE [facility] Vital Signs Temp Pulse Resp BP Pulse Ox 98.4 F 80 16 117/53 98 05/15/18 15:19 05/15/18 15:50 05/15/18 15:50 05/15/18 15:19 05/15/18 15:50 On exam General: Thin, elderly f appearing older than stated age, not in distress HEENT: PERRLA, No JVD, mild use of accessory muscles Lungs: diminished air entry bilaterally, no significant wheeze noted CVS:S1, S2+, irregular Abd: Soft, BS+ Ext: Normal ROM Skin: NO rash, bruises from blood draws Neuro: No focal defecits Psych: NO anxiety or flat affect Laboratory Results - last 24 hr 05/14/18 05/15/18 17:45 06:01 INR (Anticoag Therapy) 2.65 H 3.11 H I/R: 77-year-old female with significant COPD, emphysema, O2 dependent, complicated course recently with recurrent hospitalizations, noted to have significant mediastinal and hilar adenopathy and possible postobstructive pneumonia with evidence of scattered airspace opacities with significant dyspnea on exertion CT chest findings highly concerning for malignancy given significant smoking history and her age Patient had thoracentesis in the past which was nondiagnostic for any malignancy She had bronchoscopy/EBUSwhich was also negative for metastatic disease or lymphoma Patient was treated with multiple courses of antibiotics and prednisone Patient does have improvement in symptoms each time with recurrence of symptoms after She is very high risk for CT-guided biopsy, she does have patchy airspace opacities suspect if that would be yielding useful information She is not candidate for mediastinoscopy given her friable status Patient referred to to have follow-up CT scan before repeat bronchoscopy could be performed CT chest during recent hospitalization was reviewed with the patient, she agreed for a repeat bronchoscopy, understanding all the risks associated with it I had lengthy discussion with patient and her son Geo over telephone, discussing risks associated with the procedure and her inability to tolerate any definitive intervention Patient has expressed her wishes in the past, did not want to go to painful procedures or invasive procedures She preferred to be comfortable Patient at this time understands bronchoscopy is associated with greater risk, would want to hold off, would want to consider comfort care measures I had multiple discussions in the past with her2 sons who are very involved in her care and has spent extensive time in discussing her prognosis and diagnostic challenges All their questions were thoroughly addressed They understand that CT findings are more suggestive of malignancy and diagnostic challenges Her son Geo will be available tomorrow for extensive discussion [id number] and to arrive at definitive conclusion agrees with current management Discussed with Gertrude Chinchilla NP
[2018-05-15] MEDS: Omeprazole CAP* 20 MG PO SCH (20:02)
[2018-05-15] MEDS ORDERED: Albuterol/Ipratropium NEB.SOL* Albuterol 2.5 MG/Ipratropium 0.5 MG 3 ML ONE (21:32)
[2018-05-16] MEDS: methylPREDNISolone SOD 40 MG* 1 ML VIAL IV SCH ×3 (00:48→16:17)
[2018-05-16] MEDS: ZOSYN 3.375 GM Q8H per EXTENDED INFUSION IVPB SCH ×4 (03:37→12:35)
[2018-05-16] MEDS: Clotrimazole TROCHE* 10 MG TROCHE PO SCH ×5 (05:14→20:30)
[2018-05-16 06:36] LABS: INR 4.01 (0.77-1.02)
[2018-05-16] MEDS: Bisoprolol TAB* 5 MG PO SCH ×2 (07:38→20:29)
[2018-05-16] MEDS: Digoxin TAB* 0.125 MG PO SCH (07:38)
[2018-05-16] MEDS: Diltiazem CD CAP* 180 MG PO SCH (07:38)
[2018-05-16] MEDS: Albuterol/Ipratropium NEB.SOL* Albuterol 2.5 MG/Ipratropium 0.5 MG 3 ML INH PRN ×3 (07:46→21:54)
--- NOTE | 2018-05-16 14:12 | PN ---
Subjective Date of Service: 05/16/18 Interval History: Ms. Magana reports feeling ok today though she remains very dyspneic with exertion. She denies chest pain, nausea, or abdominal pain. She is tolerating oral intake. She and her family have had discussions with Dr. Bran regarding her prognosis and she is opting now to consider hospice with a preference to go to the [facility] if possible. Objective Active Medications: Hydrocodone Bitart/Acetaminophen ([place] 5-325 Tab*) 1 tab PO Q4H PRN Albuterol/Ipratropium (Duoneb (Albuterol 2.5 Mg/Ipratropium 0.5 Mg)) 1 neb INH [id number] AWAKE PRN Bisoprolol Fumarate (Zebeta Tab*) 2.5 mg PO BID AURELIO Clotrimazole (Mycelex Casimiro*) 10 mg PO FIVE TIMES DAILY AURELIO Digoxin (Lanoxin Tab*) 0.25 mg PO QAM AURELIO Diltiazem HCl (Cardizem Cd Cap*) 360 mg PO QAM AURELIO Piperacillin Sod/Tazobactam (Sod 3.375 gm/ Sodium Chloride) 100 mls @ 25 mls/ hr IVPB 0400,1200,2000 AUREILO Methylprednisolone Sodium Succinate (Solu-Medrol 40 Mg) 40 mg IV Q8H AURELIO Morphine Sulfate (Morphine Vial*) 2 mg IV Q4H PRN Omeprazole (Prilosec Cap*) 40 mg PO BEDTIME A[facility]LIO Pharmacy Consult (Zosyn Per Pharmacy*) 1 note FOLLOW UP .ZOSYN PER PHARMACY [facility] Vital Signs: Temp Pulse Resp BP Pulse Ox 97.7 F 106 20 126/53 97 05/16/18 11:44 05/16/18 11:44 05/16/18 11:44 05/16/18 11:44 05/16/18 11:44 Oxygen Devices in Use Now: Nasal Cannula Appearance: Elderly female sitting up in bed in NAD Eyes: No Scleral Icterus Ears/Nose/Mouth/Throat: Mucous Membranes Moist Neck: Trachea Midline Respiratory: Symmetrical Chest Expansion and Respiratory Effort, - - Diminished throughout Cardiovascular: NL Sounds; No Murmurs; No JVD, No Edema Abdominal: NL Sounds; No Tenderness; No Distention Lymphatic: No Cervical Adenopathy Extremities: No Edema Skin: No Rash or Ulcers Neurological: Alert and Oriented x 3, NL Muscle Strength and Tone Result Diagrams: 05/14/18 05:17 05/14/18 05:17 Assess/Plan/Problems-Billing Assessment: Ms. Magana is a 77 yo F with a PMH of extensive pulmonary disease including COPD and lymphadenopathy (of uncertain cause) with chronic hypoxic respiratory failyre who was admitted on 05/13/18 with concern for worsening respiratory failure and need for usp placement. - Patient Problems (1) Acute and chronic respiratory failure with hypoxia Code(s): J96.21 - ACUTE AND CHRONIC RESPIRATORY FAILURE WITH HYPOXIA Comment: - Currently on home 3L [place]. - Suspect a component of COPD EXACERBATION though patient also has a multifactorial process involving interstitial lung disease and diffuse lymphadenopathy concerning for malignancy (though EBUS has been negative). - Switch to augmentin and continue steroids for now per Dr. Bran. - Poor prognosis, plan for hospice at discharge. (2) Atrial fibrillation Code(s): I48.91 - UNSPECIFIED ATRIAL FIBRILLATION Comment: - HR better controlled today. - Continue digoxin, diltiazem, bisoprolol. - Hold coumadin, INR 4.01, recheck in AM. (3) Diastolic CHF Code(s): I50.30 - UNSPECIFIED DIASTOLIC (CONGESTIVE) HEART FAILURE Comment: - CHRONIC, stable, euvolemic. Standing diuretic held. To be used prn for edema/ weight gain. (4) Hypertension Code(s): I10 - ESSENTIAL (PRIMARY) HYPERTENSION Comment: - BP well controlled. - Continue bisoprolol, diltiazem. (5) Chronic pain Code(s): G89.29 - OTHER CHRONIC PAIN Comment: - Continue prn norco. (6) GERD (gastroesophageal reflux disease) Code(s): K21.9 - GASTRO-ESOPHAGEAL REFLUX DISEASE WITHOUT ESOPHAGITIS Comment : - Continue omeprazole (7) Thrush Code(s): B37.0 - CANDIDAL STOMATITIS Comment: - Oropharyngeal. - Start clotrimazole troches. (8) DVT prophylaxis Comment: - Coumadin (9) DNR (do not resuscitate) Status and Disposition: Inpatient. patient hopeful for discharge to Hosp[facility] Residence, Social Workers aware and are following.
[2018-05-16] MEDS ORDERED: Warfarin TAB(*) 2 MG PO SCH (17:00)
[2018-05-16] MEDS ORDERED: Warfarin TAB(*) 2.5 MG PO SCH (17:00)
--- NOTE | 2018-05-16 18:01 | PN ---
Progress Note - Progress Note Date of Service: 05/16/18 - Pulm f/u note Note: Pt seen and examined this afternoon. Pt reported slight improvement in SOB. Having signficant dyspnea with minimal movement. No further episodes of hemoptysis. Active Medications Generic Name Dose Route Start Last Admin Trade Name Freq PRN Reason Stop Dose Admin Hydrocodone Bitart/Acetaminophen 1 tab 05/14/18 18:45 05/14/18 19:53 [place] 5-325 Tab* PO 1 tab Q4H PRN Administration PAIN Albuterol/Ipratropium 1 neb 05/13/18 16:36 05/16/18 17:29 Duoneb (Albuterol 2.5 Mg/Ipratropium 0.5 Mg) INH 1 neb [id number] AWAKE PRN Administration sob/wheexing Amoxicillin/Clavulanate Potassium 875 mg 05/16/18 21:00 Augmentin Tab* PO BID AURELIO Bisoprolol Fumarate 2.5 mg 05/13/18 21:00 05/16/18 07:38 Zebeta Tab* PO 2.5 mg BID AURELIO Administration Clotrimazole 10 mg 05/14/18 18:00 05/16/18 17:29 Mycelex Casimiro* PO 10 mg FIVE TIMES DAILY AURELIO Administration Digoxin 0.25 mg 05/17/18 09:00 Lanoxin Tab* PO QAM AURELIO Diltiazem HCl 360 mg 05/14/18 09:00 05/16/18 07:38 Cardizem Cd Cap* PO 360 mg QAM AURELIO Administration Methylprednisolone Sodium Succinate 40 mg 05/13/18 17:00 05/16/18 16:17 Solu-Medrol 40 Mg IV 40 mg Q8H AURELIO Administration Morphine Sulfate 2 mg 05/13/18 16:36 Morphine Vial* IV Q4H PRN DISCOMFORT Omeprazole 40 mg 05/13/18 21:00 05/15/18 20:02 Prilosec Cap* PO 40 mg BEDTIME AURELIO Administration Vital Signs Temp Pulse Resp BP Pulse Ox 97.7 F 106 20 126/53 97 05/16/18 11:44 05/16/18 11:44 05/16/18 11:44 05/16/18 11:44 05/16/18 11:44 Laboratory Results - last 24 hr 05/16/18 06:13 INR (Anticoag Therapy) 4.01 H O/E: Pt in NAD, thin female HEENT: PERRLA, No JVD Lungs: Diminished air entry b/l CVS: S1, S2, +, tachycardia+ Abd: Soft, BS+ Ext: No edema Neuro: No focal defecits I/R: 77 y o f with h/o severe COPD/emphysema with complicated course recently with recurrent hospitalizations for SOB, found to have significant mediastinal and hilar adenopathy, patchy air space opacities concerning for malignancy Pt had thoracentesis and bronchoscopy/EBUS that were non-diagnostic Has required multiple courses of abx recently C/o significant dyspnea and is concerned about being d/norma Had long discussion with her 2 sons and patient today regarding prognosis, approach to diagnosis, treatment implications Pt expressed desire to forgo any further invasive procedures and would want to be comfortable Verbalized understanding concequences including progression of suspected malignancy Pt understands limitations with available diagnostic approaches in her case She also understands she might not be able to tolerate any treatment that would be necessary She has expressed interest in palliative care and will request consultation from Dr Newman Pt would prefer not to be d/norma to [place] given her previous bad experience in [place] She would be interested in home hospice Will change abx to oral Will taper prednisone slowly c/w bronchodilators, O2 supplementation Awaiting palliative care consultation
[2018-05-16] MEDS: Omeprazole CAP* 20 MG PO SCH (20:28)
[2018-05-16] MEDS: Amoxicillin/Clavulanate TAB* 875 MG PO SCH (20:28)
[2018-05-16] MEDS ORDERED: Morphine INJ* 10 MG/ML 1 ML CARPUJECT IV PRN (20:50)
[2018-05-17] MEDS: methylPREDNISolone SOD 40 MG* 1 ML VIAL IV SCH ×3 (00:35→17:03)
[2018-05-17] MEDS: Clotrimazole TROCHE* 10 MG TROCHE PO SCH ×5 (05:10→21:15)
[2018-05-17] MEDS: Albuterol/Ipratropium NEB.SOL* Albuterol 2.5 MG/Ipratropium 0.5 MG 3 ML INH PRN (05:27)
[2018-05-17] MEDS: Amoxicillin/Clavulanate TAB* 875 MG PO SCH ×2 (08:56→20:07)
[2018-05-17] MEDS: Diltiazem CD CAP* 180 MG PO SCH (08:57)
[2018-05-17] MEDS: Digoxin TAB* 0.25 MG PO SCH (08:57)
[2018-05-17] MEDS: Bisoprolol TAB* 5 MG PO SCH ×2 (09:08→20:06)
[2018-05-17 10:15] LABS: INR 3.55 (0.77-1.02)
[2018-05-17] MEDS ORDERED: Atropine 1% (ORAL/SL)* 15 ML BTL SL PRN (10:27)
--- NOTE | 2018-05-17 12:06 | CONSULT ---
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 She had a pulmonary abscess with suspicion of malignancy in 2001, and underwent wedge resection with benign pathology. She also has AF, chronically anticoagulated on warfarin, and has diastolic CHF. She had a hip fracture in October 2017 with slow recovery due to pneumonia and hyponatremia due to SIADH, and has lost 65 pounds since that time (from 175 to 110 lbs) She was hospitalized recently and discharged on steroids, but failed to improve at home and became severely weak, prompting her rehospitalization. She currently has worserning mediastinal and hilar lymphadenopathy, although biopsies have been negative. Dr. Bran suspects malignancy, and feels she has a poor prognosis. She is unable to return home at this point and is hoping to move to the [facility] [place] residence. Lab Values: Abnormal Lab Results 05/17/18 09:05 INR (Anticoag Therapy) 3.55 H Laboratory Last Values WBC 12.3 10^3/ul (3.5-10.8) H 05/14/18 05:17 RBC 3.89 10^6/ul (4.00-5.40) L 05/14/18 05:17 Hgb 12.1 g/dl (12.0-16.0) 05/14/18 05:17 Hct 36 % (35-47) 05/14/18 05:17 MCV 93 fL (80-97) 05/14/18 05:17 MCH 31 pg (27-31) 05/14/18 05:17 MCHC 33 g/dl (31-36) 05/14/18 05:17 RDW 16 % (10.5-15) H 05/14/18 05:17 Plt Count 281 10^3/ul (150-450) 05/14/18 05:17 MPV 8.4 um3 (7.4-10.4) 05/14/18 05:17 Neut % (Auto) 93.4 % (38-83) H 05/14/18 05:17 Lymph % (Auto) 4.3 % (25-47) L 05/14/18 05:17 [place] % (Auto) 2.3 % (0-7) 05/14/18 05:17 Eos % (Auto) 0 % (0-6) 05/14/18 05:17 Baso % (Auto) 0 % (0-2) 05/14/18 05:17 Absolute Neuts (auto) 11.5 10^3/ul (1.5-7.7) H 05/14/18 05:17 Absolute Lymphs (auto) 0.5 10^3/ul (1.0-4.8) L 05/14/18 05:17 Absolute Monos (auto) 0.3 10^3/ul (0-0.8) 05/14/18 05:17 Absolute Eos (auto) 0 10^3/ul (0-0.6) 05/14/18 05:17 Absolute Basos (auto) 0 10^3/ul (0-0.2) 05/14/18 05:17 Absolute Nucleated RBC 0 10^3/ul 05/14/18 05:17 Nucleated RBC % 0 05/14/18 05:17 INR (Anticoag Therapy) 3.55 (0.77-1.02) H 05/17/18 09:05 APTT 26.0 seconds (26.0-36.3) 05/13/18 13:30 VBG pH 7.42 (7.33-7.43) 05/13/18 13:30 VBG pCO2 55 mmHg (41-51) H 05/13/18 13:30 VBG pO2 29 mmHg (35-45) L 05/13/18 13:30 VBG HCO3 31.2 mmol/L (24-28) H 05/13/18 13:30 VBG O2 Saturation 61.7 % (70-80) L 05/13/18 13:30 VBG Base Excess 9.3 (0-4) H 05/13/18 13:30 Sodium 136 mmol/L (135-145) 05/14/18 05:17 Potassium 4.0 mmol/L (3.5-5.0) 05/14/18 05:17 Chloride 97 mmol/L (101-111) L 05/14/18 05:17 Carbon Dioxide 27 mmol/L (22-32) 05/14/18 05:17 Anion Gap 12 mmol/L (2-11) H 05/14/18 05:17 BUN 11 mg/dL (6-24) 05/14/18 05:17 Creatinine 0.41 mg/dL (0.51-0.95) L 05/14/18 05:17 Est GFR ( Amer) 181.5 (>60) 05/14/18 05:17 Est GFR (Non-Af Amer) 150.0 (>60) 05/14/18 05:17 BUN/Creatinine Ratio 26.8 (8-20) H 05/14/18 05:17 Glucose 129 mg/dL (70-100) H 05/14/18 05:17 Lactic Acid 1.4 mmol/L (0.5-2.0) 05/13/18 13:30 Calcium 8.2 mg/dL (8.6-10.3) L 05/14/18 05:17 Phosphorus 2.5 mg/dL (2.5-5.0) 05/13/18 13:30 Magnesium 1.9 mg/dL (1.9-2.7) 05/13/18 13:30 Total Bilirubin 0.60 mg/dL (0.2-1.0) 05/13/18 13:30 AST 21 U/L (13-39) 05/13/18 13:30 ALT 20 U/L (7-52) 05/13/18 13:30 Alkaline Phosphatase 59 U/L (34-104) 05/13/18 13:30 Troponin I 0.01 ng/mL (<0.04) 05/13/18 19:51 B-Natriuretic Peptide 170 pg/mL (-100) H 05/13/18 13:30 Total Protein 6.6 g/dL (6.4-8.9) 05/13/18 13:30 Albumin 3.3 g/dL (3.2-5.2) 05/13/18 13:30 Globulin 3.3 g/dL (2-4) 05/13/18 13:30 Albumin/Globulin Ratio 1.0 (1-3) 05/13/18 13:30 Digoxin 0.9 ng/ml (0.8-2.0) 05/13/18 13:30 - Objective Active Medications: Hydrocodone Bitart/Acetaminophen ([place] 5-325 Tab*) 1 tab PO Q4H PRN PRN Reason: PAIN Last Admin: 05/14/18 19:53 Dose: 1 tab Albuterol/Ipratropium (Duoneb (Albuterol 2.5 Mg/Ipratropium 0.5 Mg)) 1 neb INH [id number] AWAKE PRN PRN Reason: sob/wheexing Last Admin: 05/17/18 05:27 Dose: 1 neb Amoxicillin/Clavulanate Potassium (Augmentin Tab*) 875 mg PO BID [facility] Last Admin: 05/17/18 08:56 Dose: 875 mg Atropine Sulfate (Atropine 1% (Oral/Sl)*) 2 drop SL Q2H PRN PRN Reason: DISCOMFORT Bisoprolol Fumarate (Zebeta Tab*) 2.5 mg PO BID [facility] Last Admin: 05/17/18 09:08 Dose: 2.5 mg Clotrimazole (Mycelex Casimiro*) 10 mg PO FIVE TIMES DAILY [facility] Last Admin: 05/17/18 08:56 Dose: 10 mg Digoxin (Lanoxin Tab*) 0.25 mg PO QAM [facility] Last Admin: 05/17/18 08:57 Dose: 0.25 mg Diltiazem HCl (Cardizem Cd Cap*) 360 mg PO QAM [facility] Last Admin: 05/17/18 08:57 Dose: 360 mg Lorazepam (Ativan Tab(*)) 0.5 mg PO Q4H PRN PRN Reason: ANXIETY Methylprednisolone Sodium Succinate (Solu-Medrol 40 Mg) 40 mg IV Q8H [facility] Last Admin: 05/17/18 08:56 Dose: 40 mg Morphine Sulfate (Morphine Inj (Syringe)*) 2 mg IV Q4H PRN PRN Reason: DISCOMFORT Morphine Sulfate (Morphine Oral Concentrate*) 5 mg SL Q2H PRN PRN Reason: Pain/Tachypnea RR>24 Omeprazole (Prilosec Cap*) 40 mg PO BEDTIME [facility] Last Admin: 05/16/18 20:28 Dose: 40 mg Vital Signs: Vital Signs: Temp Pulse Resp BP Pulse Ox 97.8 F 100 20 123/54 99 05/17/18 03:35 05/17/18 08:57 07/25/18 07:42 05/17/18 03:35 05/17/18 05:27 Patient Weight: Weight 107 lb 14.4 oz Intake and Output: Intake & Output 05/15/18 05/16/18 05/17/18 05/18/18 06:59 06:59 06:59 06:59 Intake Total 925 2440 414 250 Output Total 0 200 Balance 925 2240 414 250 Intake: IV Fluids 5 50 214 ABX - ZOSYN 5 50 214 IVPB 100 310 ABX - ZOSYN 100 310 Oral 820 2080 200 250 Output: Urine 0 200 Other: # Bowel Movements 0 0 0 # Voids 1 1 ADLs: Meal Record Start: 05/13/18 17: 07 Freq: DAILY@0900,1400,1800 Status: Active Protocol: Created 05/13/18 17:07 System (Rec: 05/13/18 17:07 System [id number]-C13) Document 05/13/18 18:00 [id number] (Rec: 05/13/18 21:15 [id number] TELE-C01) Document 05/14/18 09:00 [id number] (Rec: 05/14/18 12:16 [id number] TELE-C11) Document 05/14/18 14:00 [id number] (Rec: 05/14/18 15:13 [id number] TELE-C11) Document 05/14/18 18:00 [id number] (Rec: 05/14/18 19:59 [id number] TELE-C10) Document 05/15/18 09:00 [id number] (Rec: 05/15/18 10:54 [id number] TELE-C11) Document 05/15/18 14:00 [id number] (Rec: 05/15/18 14:55 [id number] TELE-C11) Document 05/15/18 18:00 [id number] (Rec: 05/15/18 19:17 [id number] TELE-C10) Document 05/15/18 19:46 [id number] (Rec: 05/15/18 19:46 [id number] TELE-C10) Document 05/16/18 09:00 [id number] (Rec: 05/16/18 10:18 [id number] TELE-C11) Document 05/16/18 14:00 [id number] (Rec: 05/16/18 14:37 [id number] TELE-C11) Document 05/16/18 15:12 [id number] (Rec: 05/16/18 15:12 [id number] TELE-C11) Document 05/16/18 18:00 [id number] (Rec: 05/16/18 20:57 [id number] TELE-C05) Document 05/17/18 09:00 [id number] (Rec: 05/17/18 09:21 [id number] TELE-C11) Intake and Output Start: 05/13/18 12: 53 Freq: Status: Active Protocol: Created 05/13/18 12:53 System (Rec: 05/13/18 12:53 System [id number]) Intake and Output Start: 05/13/18 17: 07 Freq: DAILY@0600,1400,2200 Status: Active Protocol: Created 05/13/18 17:07 System (Rec: 05/13/18 17:07 System TELE-C13) Document 05/13/18 21:18 [id number] (Rec: 05/13/18 21:19 [id number] TELE-C01) Document 05/14/18 06:00 [id number] (Rec: 05/14/18 06:26 IX04) Document 05/14/18 14:00 [id number] (Rec: 05/14/18 15:13 [id number] TELE-C11) Document 05/14/18 20:47 [id number] (Rec: 05/14/18 20:48 [id number] TELE-C13) Document 05/15/18 06:00 [id number] (Rec: 05/15/18 06:10 IX04) Document 05/15/18 14:00 [id number] (Rec: 05/15/18 14:55 [id number] TELE-C11) Document 05/15/18 21:29 [id number] (Rec: 05/15/18 21:30 [id number] TELE-C10) Document 05/16/18 06:00 [id number] (Rec: 05/16/18 06:21 [id number]) Document 05/16/18 14:00 [id number] (Rec: 05/16/18 14:37 [id number] TELE-C11) Document 05/16/18 22:00 [id number] (Rec: 05/16/18 22:30 [id number] TELE-C05) Document 05/17/18 06:00 [id number] (Rec: 05/17/18 07:10 [id number]) General Impression: Cachectic pleasant woman visibly dyspneic, requesting morphine. Eyes: No Scleral Icterus Ears/Nose/Mouth/Throat: Mucous Membranes Moist Neck: Trachea Midline Cardiovascular: NL Sounds; No Murmurs; No JVD, No Edema Abdominal: NL Sounds; No Tenderness; No Distention Extremities: No Edema Neurological: Alert and Oriented x 3, NL Muscle Strength and Tone - Assessment Assessment: This woman has end-stage lung disease with COPD and bronchiectasis, chronic respiratory failure, and is appropriate for hospice services even without biopsy -proven malignancy. She should be getting regular morphine. Unfortunately there are no beds available at the [facility] [place] residence today, but I am hoping one will become available soon. MOLST form completed with comfort care expectations. - Plan Consult Plan (MU): Hospice - Time On Unit Date of Evaluation: 05/17/18 Hospice Consult Time in: 11:30 Hospice Consult Time Out: 12:10 Hospice Consult Time Total: 40 > 50% of Time Spend In Counseling or Coordinating Care: Yes
[2018-05-17] MEDS: LORazepam TAB(*) 0.5 MG PO PRN ×3 (12:22→21:15)
[2018-05-17] MEDS: Morphine ORAL CONCENTRATE* 5 MG/0.25 ML ORAL.SYRIN SL PRN ×3 (12:22→17:08)
--- NOTE | 2018-05-17 15:21 | PN ---
Subjective Date of Service: 05/17/18 Interval History: HOSPITALIST PROGRESS NOTE Patient seen and examined at bedside. Care reviewed and d/w Angelica Turner RN. She c/o dyspnea, not improved with IV morphine. Also anxious to meet with Dr. Newman. Family History: Unchanged from Admission Social History: Unchanged from Admission Past Medical History: Unchanged from Admission Objective Active Medications: Hydrocodone Bitart/Acetaminophen ([place] 5-325 Tab*) 1 tab PO Q4H PRN PRN Reason: PAIN Last Admin: 05/14/18 19:53 Dose: 1 tab Albuterol/Ipratropium (Duoneb (Albuterol 2.5 Mg/Ipratropium 0.5 Mg)) 1 neb INH [id number] AWAKE PRN PRN Reason: sob/wheexing Last Admin: 05/17/18 05:27 Dose: 1 neb Amoxicillin/Clavulanate Potassium (Augmentin Tab*) 875 mg PO BID [facility] Last Admin: 05/17/18 08:56 Dose: 875 mg Atropine Sulfate (Atropine 1% Ophth.Marni*) 2 drop SL Q2H PRN PRN Reason: DISCOMFORT Bisoprolol Fumarate (Zebeta Tab*) 2.5 mg PO BID [facility] Last Admin: 05/17/18 09:08 Dose: 2.5 mg Clotrimazole (Mycelex Casimiro*) 10 mg PO FIVE TIMES DAILY [facility] Last Admin: 05/17/18 08:56 Dose: 10 mg Digoxin (Lanoxin Tab*) 0.25 mg PO QAM [facility] Last Admin: 05/17/18 08:57 Dose: 0.25 mg Diltiazem HCl (Cardizem Cd Cap*) 360 mg PO QAM [facility] Last Admin: 05/17/18 08:57 Dose: 360 mg Lorazepam (Ativan Tab(*)) 0.5 mg PO Q4H PRN PRN Reason: ANXIETY Last Admin: 05/17/18 12:22 Dose: 0.5 mg Methylprednisolone Sodium Succinate (Solu-Medrol 40 Mg) 40 mg IV Q8H [facility] Last Admin: 05/17/18 08:56 Dose: 40 mg Morphine Sulfate (Morphine Inj (Syringe)*) 2 mg IV Q4H PRN PRN Reason: DISCOMFORT Morphine Sulfate (Morphine Oral Concentrate*) 5 mg SL Q2H PRN PRN Reason: Pain/Tachypnea RR>24 Last Admin: 05/17/18 14:46 Dose: 5 mg Omeprazole (Prilosec Cap*) 40 mg PO BEDTIME AURELIO Last Admin: 05/16/18 20:28 Dose: 40 mg Vital Signs - 8 hr 05/17/18 05/17/18 05/17/18 07:31 07:42 08:57 Temperature 97.7 F Pulse Rate 133 100 Respiratory 24 20 Rate Blood Pressure 148/66 (mmHg) O2 Sat by Pulse 96 Oximetry 05/17/18 05/17/18 05/17/18 11:11 12:22 14:46 Temperature 97.9 F Pulse Rate 103 Respiratory 16 32 24 Rate Blood Pressure 134/71 (mmHg) O2 Sat by Pulse 98 Oximetry Oxygen Devices in Use Now: Nasal Cannula - 4 liters Appearance: Elderly frail lady lying in bed in mild respiratory distress, appears uncomfortable. Eyes: No Scleral Icterus Ears/Nose/Mouth/Throat: Mucous Membranes Moist Neck: Trachea Midline Respiratory: Symmetrical Chest Expansion and Respiratory Effort, - - BS+ bilaterally diminished Cardiovascular: RRR - Normal S1 and S2 Abdominal: NL Sounds; No Tenderness; No Distention Neurological: Alert and Oriented x 3 Result Diagrams: 05/14/18 05:17 05/14/18 05:17 Assess/Plan/Problems-Billing Assessment: Ms. Magana is a 77 yo F with a PMH of extensive pulmonary disease including COPD and lymphadenopathy (of uncertain cause) with chronic hypoxic respiratory failure who was admitted on 05/13/18 with worsening respiratory failure, now requesting comfort care only. - Patient Problems (1) Acute and chronic respiratory failure with hypoxia Comment: - Secondary to severe COPD with exacerbation associated with multifactorial process involving interstitial lung disease and diffuse lymphadenopathy concerning for malignancy (though EBUS has been negative). She had a long conversation with Dr Bran and is not interested in further invasive w/u - plan now is for Hospice and to keep her comfortable. - Will add Morphine concentrate, Ativan, and Atropine. - [facility]. (2) Thrush Comment: - Continue clotrimazole troches. (3) Atrial fibrillation Comment: - Continue digoxin, diltiazem, bisoprolol. - Coumadin on hold due to supratherapeutic INR. (4) Chronic pain Comment: - Continue prn norco. (5) GERD (gastroesophageal reflux disease) Comment: - Continue omeprazole. (6) Hypertension Comment: - BP well controlled. - Continue bisoprolol, diltiazem. (7) DNR (do not resuscitate) Status and Disposition: Inpatient. Plan [facility].
[2018-05-17] MEDS: Omeprazole CAP* 20 MG PO SCH (20:05)
[2018-05-18] MEDS: methylPREDNISolone SOD 40 MG* 1 ML VIAL IV SCH ×3 (01:12→16:22)
[2018-05-18] MEDS: Morphine ORAL CONCENTRATE* 5 MG/0.25 ML ORAL.SYRIN SL PRN ×5 (03:03→16:26)
[2018-05-18] MEDS: LORazepam TAB(*) 0.5 MG PO PRN ×3 (04:45→19:08)
[2018-05-18] MEDS: Albuterol/Ipratropium NEB.SOL* Albuterol 2.5 MG/Ipratropium 0.5 MG 3 ML INH PRN (04:56)
[2018-05-18] MEDS: Clotrimazole TROCHE* 10 MG TROCHE PO SCH ×5 (06:24→22:15)
[2018-05-18] MEDS: Morphine VIAL* 4 MG/ML VIAL (1 ml vial) IV PRN (06:30)
[2018-05-18 09:10] VITALS: BP 132/68
[2018-05-18] MEDS: Bisoprolol TAB* 5 MG PO SCH ×2 (09:13→22:14)
[2018-05-18] MEDS: Digoxin TAB* 0.25 MG PO SCH (09:13)
[2018-05-18] MEDS: Amoxicillin/Clavulanate TAB* 875 MG PO SCH ×2 (09:15→22:14)
[2018-05-18] MEDS: Diltiazem CD CAP* 180 MG PO SCH (09:15)
[2018-05-18 13:02] LABS: INR 2.62 (0.77-1.02)
--- NOTE | 2018-05-18 13:28 | PN ---
Subjective Date of Service: 05/18/18 Interval History: HOSPITALIST PROGRESS NOTE Patient seen and examined at bedside. Care reviewed and d/w Arleen Wellington RN. Her dyspnea is unchanged, feels uncomfortable. Hoping she'll be offered a bed at the [facility] residence. Family History: Unchanged from Admission Social History: Unchanged from Admission Past Medical History: Unchanged from Admission Objective Active Medications: Hydrocodone Bitart/Acetaminophen ([place] 5-325 Tab*) 1 tab PO Q4H PRN PRN Reason: PAIN Last Admin: 05/14/18 19:53 Dose: 1 tab Albuterol/Ipratropium (Duoneb (Albuterol 2.5 Mg/Ipratropium 0.5 Mg)) 1 neb INH [id number] AWAKE PRN PRN Reason: sob/wheexing Last Admin: 05/18/18 04:56 Dose: 1 neb Amoxicillin/Clavulanate Potassium (Augmentin Tab*) 875 mg PO BID [facility] Last Admin: 05/18/18 09:15 Dose: 875 mg Atropine Sulfate (Atropine 1% Ophth.Marni*) 2 drop SL Q2H PRN PRN Reason: DISCOMFORT Bisoprolol Fumarate (Zebeta Tab*) 2.5 mg PO BID [facility] Last Admin: 05/18/18 09:13 Dose: 2.5 mg Clotrimazole (Mycelex Casimiro*) 10 mg PO FIVE TIMES DAILY [facility] Last Admin: 05/18/18 09:15 Dose: 10 mg Digoxin (Lanoxin Tab*) 0.25 mg PO QAM [facility] Last Admin: 05/18/18 09:13 Dose: 0.25 mg Diltiazem HCl (Cardizem Cd Cap*) 360 mg PO QAM [facility] Last Admin: 05/18/18 09:15 Dose: 360 mg Lorazepam (Ativan Tab(*)) 0.5 mg PO Q4H PRN PRN Reason: ANXIETY Last Admin: 05/18/18 04:45 Dose: 0.5 mg Methylprednisolone Sodium Succinate (Solu-Medrol 40 Mg) 40 mg IV Q8H [facility] Last Admin: 05/18/18 09:13 Dose: 40 mg Morphine Sulfate (Morphine Vial*) 2 mg IV Q4H PRN PRN Reason: DISCOMFORT Last Admin: 05/18/18 06:30 Dose: 2 mg Morphine Sulfate (Morphine Oral Concentrate*) 10 mg SL Q1H PRN PRN Reason: Pain/Tachypnea RR>24 Omeprazole (Prilosec Cap*) 40 mg PO BEDTIME [facility] Last Admin: 05/17/18 20:05 Dose: 40 mg Warfarin Sodium (Coumadin Tab(*)) 3 mg PO DAILY@1700 [facility]; Protocol Vital Signs - 8 hr 05/18/18 05/18/18 05/18/18 06:30 07:57 07:58 Pulse Rate Respiratory 24 30 30 Rate Blood Pressure (mmHg) O2 Sat by Pulse Oximetry 05/18/18 05/18/18 05/18/18 07:59 08:00 08:50 Pulse Rate 119 Respiratory 30 30 Rate Blood Pressure 132/68 (mmHg) O2 Sat by Pulse 89 Oximetry 05/18/18 05/18/18 05/18/18 09:09 09:13 12:14 Pulse Rate 111 111 Respiratory 20 28 Rate Blood Pressure 132/68 (mmHg) O2 Sat by Pulse Oximetry 05/18/18 12:21 Pulse Rate Respiratory 20 Rate Blood Pressure (mmHg) O2 Sat by Pulse Oximetry Oxygen Devices in Use Now: Nasal Cannula Appearance: Elderly cachectic lady lying in bed in mild respiratory distress Eyes: No Scleral Icterus Ears/Nose/Mouth/Throat: Mucous Membranes Moist Neck: Trachea Midline Respiratory: Symmetrical Chest Expansion and Respiratory Effort, - - BS+ bilaterally diminished Cardiovascular: - - Normal S1 and S2 Neurological: Alert and Oriented x 3 Result Diagrams: 05/14/18 05:17 05/14/18 05:17 Assess/Plan/Problems-Billing Assessment: Ms. Magana is a 77 yo F with a PMH of extensive pulmonary disease including COPD and lymphadenopathy (of uncertain cause) with chronic hypoxic respiratory failure who was admitted on 05/13/18 with worsening respiratory failure, now requesting comfort care only. - Patient Problems (1) Acute and chronic respiratory failure with hypoxia Comment: - Secondary to severe COPD with exacerbation associated with multifactorial process involving interstitial lung disease and diffuse lymphadenopathy concerning for malignancy (though EBUS has been negative). She had a long conversation with Dr Bran and is not interested in further invasive w/u - plan now is for Hospice and to keep her comfortable. - Increase Morphine concentrate, continue Ativan, and Atropine. - Plan to d/c to Hospice facility. (2) Thrush Comment: - Continue clotrimazole troches. (3) Atrial fibrillation Comment: - Continue digoxin, diltiazem, bisoprolol. - D/w patient Warfarin is not adding to her comfort, but she states she "doesn' t mind" having blood tests - will resume it. (4) Chronic pain Comment: - Continue prn norco. (5) GERD (gastroesophageal reflux disease) Comment: - Continue omeprazole. (6) Hypertension Comment: - BP well controlled. - Continue bisoprolol, diltiazem. (7) DNR (do not resuscitate) Status and Disposition: Inpatient. Plan to discharge to Hospice Facility.
[2018-05-18] MEDS ORDERED: Warfarin TAB(*) 3 MG PO SCH (17:00)
--- NOTE | 2018-05-18 18:37 | PN ---
Progress Note - Progress Note Date of Service: 05/18/18 - Pulm f/u note Note: Pt seen and examined bedside, interim events noted. Pt reprots slight improvement in SOB, reports fatigue Active Medications Generic Name Dose Route Start Last Admin Trade Name Freq PRN Reason Stop Dose Admin Hydrocodone Bitart/Acetaminophen 1 tab 05/14/18 18:45 05/14/18 19:53 [place] 5-325 Tab* PO 1 tab Q4H PRN Administration PAIN Albuterol/Ipratropium 1 neb 05/13/18 16:36 05/18/18 04:56 Duoneb (Albuterol 2.5 Mg/Ipratropium 0.5 Mg) INH 1 neb [id number] AWAKE PRN Administration sob/wheexing Amoxicillin/Clavulanate Potassium 875 mg 05/16/18 21:00 05/18/18 09:15 Augmentin Tab* PO 875 mg BID [facility] Administration Atropine Sulfate 2 drop 05/17/18 12:50 Atropine 1% Ophth.Marni* SL Q2H PRN DISCOMFORT Bisoprolol Fumarate 2.5 mg 05/13/18 21:00 05/18/18 09:13 Zebeta Tab* PO 2.5 mg BID [facility] Administration Clotrimazole 10 mg 05/14/18 18:00 05/18/18 15:16 Mycelex Casimiro* PO Not Given FIVE TIMES DAILY [facility] Digoxin 0.25 mg 05/17/18 09:00 05/18/18 09:13 Lanoxin Tab* PO 0.25 mg QAM [facility] Administration Diltiazem HCl 360 mg 05/14/18 09:00 05/18/18 09:15 Cardizem Cd Cap* PO 360 mg QAM [facility] Administration Lorazepam 0.5 mg 05/17/18 10:28 05/18/18 13:55 Ativan Tab(*) PO 0.5 mg Q4H PRN Administration ANXIETY Methylprednisolone Sodium Succinate 40 mg 05/13/18 17:00 05/18/18 16:22 Solu-Medrol 40 Mg IV 40 mg Q8H [facility] Administration Morphine Sulfate 2 mg 05/18/18 03:10 05/18/18 06:30 Morphine Vial* IV 2 mg Q4H PRN Administration DISCOMFORT Morphine Sulfate 10 mg 05/18/18 13:22 05/18/18 16:26 Morphine Oral Concentrate* SL 10 mg Q1H PRN Administration Pain/Tachypnea RR>24 Omeprazole 40 mg 05/13/18 21:00 05/17/18 20:05 Prilosec Cap* PO 40 mg BEDTIME [facility] Administration Warfarin Sodium 3 mg 05/18/18 17:00 05/18/18 16:22 Coumadin Tab(*) PO 3 mg DAILY@1700 [facility] Administration Protocol Vital Signs Temp Pulse Resp BP Pulse Ox 97.5 F 111 30 132/68 89 05/17/18 19:20 05/18/18 09:13 05/18/18 16:26 05/18/18 09:09 05/18/18 08:50 O/E: Pt in NAD, thin female HEENT: PERRLA, No JVD Lungs: Diminished air entry b/l CVS: S1, S2, +, tachycardia+ Abd: Soft, BS+ Ext: No edema Neuro: No focal defecits Laboratory Results - last 24 hr 05/18/18 12:48 INR (Anticoag Therapy) 2.62 H I/R: 77 y o f with h/o severe COPD/emphysema with complicated course recently with recurrent hospitalizations for SOB, found to have significant mediastinal and hilar adenopathy, patchy air space opacities concerning for malignancy Pt had thoracentesis and bronchoscopy/EBUS that were non-diagnostic Has required multiple courses of abx recently Had long discussion with her 2 sons and patient Pt expressed desire to forgo any further invasive procedures and would want to be comfortable Verbalized understanding concequences including progression of suspected malignancy Palliative consultation from Dr Trent bell Pt awaiting hospice Will taper prednisone slowly c/w bronchodilators, O2 supplementation
[2018-05-18] MEDS: Omeprazole CAP* 20 MG PO SCH (22:15)
[2018-05-19] MEDS: LORazepam TAB(*) 0.5 MG PO PRN (00:53)
[2018-05-19] MEDS: methylPREDNISolone SOD 40 MG* 1 ML VIAL IV SCH ×2 (00:56→10:09)
[2018-05-19] MEDS: Atropine 1% OPHTH.SOL* 2 ML BOT - 2 ML SL PRN ×9 (03:43→16:45)
[2018-05-19] MEDS: Morphine VIAL* 4 MG/ML VIAL (1 ml vial) IV PRN ×4 (04:10→08:03)
[2018-05-19] MEDS: Clotrimazole TROCHE* 10 MG TROCHE PO SCH ×2 (05:52→10:33)
[2018-05-19] MEDS ORDERED: LORazepam INJ* 2 MG/ML 1 ML VIAL IV PUSH PRN ×2 (07:15→10:00)
[2018-05-19] MEDS: Morphine ORAL CONCENTRATE* 5 MG/0.25 ML ORAL.SYRIN SL SCH ×2 (07:43→13:44)
[2018-05-19] MEDS: Bisoprolol TAB* 5 MG PO SCH (08:07)
[2018-05-19] MEDS: Digoxin TAB* 0.25 MG PO SCH (08:07)
[2018-05-19] MEDS: Diltiazem CD CAP* 180 MG PO SCH (08:07)
[2018-05-19] MEDS: Amoxicillin/Clavulanate TAB* 875 MG PO SCH (08:07)
[2018-05-19] MEDS ORDERED: Morphine VIAL* 4 MG/ML VIAL (1 ml vial) IV PRN (08:59)
[2018-05-19] MEDS: Morphine ORAL CONCENTRATE* 5 MG/0.25 ML ORAL.SYRIN SL PRN ×7 (09:04→16:44)
[2018-05-19] MEDS ORDERED: Morphine INJ* 2 MG/ML 1 ML SYRINGE (TWO MG - NEW SYRINGE VERSION) IV PRN (11:00)
[2018-05-19] MEDS ORDERED: methylPREDNISolone SOD 40 MG* 1 ML VIAL IV SCH (13:00)
--- NOTE | 2018-05-19 13:41 | PN ---
Subjective Date of Service: 05/19/18 Interval History: HOSPITALIST PROGRESS NOTE Patient seen and examined at bedside. Care reviewed and d/w Fany Triana RN. She was more uncomfortable overnight requiring higher and more frequent doses of Morphine, Ativan, and Atropine. Family History: Unchanged from Admission Social History: Unchanged from Admission Past Medical History: Unchanged from Admission Objective Active Medications: Albuterol/Ipratropium (Duoneb (Albuterol 2.5 Mg/Ipratropium 0.5 Mg)) 1 neb INH [id number] AWAKE PRN PRN Reason: sob/wheexing Last Admin: 05/18/18 04:56 Dose: 1 neb Atropine Sulfate (Atropine 1% Ophth.Marni*) 2 drop SL Q30M PRN PRN Reason: Terminal secretions Last Admin: 05/19/18 12:54 Dose: 2 drop Lorazepam (Ativan Tab(*)) 0.5 mg PO Q4H PRN PRN Reason: ANXIETY Last Admin: 05/19/18 00:53 Dose: 0.5 mg Lorazepam (Ativan Inj*) 0.5 mg IV PUSH Q2H PRN PRN Reason: ANXIETY Last Admin: 05/19/18 12:55 Dose: 0.5 mg Methylprednisolone Sodium Succinate (Solu-Medrol 40 Mg) 40 mg IV Q12H [facility] Morphine Sulfate (Morphine Oral Concentrate*) 10 mg SL Q1H PRN PRN Reason: Pain/Tachypnea RR>24 Last Admin: 05/19/18 13:01 Dose: 10 mg Morphine Sulfate (Morphine Oral Concentrate*) 10 mg SL Q6H [facility] Last Admin: 05/19/18 07:43 Dose: 10 mg Morphine Sulfate (Morphine Inj (Syringe)*) 4 mg IV Q1H PRN PRN Reason: DISCOMFORT Omeprazole (Prilosec Cap*) 40 mg PO BEDTIME [facility] Last Admin: 05/18/18 22:15 Dose: 40 mg Vital Signs - 8 hr 05/19/18 05/19/18 05/19/18 05:48 05:49 07:24 Respiratory 26 26 22 Rate 05/19/18 05/19/18 05/19/18 07:25 07:43 07:52 Respiratory 22 24 26 Rate 05/19/18 05/19/18 05/19/18 08:00 08:03 09:04 Respiratory 26 26 26 Rate 07/27/18 07/27/18 07/27/18 09:07 09:34 10:06 Respiratory 26 24 24 Rate 05/19/18 05/19/18 05/19/18 10:33 11:07 11:22 Respiratory 22 20 24 Rate 05/19/18 05/19/18 05/19/18 11:37 12:04 12:55 Respiratory 24 24 20 Rate 05/19/18 05/19/18 13:01 13:13 Respiratory 26 26 Rate Oxygen Devices in Use Now: OxyMask Appearance: Cachectic elderly lady lying in bed unresponsive, still has labored breathing, although no longer tachypneic. Eyes: No Scleral Icterus Ears/Nose/Mouth/Throat: Mucous Membranes Moist Neck: Trachea Midline Respiratory: Symmetrical Chest Expansion and Respiratory Effort, - - BS+ bilaterally diminished Cardiovascular: - - Normal S1 and S2, irregularly irregular Neurological: - - Unresponsive Result Diagrams: 05/14/18 05:17 05/14/18 05:17 Assess/Plan/Problems-Billing Assessment: Ms. Magana is a 77 yo F with a PMH of extensive pulmonary disease including COPD and lymphadenopathy (of uncertain cause) with chronic hypoxic respiratory failure who was admitted on 05/13/18 with worsening respiratory failure, now requesting comfort care only. - Patient Problems (1) Acute and chronic respiratory failure with hypoxia Comment: - Secondary to severe COPD with exacerbation associated with multifactorial process involving interstitial lung disease and diffuse lymphadenopathy concerning for malignancy (though EBUS has been negative). No pneumonia this time. - She had a long conversation with Dr Bran and is not interested in further invasive w/u - plan now is for Hospice and to keep her comfortable. - Increase Morphine concentrate, continue Ativan, and Atropine. - Original plan was to d/c to Hospice facility but patient's condition has deteriorated and she's now actively dying. Will keep her in the hospital. (2) Atrial fibrillation Comment: - Unresponsive now - will d/c PO digoxin, diltiazem, bisoprolol, warfarin. (3) Severe protein-calorie malnutrition Comment: - As evidenced by weight loss >35% in 7 months, BMI 16, and temporal wasting - secondary to consumption from severe COPD. (4) DNR (do not resuscitate) Status and Disposition: Inpatient. Plan to discharge to Hospice Facility.
--- NOTE | 2018-05-20 07:18 | DS ---
CC: Dr. Lizbeth Doshi; Dr. Bran DISCHARGE SUMMARY: DATE OF ADMISSION: 05/13/18. DATE OF : 05/19/18. BLOCK HAND: Dr. Bran. DISCHARGE DIAGNOSES: 1. Acute on chronic hypoxemic respiratory failure. 2. Chronic obstructive pulmonary disease exacerbation secondary to bronchitis. 3. Interstitial lung disease and diffuse lymphadenopathy concerning for malignancy. 4. Severe protein-calorie malnutrition. 5. Atrial fibrillation. 6. Diastolic congestive heart failure, not in acute exacerbation at this time. 7. History of pulmonary abscess status post wedge resection. 8. Syndrome of inappropriate antidiuretic hormone secretion. 9. Bronchiectasis. 10. Chronic pain. HOSPITAL COURSE: Mrs. Magana was a 77-year-old lady with a past medical history as stated above that presented to the emergency room on 05/13/18 with complaints of weakness and shortness of breath. She had had a recent admission to [facility] and had been discharged on 05/11/18. She states that at that time she was feeling better, but 2 days later her symptoms had worsened. For more details of her presentation, I refer you to her history and physical. The patient had an extensive pulmonary history and was being worked up by Dr. Bran as outpatient. There was much concern for malignancy given extensive mediastinal and hilar lymphadenopathy even though the patient had a negative bronchoscopy. A repeat EBUS was planned for 05/31/18 as outpatient. But as the patient's respiratory symptoms had recurred, she was admitted for further evaluation. The patient was started on antibiotics and steroids with no significant improvement. She was seen by Dr. Bran and she had a long discussion with the patient and her 2 sons regarding prognosis, approach, diagnosis, treatment implications and patient expressed desire to forgo any further invasive procedures and her wish was to be kept comfortable. At that point, she was referred to Hospice and was seen in consultation by Dr. Krystin Newman. They agreed that the patient had end-stage lung disease with COPD and bronchiectasis , chronic respiratory failure and was appropriate for hospice services even without biopsy proven malignancy. The patient was started on comfort care medications and the original plan was for her to be discharged to the [facility] for hospice on 05/20/18, but the patient's condition continued to decline and she passed on 05/19/18 at 5:43 p.m. TIME SPENT: Approximately 40 minutes was spent to complete this discharge. [id number]/CPS #: [id number] ELVIS
== END 2018-05-19 17:43 | disposition expired | DRG 189 ==
LOC: ED 12:35 → MEDTELE 16:36
PROVIDERS: ADMIT Internal Medicine; ATTEND Internal Medicine
DX: J96.21 Acute and chronic respiratory failure with hypoxia (principal); E43 Unspecified severe protein-calorie malnutrition; J44.1 Chronic obstructive pulmonary disease with (acute) exacerbation; Z68.1 Body mass index [BMI] 19.9 or less, adult; I50.30 Unspecified diastolic (congestive) heart failure; E22.2 Syndrome of inappropriate secretion of antidiuretic hormone; J40 Bronchitis, not specified as acute or chronic; Z66 Do not resuscitate; R59.1 Generalized enlarged lymph nodes; I48.91 Unspecified atrial fibrillation; I11.0 Hypertensive heart disease with heart failure; B37.9 Candidiasis, unspecified; G89.29 Other chronic pain; Z51.5 Encounter for palliative care; Z99.81 Dependence on supplemental oxygen; Z79.01 Long term (current) use of anticoagulants; Z79.52 Long term (current) use of systemic steroids; Z79.899 Other long term (current) drug therapy; Z87.891 Personal history of nicotine dependence
CPT/HCPCS: 36415; 71045; 80048; 80053; 80162; 82803; 83605; 83735; 83880; 84100; 84484; 85025; 85610; 85730; 87040; 93005; 94640; 99284; A9270-GY; G8987-GO-CL; G8988-GO-CI; J2060; J2270; J2543; J2920; J2930